=== PATIENT | female | born 1940 | race African-American/Black ===

== ENCOUNTER 2017-03-21 06:24 | Inpatient (IN) | payer BC, OTHER ==
[2017-02-22 14:28] VITALS: BMI 35.0
--- NOTE | 2017-02-22 15:02 | PAT Medication Instructions ---
Service Date Feb 22, 2017. Current Home Medication List Aspirin (Aspir-81), 81 MG PO QAM Chlorthalidone (Hygroton), 25 TAB PO QAM Cyanocobalamin (Vitamin B12), 1 TAB PO QAM Tyzhlsskayv-Cbbrkdtlbvp-Ftj C- (Glucosamine Chondroitin), 1 CAP PO QAM Naproxen (Aleve), 440 MG PO Q12 PRN for Pain Medication Instructions For Your Scheduled Surgery - Check with surgeon for instructions: Naproxen (Aleve), 440 MG PO Q12 PRN for Pain - Hold the following medications 2 weeks prior to surgery (03/07/17): Xlzofbfsfpe-Ngbctdwmuta-Rnf C- (Glucosamine Chondroitin), 1 CAP PO QAM - Hold the following medications the morning of surgery: Cyanocobalamin (Vitamin B12), 1 TAB PO QAM Chlorthalidone (Hygroton), 25 TAB PO QAM - Take the following medications the morning of surgery with a sip of water: Aspirin (Aspir-81), 81 MG PO QAM (okay to continue per surgeon) If you have any questions please call us at [phone] or [phone] or [phone]
--- NOTE | 2017-02-22 15:39 | DIAGNOSTIC IMAGING REPORT ---
CHEST PREADMISSION(PA/LAT) CLINICAL HISTORY: PAT preoperative evaluation COMPARISON STUDY: 10/29/2014 FINDINGS: The bones soft tissues and hemidiaphragms are normal. The cardiomediastinal silhouette is normal. The lungs are clear. The pulmonary vasculature is normal. IMPRESSION: Negative chest. Electronically signed by: Spencer Pierson M.D. 02/22/2017 3:38 PM Dictated Date/Time: 02/22/2017 3:37 PM
[2017-02-22 16:24] LABS: BASO % 0.5 %; BASO ABS # 0.03 K/uL (0-0.2); COMPLETE YES; EOS % 5.3 %; HEMATOCRIT 44.3 % (37-47); IG% 0.3 %; LYMPH % 47.5 %; LYMPH ABS # 2.76 K/uL (1.2-3.4); MEAN CELL VOLUME 87.2 fL (80-100); MEAN CORPUSCULAR HEMOGLOBIN 28.9 pg (25-34); MEAN CORPUSCULAR HGB CONC 33.2 g/dl (32-36); MONO % 6.7 %; NEUT % 39.7 %; PLATELET COUNT 237 K/uL (130-400); RED BLOOD COUNT 5.08 M/uL (4.2-5.4); WHITE BLOOD COUNT 5.81 K/uL (4.8-10.8)
[2017-02-22 16:28] LABS: URINE APPEARANCE CLEAR (CLEAR); URINE BILIRUBIN NEG (NEG); URINE COLOR YELLOW; URINE EPITHELIAL CELL AUTO 20-30 /lpf (0-5); URINE NITRITE NEG (NEG); URINE SPECIFIC GRAVITY 1.026 (1.000-1.030); UROBILINOGEN NEG (NEG)
[2017-02-22 16:31] LABS: MANUAL MICROSCOPIC REQUIRED? NO; REVIEW REQ? NO
[2017-02-22 16:35] LABS: PROTHROMBIN TIME (PATIENT) 10.4 SECONDS (9.0-12.0)
[2017-02-22 16:39] LABS: BUN/CREATININE RATIO 20.3 (10-20); CALCIUM 9.3 mg/dl (8.5-10.1); POTASSIUM 3.8 mmol/L (3.5-5.1)
--- NOTE | 2017-03-07 18:06 | HISTORY & PHYSICAL EXAMINATION ---
DATE OF ADMISSION: 03/21/2017 CHIEF COMPLAINT: Right knee degenerative joint disease. HISTORY OF PRESENT ILLNESS: This 76-year-old -Citizen Of [place] female presents to the office with complaints longstanding history of right knee pain. The pain has been present for several years. It has become worse with time. It is worse with weightbearing and is affecting her ADLs. She notes crepitus with motion. Pain is primarily medial. No catching or locking. No buckling. No numbness or tingling. X-rays have been obtained. She has tried activity modification as well as oral anti-inflammatories and assistive devices without lasting relief. She elects to proceed with right total knee arthroplasty on 03/21/2017 in hopes of alleviating her pain. PAST MEDICAL HISTORY: Significant for history of diverticulitis, hypertension, osteoarthritis, chronic low back pain, obesity, sleep apnea, use of a CPAP, and reflux. PREVIOUS SURGERIES: Total hip replacement on 05/23/2016, colonoscopy x2, laparoscopy in 2014, and sigmoidectomy, unknown date. FAMILY HISTORY: Significant for Alzheimer's disease, breast cancer, colon cancer, and kidney disease. ALLERGIES: NKDA. CURRENT MEDICATIONS: Aspirin 81 mg daily, chlorthalidone 25 mg p.o. daily, Glucosamine chondroitin daily, Protonix 20 mg p.o. daily, and Naprosyn 500 mg p.o. b.i.d. REVIEW OF SYSTEMS: Significant for above stated conditions, otherwise unremarkable. PHYSICAL EXAMINATION: GENERAL: Well-developed and well-nourished elderly -Citizen Of [place] female in no acute distress. Sitting in a chair. Alert and oriented. SKIN: Warm and dry with good turgor. No rashes or lesions. No ecchymosis or erythema. HEENT: Normocephalic and atraumatic. EYES: PERRLA, EOMI. Nares patent bilaterally without turbinate enlargement. Oropharynx without erythema or exudate. No lesions noted. Uvula midline. Oral mucosa moist. Good dentition. HEART: RRR. Soft systolic ejection murmur is noted, 2/6. No gallops or rubs. LUNGS: Clear to auscultation bilaterally. No crackles, rhonchi or wheezing. Good air movement. ABDOMEN: Obese. Bowel sounds present x4. Soft and nontender. No organomegaly. No masses. MUSCULOSKELETAL: Right knee evaluation reveals no significant intraarticular effusion. She has focal discomfort with palpation over the medial joint line. No lateral joint line discomfort today. Stable collateral ligaments. Nearly full terminal extension. Lacks just a few degrees. Flexion to greater than 100 degrees. Strength is 5/5 with fairly good quad tone. No defect in the patellar tendon or quadriceps tendon. Ambulatory with a slightly antalgic gait. There is crepitus associated with motion of the knee. Varus alignment. NEUROLOGIC: Gross sensation is intact across the right leg by soft touch. Peripheral pulses are 2+. DATA: Radiographic imaging previously obtained shows bilateral varus alignment. Tricompartmental osteophytes along with joint space narrowing are present. Subchondral sclerosis is also evident. IMPRESSION: Right knee end-stage degenerative joint disease. PLAN: Informed written consent will be obtained on the day of surgery to proceed with right total knee arthroplasty. I did review the operative procedure, postoperative recovery, and physical therapy requirements. She has already obtained her lab work, EKG, and chest x-ray. She will obtain clearance from her PCP, Dr. Burden and laboratory manager, Dr. Tesfaye. She already has a walker. She would do 2 weeks of home health and then outpatient PT.
[2017-03-21] VITALS (9 sets, daily range): BP systolic 115–160; BP diastolic 67–90; PULSE 56–73; TEMP 36.3–36.7; O2SAT 90–100; Ht 165.1 cm; Wt 97.0 kg
[~2017-03-21] VITALS: Ht 165.1 cm; Wt 97.0 kg
[~2017-03-21 06:24] MED LIST: ASPI-232 PO; CEFAZOLIN 2000 MG/60 ML D5W 60 ML IV SCH; CYAN100020 PO; GLUC1CAP35 PO; HYG/25 PO; LACTATED RINGER'S 1000ML 1,000 ML IV SCH; LACTATED RINGER'S 1000ML IV SCH; NAPR1TAB9 PO; ROPIVACAINE 5MG/ML 30 ML 150 MG, BUPIVACAINE/EPINEPHR 0.5% MPF 30 ML, KETOROLAC TROMETH... INFIL SCH; TRANEXAMIC ACID INJ 1,000 MG in SODIUM CHLORIDE 0.9% 100ML 100 ML IV SCH
--- NOTE | 2017-03-21 06:26 | History & Physical Bridge Note ---
H&P Re-Evaluation Bridge Note: I have examined the patient, reviewed the History & Physical and in the interval since the performance of the History & Physical I have noted the following changes of clinical significance: consent obtained risk list reviewed. No changes noted
[2017-03-21] MEDS ORDERED: BUPIVACAINE 0.25% 30 ML VIAL ONE (06:30)
[2017-03-21] MEDS ORDERED: BUPIVACAINE 0.5 % 5 MG/1 ML PF 10ML VIAL ONE (06:30)
[2017-03-21] MEDS ORDERED: LIDOCAINE HCL 2% 2 ML VIAL (20MG/ML) ONE (07:34)
[2017-03-21] MEDS ORDERED: MIDAZOLAM HCL 1 MG/ML 2ML VIAL ONE ×2 (07:34)
[2017-03-21] MEDS ORDERED: PROPOFOL IV EMULSION 10 MG/ML 20 ML VIAL IV ONE (07:34)
[2017-03-21] MEDS ORDERED: ORTHO JOINT ANESTHETIC ONE (08:46)
[2017-03-21] MEDS ORDERED: POVIDONE-IODINE OP SOLN 30 ML BTL ONE (08:46)
[2017-03-21] MEDS ORDERED: FENTANYL CITRATE INJ 50 MCG/1 ML 2 ML VIAL ONE (09:18)
[2017-03-21] MEDS ORDERED: ROCURONIUM BROMIDE 10 MG/ML 5 ML VIAL ONE (09:38)
[2017-03-21] MEDS ORDERED: EpHEDrine SULFATE 50MG/5ML SYR ONE (09:38)
[2017-03-21] MEDS ORDERED: HYDROmorphone INJ 2 MG/ML SYR/VIAL ONE (09:40)
[2017-03-21] MEDS ORDERED: SODIUM CHLORIDE 0.9% INJ 10 ML VIAL ONE (09:45)
[2017-03-21] MEDS ORDERED: GLYCOPYRROLATE INJ 0.2 MG/ML VIAL ONE (09:46)
[2017-03-21] MEDS ORDERED: DEXAMETHASONE SOD INJ 4 MG/ML VIAL ONE (09:46)
[2017-03-21] MEDS ORDERED: NEOSTIGMINE METHYLSULFATE 5 MG/5 ML SYR ONE (09:46)
[2017-03-21] MEDS ORDERED: ONDANSETRON INJ 2 MG/ML 2 ML VIAL ONE (09:46)
[2017-03-21] MEDS ORDERED: KETOROLAC TROMETHAMINE 30 MG/ML VIAL ONE (10:30)
--- NOTE | 2017-03-21 10:36 | [facility] Post Operative Brief Note ---
Immediate Operative Summary Operative Date Mar 21, 2017. Pre-Operative Diagnosis Right Knee End-Stage Degenerative Joint Disease Post-Operative Diagnosis Right Knee End-Stage Degenerative Joint Disease Procedure(s) Performed Right Total Knee Arthroplasty Surgeon Dr. Hayes Wool Brusher Surgeon(s) DIONNE Partida Estimated Blood Loss 50 ml Findings severe deformity/djd Fluids (cc crystalloids) 1200cc Specimens A. Right Knee Bone and Tissue Drains none Anesthesia GET/block Complication(s) None Disposition Recovery Room / PACU
--- NOTE | 2017-03-21 10:52 | OPERATIVE REPORT ---
DATE OF OPERATION: 03/21/2017 PREOPERATIVE DIAGNOSIS: Severe osteoarthritis, right knee with marked varus flexion deformity. POSTOPERATIVE DIAGNOSIS: Same. OPERATION PERFORMED: Cemented right total knee replacement. SURGEON: Dr. Hayes. ASSOCIATE CURATOR: Danish Angeles PA-C. No resident or fellow available. SUMMARY OF IMPLANTS: Size 3 posterior cruciate substituting femur, size 4 rotating tibial keel baseplate, oval domed 3 pegged patella size 41, size 3 insert to match the femur, posterior cruciate stabilized 15 mm thick. Two bags of Palacos G cement. ESTIMATED BLOOD LOSS: 50 mL. CRYSTALLOID: 1200 mL. PERIOPERATIVE SITUATION: Medically cleared female with intractable bilateral knee pain, right worse than left. X-rays reveal end-stage disease with marked varus deformity, flexion deformity, severe tricompartmental osteophytes and joint space narrowing. OPERATION AND FINDINGS: OPERATION: The patient appropriately identified, site verified, consent verified, 2 grams of Ancef confirmed as being given, 1 gram of TXA confirmed as being given. The right lower extremity was prepped and draped in usual routine fashion. Tourniquet was inflated to 300 mmHg after exsanguination of limb with a rubber Esmarch bandage. Anterior exposure was utilized. Parapatellar arthrotomy performed. Synovectomy completed. Exuberant osteophytes resected. Distal femur then resected 14 mm. Proximal tibia resected 4 mm. The extension gap was excellent. Femur was sized between a 4 and a 3, was measured 4 cut 3. There was no notching. The flexion gap was excellent. The box cut then made and the size 3 trial fit well. The tibia was then broached and reamed to a size 4 and a size 3 spacer with a 15 mm fit best. It gave the best stability in extension and full flexion. The patella was then sized to 41. It was resected leaving 16 mm and the seating hole was made and the trial fit well and tracked well. All trial implants were then removed. The Orthomix was injected about the knee. The wound was irrigated with Betadine Pulsavac and then the permanents cemented into position. After 12 minutes, the tourniquet deflated. After 14 minutes the knee flexed. Minor cement removal occurred. The wound was irrigated one final time with Betadine and Pulsavac. The permanent liner seated. The knee reduced and closed with #1 Ethibond, #1 Vicryl, 2-0 Vicryl and stainless steel clips. Appropriate dressing applied and the patient transferred to recovery room in satisfactory condition having tolerated the procedure well. DVT prophylaxis with Coumadin. I attest to the content of the Intraoperative Record and any orders documented therein. Any exception s are noted below.
[2017-03-21] MEDS ORDERED: ALUMINUM/MAGNESIUM/SIMETH (MAALOX MAX) 30 ML UDC PO PRN (11:00)
[2017-03-21] MEDS ORDERED: BISACODYL 10 MG SUPP PR PRN (11:00)
[2017-03-21] MEDS ORDERED: MoRPHine SULFATE 2 MG/ML CARP IV PRN (11:00)
[2017-03-21] MEDS ORDERED: ACETAMINOPHEN IV 100 ML IV PRN (11:00)
[2017-03-21] MEDS ORDERED: ONDANSETRON INJ 2 MG/ML 2 ML VIAL IV PRN (11:00)
[2017-03-21] MEDS ORDERED: DiphenhydrAMINE HCL 50 MG/ML VIAL IV PRN (11:00)
[2017-03-21] MEDS ORDERED: MAGNESIUM HYDROXIDE SUSP 30 ML UDC PO PRN (11:00)
[2017-03-21] MEDS ORDERED: METOCLOPRAMIDE HCL INJ 5 MG/ML 2 ML VIAL IV PRN (11:00)
--- NOTE | 2017-03-21 11:13 | DIAGNOSTIC IMAGING REPORT ---
RIGHT KNEE 1 OR 2 VIEWS ROUTINE CLINICAL HISTORY: AP/LATERAL IN PACU RIGHT KNEE Right joint replacement COMPARISON: None. DISCUSSION: Anatomic alignment status post total right knee replacement. Good contact between prosthetic and underlying bone. Soft tissue postoperative changes are present. Expected soft tissue postoperative change IMPRESSION: Anatomic alignment status post total right knee replacement. The above report was generated using voice recognition software. It may contain grammatical, syntax or spelling errors. Electronically signed by: Spencer Pierson M.D. 03/21/2017 11:12 AM Dictated Date/Time: 03/21/2017 11:11 AM
--- NOTE | 2017-03-21 11:18 | Anesthesiology Progress Note ---
Anesthesia Post Op Note Date & Time Mar 21, 2017 at 11:17 Vital Signs Pain Intensity: 0 Vital Signs Past 12 Hours Date Time Temp Pulse Resp B/P (MAP) Pulse Ox O2 Delivery O2 Flow Rate FiO2 03/21/17 11:05 66 18 148/75 94 Nasal Cannula 3 03/21/17 10:55 71 16 141/72 97 Oxymask 10 03/21/17 10:46 36.4 82 16 139/73 98 Oxymask 10 03/21/17 07:06 36.7 56 20 142/71 96 Room Air Notes Mental Status: alert / awake / arousable, participated in evaluation Pt Amnestic to Procedure: Yes Nausea / Vomiting: adequately controlled Pain: adequately controlled Airway Patency, RR, SpO2: stable & adequate BP & HR: stable & adequate Hydration State: stable & adequate Anesthetic Complications: no major complications apparent
[2017-03-21] MEDS ORDERED: ATROPINE SULFATE 0.1 MG/ML 5ML SYR IV PRN (11:30)
[2017-03-21] MEDS ORDERED: EpHEDrine SULFATE INJ 50 MG/ML AMP IV PRN (11:30)
[2017-03-21] MEDS ORDERED: MoRPHine SULFATE 4 MG/ML 1 ML CARP\\VIAL IV PRN (12:30)
[2017-03-21] MEDS ORDERED: D5W AND 1/2NSS + 20MEQ KCL 1,000 ML IV SCH (12:30)
[2017-03-21] MEDS ORDERED: KETOROLAC TROMETHAMINE 15 MG/ML VIAL IV. SCH ×2 (12:45→16:00)
[2017-03-21] MEDS: FERROUS GLUCONATE 324 MG TAB PO SCH ×2 (13:10→17:48)
[2017-03-21] MEDS ORDERED: PNEUMOCOCCAL ADMINISTRATION CHARGE ONE (13:15)
[2017-03-21] MEDS ORDERED: PNEUMOCOCCAL POLYSACCHARIDES 25 MCG/0.5 ML VIAL/SYR IM. ONE (13:15)
--- NOTE | 2017-03-21 13:23 | [facility] Operative Report ---
Operative Report Operative Date Mar 21, 2017. Pre-Operative Diagnosis Right Knee End-Stage Degenerative Joint Disease Post-Operative Diagnosis Right Knee End-Stage Degenerative Joint Disease Procedure(s) Performed Right Total Knee Arthroplasty Surgeon Dr. Hayes Steam Locomotive Firer/Fireman Surgeon(s) DIONNE Partida Estimated Blood Loss 50 ml Findings Right knee DJD Fluids 1200cc Specimens A. Right Knee Bone and Tissue Drains none Anesthesia GET/block Complication(s) None Disposition Recovery Room / PACU Indications This 76-year-old -Citizen Of [place] female presented the office complaints of intractable right knee pain. She had tried conservative care measures including activity modification, physical therapy, oral anti-inflammatories, and injection therapy without lasting relief. She elected to proceed with knee replacement in hopes of alleviating her pain. Preoperative imaging was obtained. Description of Procedure She was administered a regional block. Patient was taken to the operating room where she was given general anesthesia. She was prepped and draped in usual sterile fashion. Please see Dr. Hayes's operative report for specifics of the procedure. I was present for the entire case from initial patient positioning through final wound closure. Assistance was provided in tissue traction, hemostasis, trial implant placement, final implant placement, and final wound closure. Patient was taken to the recovery room in satisfactory condition. I attest to the content of the Intraoperative Record and any orders documented therein. Any exceptions are noted below.
[2017-03-21] MEDS ORDERED: NURSING VERBAL MED ORDER ONE (13:30)
--- NOTE | 2017-03-21 13:40 | Progress Note ---
Progress Note Date of Service Mar 21, 2017. Progress Note Progress note postop check. At this point in time she is doing well denies chest pain shortness breath fever chills nausea vomiting or headache. Physical sleepy. Vital signs are stable she's afebrile. Neurovascular check from sciatic nerve is good cast nontender. Postop x-rays look excellent. Assessment: Doing well continue care pathway, mobilize.
[2017-03-21] MEDS: CHLORTHALIDONE 25 MG TAB PO SCH (13:47)
[2017-03-21] MEDS ORDERED: OXYC-57 PO (15:29)
[2017-03-21] MEDS ORDERED: WARF2TAB PO (15:29)
[2017-03-21] MEDS ORDERED: WARFARIN SOD 5 MG TAB PO SCH (16:00)
[2017-03-21] MEDS ORDERED: TRANEXAMIC ACID INJ 1,000 MG in SODIUM CHLORIDE 0.9% 100ML 100 ML IV SCH (16:00)
[2017-03-21] MEDS: KETOROLAC TROMETHAMINE 15 MG/ML VIAL IV. SCH ×2 (16:34→22:04)
[2017-03-21] MEDS: CEFAZOLIN IV 2,000 MG in DEXTROSE 5% 50ML 50 ML IV SCH (17:49)
[2017-03-21] MEDS: ACETAMINOPHEN 325 MG TAB PO PRN (20:58)
[2017-03-21] MEDS: DOCUSATE SODIUM 100 MG CAP PO SCH (20:58)
[2017-03-22] MEDS: CEFAZOLIN IV 2,000 MG in DEXTROSE 5% 50ML 50 ML IV SCH (02:11)
[2017-03-22 03:17] VITALS: BP 138/79; PULSE 56; TEMP 36.5; O2SAT 96
[2017-03-22] MEDS: KETOROLAC TROMETHAMINE 15 MG/ML VIAL IV. SCH ×2 (03:19→11:02)
[2017-03-22 05:43] LABS: HEMATOCRIT 36.8 % (37-47); MEAN CELL VOLUME 86.4 fL (80-100); MEAN CORPUSCULAR HEMOGLOBIN 28.2 pg (25-34); MEAN CORPUSCULAR HGB CONC 32.6 g/dl (32-36); MEAN PLATELET VOLUME 11.1 fL (7.4-10.4); PLATELET COUNT 203 K/uL (130-400); RED BLOOD COUNT 4.26 M/uL (4.2-5.4); WHITE BLOOD COUNT 12.48 K/uL (4.8-10.8)
[2017-03-22 05:51] LABS: PROTHROMBIN TIME (PATIENT) 10.4 SECONDS (9.0-12.0)
[2017-03-22 06:17] LABS: CALCIUM 9.1 mg/dl (8.5-10.1); CREATININE 1.3 mg/dl (0.60-1.20)
--- NOTE | 2017-03-22 07:27 | PROGRESS NOTE ---
DATE: 03/22/2017 Postop day #1. At this point the patient is doing well, has no major issues. She is sleeping comfortably with her CPAP machine on. She denies any nausea, vomiting, chest pain, shortness of breath, fever or chills. Vital signs are stable. She is afebrile. Wound dressing clean, dry and intact. Neurovascular check, femoral sciatic nerve normal. Calf is nontender. Abdomen soft, nontender. Laboratory work reveals hematocrit is stable in the 36 range. INR is 1.0. Chemistry is good. Creatinine slightly elevated. ASSESSMENT: Doing well. Plan is for PT, OT today. Social service assessment. If she does well with PT, OT, discharge today. Coumadin per nomogram today. Will discharge on 4 mg daily after that. Check INR on Sunday.
[2017-03-22] MEDS ORDERED: DEXAMETHASONE INJ 10 MG in SYRINGE 0 ML IV ONE (07:30)
--- NOTE | 2017-03-22 07:37 | DISCHARGE SUMMARY ---
DATE OF POTENTIAL DISCHARGE: 03/22/2017 versus 03/23/2017. CHIEF COMPLAINT: Right knee pain. HISTORY OF PRESENT ILLNESS: A 76-year-old female with multiple joint arthropathies, who had a right hip replacement done earlier in the year, now having a right knee replacement. She also has significant left knee arthritis. She underwent elective right total knee replacement yesterday and has done well. She is eating, ambulating and voiding with no difficulty. PAST MEDICAL HISTORY: Remarkable for diverticulitis, hypertension, osteoarthritis, back pain, obesity, sleep apnea, CPAP use, and reflux. PAST SURGICAL HISTORY: Include total hip replacement in May 2016, colonoscopies, laparoscopy, sigmoidectomy unknown date. FAMILY HISTORY: Remarkable for Alzheimer's disease, breast cancer, colon cancer, and kidney disease. ALLERGIES: None. PREADMISSION MEDICATIONS: Include 81 mg aspirin daily, chlorthalidone 25 mg daily, Protonix 20 mg daily, p.r.n. Naprosyn and glucosamine. REVIEW OF SYSTEMS: Reveals no chest pain, shortness of breath, fevers, chills, nausea, vomiting or headache. Hospital course has been uneventful. At this point in time laboratory work is stable. Slight elevation of her creatinine, will need to encourage p.o. and fluid intake, avoid nonsteroidals. Wound dressing clean, dry and intact. Neurovascular check is normal. Hematocrit stable. INR subtherapeutic. ASSESSMENT: Doing well. Discharge after successful PT, OT sessions either later today or tomorrow. Will conditionally prepare for today. Will follow up in the office in 2 weeks.
[2017-03-22 08:05] VITALS: BP 124/70; PULSE 66; TEMP 37; O2SAT 94
[2017-03-22 08:22] VITALS: O2SAT 94
--- NOTE | 2017-03-22 08:27 | Discharge Instructions ---
Discharge Instructions Date of Service Mar 21, 2017. Admission Reason for Admission: Right Knee Degenerative Joint Disease Discharge Discharge Diagnosis / Problem: Right knee s/p total knee replacement Discharge Goals Goal(s): Decrease discomfort, Improve function, Increase independence Activity Recommendations Activity Limitations: as noted below Lifting Limitations: gradually increase as tolerated Exercise/Sports Limitations: until after follow-up appointment Shower/Bathe: keep incision dry Driving or Machine Use: No driving until cleared by Dr. Hayes Weightbearing Status: Right weightbearing (as tolerated) . Instructions / Follow-Up Instructions / Follow-Up New Medicine: * You will likely be taking one or more of these medications: 1. Percocet - Take, as directed, when you need it, every four to six hours to control your pain. 2. Coumadin - Thins your blood to lessen the chance of forming a blood clot. The dose of this is different for each person and is based on your blood tests that are done twice a week. * The most common side effects of pain medicine and iron are nausea and constipation. If nausea or constipation is too much of a problem or if you have any questions about your new medicines or doses, call [facility] at . We will try to help you manage these issues. VERY IMPORTANT TO READ AND REVIEW" Blood Clots and Blood Thinning Medicine: * You are given Coumadin during the immediate post-operative period to lessen the risk of blood clots forming in your legs and/or lungs. Coumadin is usually given for six weeks after surgery. * The prescription is for 2 mg tablets. At discharge, you should understand your dose and take it all at the same time every day, preferably after dinner. * You need to get your blood checked 1 - 2 times per week for six weeks or as directed. * If your dose needs to change, we will call you. Do not take your medication on the day of the blood test until we call you. Pain: * The immediate post-operative period after knee replacement surgery is often quite painful. * You are given a prescription for pain medicine. You should take it, as directed, when you need it, especially before physical therapy and before going to bed. Pain that interferes with sleep is very common and can last several months. * You will likely need pain medicine for the first four to six weeks. It will not stop all of the pain. The pain will lessen and as you feel better, you may change to milder pain medicine such as Tylenol. * The most common side effects of pain medicine are nausea and constipation, so don't take more than you need. Physical Therapy: * You will have physical therapy two or three times each week for four to six weeks after your surgery in order to regain your knee range of motion and to retrain your knee to work properly. * It is just as important to make sure you are getting your knee perfectly straight as it is to regain your knee bend. * Taking a pain pill an hour before therapy can help you have a more productive and comfortable therapy session if needed. Home Exercise: * You were shown a series of exercises (heel props, heel slides, etc.) in the hospital. Do these exercises three to four times each day including the exercises you were shown in physical therapy. Walking: * Get up and walk several times each day. For the first four weeks, try not to stand or walk for more than one hour at a time. If you do stand or walk for more than one hour, you will not hurt anything, but your knee and leg will likely swell. * As you feel comfortable, you may change from the walker or crutches to a cane and then to independent walking. SELF CARE INSTRUCTIONS AFTER TOTAL KNEE REPLACEMENT A. You may need to continue a physical therapy program after discharge from the hospital. There are several options available to you. Your doctor will assist you in selecting the best one for you. 1. An out-patient facility 2 to 3 times a week for therapy or home therapy. 2. Continue working on all exercises taught to you in the hospital. Your goals should be to increase bending of your knee to 90 degrees and beyond and to fully straighten your knee. B. You may progress at your own pace from walking with a walker or crutches to a cane; then to no assistive devices. C. Make walking a part of your daily routine. Be up as much as comfortable with rest periods throughout the day. Rest with leg elevation is very important. Use the ice wrap frequently for the first 3-4 weeks. D. There are no restrictions on activities. You may ride in a car, shop, participate in meter changes records clerk and all social activities. E. Wear the long elastic stockings (JEN hose) 20 hours a day for six weeks after surgery. They can be removed several times a day for laundering and for a shower. F. Do not place a pillow behind your knee when resting. A pillow at your ankle is okay. VERY IMPORTANT TO READ AND REVIEW A. Take Coumadin, Aspirin or Lovenox (blood thinning medications) as directed by your doctor. If on Coumadin, have a pro-time (blood test) drawn according to your doctor's instructions. This will tell the doctor how well the Coumadin is thinning your blood. 1. YOU WILL BE GIVEN AN ORDER AT DISCHARGE FOR PT/INR (BLOOD WORK). PLEASE HAVE THIS DONE INSTRUCTED. PLEASE CALL OUR OFFICE AFTER YOUR BLOODWORK IS COMPLETE SO WE CAN TRACK YOUR RESULTS. IF YOU ARE GOING TO OUTPATIENT PHYSICAL THERAPY, YOU WILL NEED TO GO TO OUTPATIENT TESTING TO HAVE IT DRAWN. B. There are a few signs you need to watch for after you are home. Call [facility] if you notice any of the followin. Increased severe knee pain. Some pain is expected especially when you exercise. 2. Increased swelling in your leg or knee; pain or swelling of the calf muscle in either lower leg. 3. Any fluid drainage from the incision. 4. Shortness of breath or chest pain. C. Please call [facility] at if you have any concerns or questions about your operation or recovery. The doctor or his nurse will return your call promptly. D. You must take antibiotics before dental work, bladder, bowel or other surgery. Call the office to obtain a prescription at least 2 days prior to your appointment. * CALL IF INCREASED PAIN, REDNESS, DRAINAGE OR FEVER GREATER THAT 101. * Sutures should be removed 12-14 days after surgery unless you are on chronic steriods, then it will be 14-18 days after surgery. Call your doctor if: * Temperature above 101 degrees F. * Pain not relieved by pain medicine ordered. * Increased drainage or redness from incision. * Notify your doctor with any questions or concerns. Current Hospital Diet Patient's current hospital diet: Regular Diet Discharge Diet Recommended Diet: Regular Diet Procedures Procedures Performed: Right Total Knee Arthroplasty Pending Studies Studies pending at discharge: no Medical Emergencies . Who to Call and When: Medical Emergencies: If at any time you feel your situation is an emergency, please call 911 immediately. . Non-Emergent Contact Non-Emergency issues call your: Primary Care Provider, Surgeon Call Non-Emergent contact if: temperature is above 101, wound has increased drainage, wound has increased redness, wound has increased pain, you have any medication questions . "Provider Documentation" section prepared by Danish Angeles PA-C. . VTE Core Measure Inpt VTE Proph given/why not?: Warfarin (Coumadin), T.E.D. Stockings, SCD's [place] Drug Monitoring Program Search Results: no issues identified
--- NOTE | 2017-03-22 08:31 | Orthopedic Progress Note ---
Orthopedic Progress Note Date of Service Mar 22, 2017. Subjective Post OP Day: 1 Reports: feeling well, Denies: complaints, chest pain, SOB, nausea / vomiting, light headedness, calf pain Additional Notes: states she did not sleep much due to interruptions. Really doesn't have much pain. Objective calves soft nontender, N/V intact, capillary refill less than 2 sec., dressing C /D/I, incision C/D/I, A&O x3, toes mobile, CMS intact dried drainage on dressings. No active bleeding. Able to do a straight leg raise. Date Time Temp Pulse Resp B/P (MAP) Pulse Ox O2 Delivery O2 Flow Rate FiO2 03/22/17 08:22 94 Room Air 03/22/17 08:13 Room Air 03/22/17 08:05 37.0 66 15 124/70 (88) 94 Room Air 03/22/17 03:17 36.5 56 16 138/79 (98) 96 CPAP 03/21/17 23:26 Room Air 03/21/17 23:00 36.4 59 16 143/73 (96) 100 Room Air 03/21/17 21:30 36.4 70 16 136/76 (96) 95 Room Air 03/21/17 16:30 Nasal Cannula 03/21/17 15:01 36.3 59 18 124/75 (91) 94 Room Air 03/21/17 14:30 73 16 115/70 (85) 97 03/21/17 13:45 56 16 123/67 (85) 92 03/21/17 12:45 69 16 160/90 (113) 93 03/21/17 12:00 60 16 153/81 (105) 93 03/21/17 11:59 90 Nasal Cannula 3.0 03/21/17 11:30 90 Nasal Cannula 3.0 03/21/17 11:30 36.4 60 16 153/76 (101) 90 Nasal Cannula 3.0 03/21/17 11:15 36.4 63 16 153/74 93 Nasal Cannula 3 03/21/17 11:05 66 18 148/75 94 Nasal Cannula 3 03/21/17 10:55 71 16 141/72 97 Oxymask 10 03/21/17 10:46 36.4 82 16 139/73 98 Oxymask 10 Laboratory Results 24 Hours: Test 03/22/17 05:21 Hematocrit 36.8 % Hemoglobin 12.0 g/dL Prothromb Time International Ratio 1.0 Prothrombin Time 10.4 SECONDS Assessment & Plan Assessment: Right knee post op day 1 total knee arthroplasty Plan: PT/OT today coumadin per nomogram dressing changed today by me-wound looks very good plan for D/C to home today with home health if she does well in PT/OT continue immobilizer for protection today and tomorrow when out of bed. follow up in the office in 2 weeks for staple removal. Discharge Planning Discharge Planning: home with home health Pain Management: Percocet DVT Prophylaxis: TEDs, SCDs, Coumadin Therapy: Physical Therapy
[2017-03-22] MEDS: DOCUSATE SODIUM 100 MG CAP PO SCH (08:54)
[2017-03-22] MEDS: FERROUS GLUCONATE 324 MG TAB PO SCH ×2 (08:54→12:30)
[2017-03-22] MEDS: CHLORTHALIDONE 25 MG TAB PO SCH (08:55)
[2017-03-22] MEDS: ACETAMINOPHEN 325 MG TAB PO PRN (08:58)
[2017-03-22] MEDS ORDERED: ASPIRIN 81 MG ECTAB PO SCH (09:00)
[2017-03-22] MEDS ORDERED: MULTIVITAMIN TAB PO SCH (09:00)
[2017-03-22] MEDS ORDERED: PANTOprazole SOD 40 MG TAB PO SCH (09:00)
[2017-03-22] MEDS: OXYCODONE HCL IR 5 MG TAB (IMMEDIATE RELEASE) PO PRN ×2 (09:54→13:46)
[2017-03-22 12:05] VITALS: BP_SYST 146; BP_SYST 147; BP_DIAS 72; BP_DIAS 73; PULSE 61; TEMP 36.9; O2SAT 97
[2017-03-22 12:21] VITALS: BP 124/70; PULSE 66; TEMP 37; O2SAT 94
[2017-03-22] MEDS ORDERED: WARFARIN SOD 5 MG TAB PO ONE (16:00)
== END 2017-03-22 14:15 | disposition home health service (06) | DRG 470 ==
LOC: C.ACU 06:24 → C.3E 06:25 → ENRESERV 11:02
PROVIDERS: ADMIT Physical Medicine & Rehabilitation Sports Medicine; ATTEND Physical Medicine & Rehabilitation Sports Medicine
PROC: 0SRC0J9 Replacement of Right Knee Joint with Synthetic Substitute, Cemented, Open Approach (ICD-10-PCS; principal; 2017-03-21 09:00)
DX: M17.11 Unilateral primary osteoarthritis, right knee (principal); I10 Essential (primary) hypertension; E66.9 Obesity, unspecified; Z68.35 Body mass index [BMI] 35.0-35.9, adult; G89.29 Other chronic pain; M54.5 Low back pain; G47.30 Sleep apnea, unspecified; K21.9 Gastro-esophageal reflux disease without esophagitis; Z96.641 Presence of right artificial hip joint; Z90.49 Acquired absence of other specified parts of digestive tract; Z87.19 Personal history of other diseases of the digestive system; Z79.1 Long term (current) use of non-steroidal anti-inflammatories (NSAID); Z79.82 Long term (current) use of aspirin; Z79.899 Other long term (current) drug therapy; Z80.0 Family history of malignant neoplasm of digestive organs; Z80.3 Family history of malignant neoplasm of breast; Z82.0 Family history of epilepsy and other diseases of the nervous system; Z84.1 Family history of disorders of kidney and ureter

== ENCOUNTER → 2017-03-26 | Outpatient (CLI) | payer BC ==
[~2017-03-26] MED LIST changes: -CEFAZOLIN 2000 MG/60 ML D5W 60 ML IV SCH; -GLUC1CAP35 PO; -LACTATED RINGER'S 1000ML 1,000 ML IV SCH; -LACTATED RINGER'S 1000ML IV SCH; -NAPR1TAB9 PO; +OXYC-57 PO; -ROPIVACAINE 5MG/ML 30 ML 150 MG, BUPIVACAINE/EPINEPHR 0.5% MPF 30 ML, KETOROLAC TROMETH... INFIL SCH; -TRANEXAMIC ACID INJ 1,000 MG in SODIUM CHLORIDE 0.9% 100ML 100 ML IV SCH; +WARF2TAB PO
[2017-03-26 13:10] LABS: INR 1.1 (0.9-1.1); PROTHROMBIN TIME (PATIENT) 11.9 SECONDS (9.0-12.0)
--- NOTE | 2017-04-20 10:46 | CODING QUERY NO DIAGNOSIS ---
Valid Physician Order Needed A valid physician order must be submitted in order to properly bill for the service(s) provided, including date of service(s), valid diagnosis, and physician signature. If these tests are done on a recurring basis the original physican order must be submitted in order to code and bill for the service(s) provided. Please fax us the original, signed physician order so that we may expedite billing to [phone] DOS 03/26/2017 * PT/INR Thank you [facility] Management Thank you [employer] [facility] Once completed, please kindly fax back to [phone] For questions please call [phone]
== END | disposition home or self-care (01) ==
LOC: C.LABSPEC 12:44
PROVIDERS: ATTEND Physical Medicine & Rehabilitation Sports Medicine
DX: M21.162 Varus deformity, not elsewhere classified, left knee (principal); M54.5 Low back pain; Z47.1 Aftercare following joint replacement surgery

== ENCOUNTER → 2017-03-30 | Outpatient (CLI) | payer BC ==
[2017-03-30 10:32] LABS: INR 1.1 (0.9-1.1); PROTHROMBIN TIME (PATIENT) 12.2 SECONDS (9.0-12.0)
--- NOTE | 2017-04-10 08:24 | CODING QUERY NO DIAGNOSIS ---
Valid Physician Order Needed A valid physician order must be submitted in order to properly bill for the service(s) provided, including date of service(s), valid diagnosis, and physician signature. If these tests are done on a recurring basis the original physican order must be submitted in order to code and bill for the service(s) provided. Please fax us the original, signed physician order so that we may expedite billing to [phone] DOS 03/30/17 * PT/INR ORDERED BY DR. CLANCY Thank you [facility] Information Management
== END | disposition home or self-care (01) ==
LOC: C.LABSPEC 09:48
PROVIDERS: ATTEND Physical Medicine & Rehabilitation Sports Medicine
DX: Z47.1 Aftercare following joint replacement surgery (principal); Z51.81 Encounter for therapeutic drug level monitoring; Z79.01 Long term (current) use of anticoagulants

== ENCOUNTER → 2017-04-02 | Outpatient (CLI) | payer BC ==
[2017-04-02 14:43] LABS: INR 1.6 (0.9-1.1)
--- NOTE | 2017-04-10 08:26 | CODING QUERY NO DIAGNOSIS ---
Valid Physician Order Needed A valid physician order must be submitted in order to properly bill for the service(s) provided, including date of service(s), valid diagnosis, and physician signature. If these tests are done on a recurring basis the original physican order must be submitted in order to code and bill for the service(s) provided. Please fax us the original, signed physician order so that we may expedite billing to [phone] DOS 04/02/17 * PT/INR ORDERED BY DR. CLANCY Thank you [facility] Information Management
== END | disposition home or self-care (01) ==
LOC: C.LABSPEC 14:19
PROVIDERS: ATTEND Physical Medicine & Rehabilitation Sports Medicine
DX: Z47.1 Aftercare following joint replacement surgery (principal); Z51.81 Encounter for therapeutic drug level monitoring; Z79.01 Long term (current) use of anticoagulants

== ENCOUNTER → 2017-04-09 | Outpatient (CLI) | payer BC ==
[2017-04-09 16:06] LABS: INR 3.2 (0.9-1.1); PROTHROMBIN TIME (PATIENT) 36.4 SECONDS (9.0-12.0)
== END | disposition home or self-care (01) ==
LOC: C.LAB1850 14:03
PROVIDERS: ATTEND Physician Assistant
DX: Z51.81 Encounter for therapeutic drug level monitoring (principal); Z79.01 Long term (current) use of anticoagulants

== ENCOUNTER → 2017-04-19 | Outpatient (CLI) | payer BC ==
--- NOTE | 2017-04-19 15:39 | MAMMOGRAPHY REPORT ---
BILATERAL DIGITAL SCREENING MAMMOGRAM WITH CAD: 04/19/2017 CLINICAL HISTORY: Routine screening. Patient has no complaints. TECHNIQUE: Bilateral CC and MLO views were obtained. Current study was also evaluated with a Compute r Aided Detection (CAD) system. COMPARISON: Comparison is made to exams dated: 10/01/2015 mammogram, 07/31/2012 mammogram, 07/14/2009 mammogram - [facility], 12/06/2006, and 01/25/2005 mammogram - [facility]. BREAST COMPOSITION: There are scattered areas of fibroglandular density in both breasts. FINDINGS: There is stable asymmetry in the lateral left breast, and stable benign-appearing masses ve rsus benign duct ectasia in the subareolar right breast. No new suspicious mass, architectural disto rtion or cluster of microcalcifications is seen. IMPRESSION: ACR BI-RADS CATEGORY 1: NEGATIVE There is no mammographic evidence of malignancy. A 1 year screening mammogram is recommended. The pa tient will receive written notification of the results. Approximately 10% of breast cancers are not detected with mammography. A negative mammographic report should not delay biopsy if a clinically suggestive mass is present. Anjelica Amador M.D. ay/:04/19/2017 15:21:30 Grease Cup Filler: Alondra Malloy RT(R)(Jordana)(DYASI), [facility] letter sent: Normal 1/2 BI-RADS Code: ACR BI-RADS Category 1: Negative
== END | disposition home or self-care (01) ==
LOC: C.MAMM 13:20
PROVIDERS: ATTEND Nurse Practitioner Family
DX: Z12.31 Encounter for screening mammogram for malignant neoplasm of breast (principal); Z13.820 Encounter for screening for osteoporosis; M85.852 Other specified disorders of bone density and structure, left thigh

== ENCOUNTER → 2017-05-21 | Outpatient (CLI) | payer BC | END | disposition home or self-care (01) | LOC: C.RDSM 13:51 | PROVIDERS: ATTEND Physical Medicine & Rehabilitation Sports Medicine | DX: Z47.1 Aftercare following joint replacement surgery (principal); Z96.659 Presence of unspecified artificial knee joint ==

== ENCOUNTER 2017-08-29 06:21 | Inpatient (IN) | payer BC, OTHER ==
[2017-08-10 12:13] LABS: BASO % 0.7 %; BASO ABS # 0.03 K/uL (0-0.2); EOS % 7.5 %; HEMATOCRIT 42.8 % (37-47); HEMOGLOBIN 14.1 g/dL (12.0-16.0); LYMPH % 48.3 %; LYMPH ABS # 1.94 K/uL (1.2-3.4); MEAN CELL VOLUME 85.8 fL (80-100); MEAN CORPUSCULAR HEMOGLOBIN 28.3 pg (25-34); MEAN CORPUSCULAR HGB CONC 32.9 g/dl (32-36); MEAN PLATELET VOLUME 11.7 fL (7.4-10.4); MONO % 8.5 %; MONO ABS # 0.34 K/uL (0.11-0.59); NEUT ABS # 1.41 K/uL (1.4-6.5); PLATELET COUNT 239 K/uL (130-400); RED CELL DISTRIBUTION WIDTH CV 14.9 % (11.5-14.5); WHITE BLOOD COUNT 4.02 K/uL (4.8-10.8)
[2017-08-10 12:42] LABS: BLOOD UREA NITROGEN 18 mg/dl (7-18); CALCIUM 9.3 mg/dl (8.5-10.1); CARBON DIOXIDE 29 mmol/L (21-32); CREATININE 0.93 mg/dl (0.60-1.20); GLUCOSE 114 mg/dl (70-99); POTASSIUM 3.5 mmol/L (3.5-5.1); SODIUM 138 mmol/L (136-145)
[2017-08-20 13:11] VITALS: BMI 35.0
--- NOTE | 2017-08-22 15:32 | HISTORY & PHYSICAL EXAMINATION ---
DATE OF ADMISSION: 08/29/2017 CHIEF COMPLAINT: Left knee pain. HISTORY OF PRESENT ILLNESS: This 77-year-old -[place] female presented to the office with complaints of left knee pain that has been ongoing for several years. It has become worse with time. It is worse with ambulation and is affecting her ADLs. She has tried activity modification as well as oral anti-inflammatories and physical therapy without improvement. X-rays have been obtained. She elects to proceed with left total knee arthroplasty in hopes of alleviating her discomfort. She has a history of previous right total knee arthroplasty and right total hip arthroplasty with improvement in pain at those sites. PAST MEDICAL HISTORY: Significant for a history of heart murmur, hypertension, sleep apnea, uses CPAP, osteoarthritis, chronic neck pain, chronic low back pain, GERD, hiatal hernia, varicose veins, diverticula of the colon, osteopenia, and obesity. PREVIOUS SURGERIES: Sigmoidectomy, laparoscopy, colonoscopies, right total hip in May 2016, right total knee in March 2017, and wrist surgery. FAMILY HISTORY: Significant for Alzheimer's disease, breast cancer, colon cancer, and kidney disease. Parents are . ALLERGIES: NKDA. CURRENT MEDICATIONS: Aspirin 81 mg daily, chlorthalidone 25 mg p.o. daily, glucosamine chondroitin daily, and amoxicillin prior to dental procedures. Recently on Zithromax. REVIEW OF SYSTEMS: Significant for above stated conditions, otherwise unremarkable. PHYSICAL EXAMINATION: GENERAL: Well-developed and well-nourished elderly white female in no acute distress. Sitting on a bed. Alert and oriented. SKIN: Warm and dry with good turgor. No rashes or lesions. No ecchymosis or erythema. HEENT: Normocephalic and atraumatic. Eyes: PERRLA, EOMI. Nares patent bilaterally without turbinate enlargement. Oropharynx is without erythema or exudate. No lesions noted. Uvula midline. Oral mucosa moist. Good dentition. HEART: RRR. Soft systolic ejection murmur is noted, 2/6. No gallops or rubs. LUNGS: Clear to auscultation bilaterally. No crackles, rhonchi or wheezing. Good air movement. ABDOMEN: Obese. Bowel sounds present x4. Soft and nontender. No organomegaly. No masses. MUSCULOSKELETAL: Left knee evaluation reveals no significant intraarticular effusion. She has focal discomfort with palpation over the medial joint line. There is also lateral joint line discomfort today. Stable collateral ligaments. Near full terminal extension. She lacks just a few degrees. Flexion to greater than 100 degrees. Strength is 5/5 with fair quad tone. No defect in the patellar tendon or quadriceps tendon. Ambulatory with a slightly antalgic gait. There is a patellofemoral crepitus with motion. Varus alignment. NEUROLOGIC: Gross sensation is intact across the left leg by soft touch. Cranial nerves II-XII are intact. DATA: Radiographic imaging previously obtained shows varus alignment with tricompartmental osteophytes and joint space narrowing. She also has subchondral sclerosis. IMPRESSION: Left knee end-stage degenerative joint disease. PLAN: Postoperative prescriptions for Percocet and Coumadin will be provided at discharge from the hospital. Anticipate discharge to home with home health for 2 weeks and then outpatient PT. She already has a walker. Informed written consent has been obtained. Preoperative lab work, EKG, and chest x-ray have been ordered. She will make an appointment for medical clearance with her PCP.
[~2017-08-29] VITALS: Ht 165.1 cm; Wt 98.0 kg
[2017-08-29] VITALS (8 sets, daily range): BP systolic 116–139; BP diastolic 66–77; PULSE 57–71; TEMP 36.3–36.6; O2SAT 91–97; Ht 165.1 cm; Wt 98.0 kg
[~2017-08-29 06:21] MED LIST changes: +CEFAZOLIN 2000MG IV PUSH 10 ML IV SCH; +GLUCTAB7 PO; +LACTATED RINGER'S 1000ML 1,000 ML IV SCH; +LACTATED RINGER'S 1000ML 500 ML IV SCH; +LACTATED RINGER'S 1000ML IV SCH; +NAPR1TAB9 PO; -OXYC-57 PO; +ROPIVACAINE 5MG/ML 30 ML 150 MG, BUPIVACAINE/EPINEPHR 0.5% MPF 30 ML, KETOROLAC TROMETH... INFIL SCH; +TRANEXAMIC ACID INJ 1,000 MG in SYRINGE 0 ML IV SCH; -WARF2TAB PO
[2017-08-29] MEDS ORDERED: BUPIVACAINE 0.5 % 5 MG/1 ML PF 10ML VIAL ONE (06:27)
--- NOTE | 2017-08-29 06:27 | History & Physical Bridge Note ---
H&P Re-Evaluation Bridge Note: I have examined the patient, reviewed the History & Physical and in the interval since the performance of the History & Physical I have noted the following changes of clinical significance: consent reviewed.No changes noted
[2017-08-29] MEDS ORDERED: BUPIVACAINE 0.25% 30 ML VIAL ONE (06:28)
[2017-08-29] MEDS ORDERED: FENTANYL CITRATE INJ 50 MCG/1 ML 2 ML VIAL ONE ×2 (07:24→09:11)
[2017-08-29] MEDS ORDERED: PROPOFOL IV EMULSION 10 MG/ML 20 ML VIAL IV ONE (07:24)
[2017-08-29] MEDS ORDERED: MIDAZOLAM HCL 1 MG/ML 2ML VIAL ONE (07:24)
[2017-08-29] MEDS ORDERED: LIDOCAINE HCL 2% 2 ML VIAL (20MG/ML) ONE (07:24)
[2017-08-29] MEDS ORDERED: POVIDONE-IODINE OP SOLN 30 ML BTL ONE (08:30)
[2017-08-29] MEDS ORDERED: ORTHO JOINT ANESTHETIC ONE (08:30)
[2017-08-29] MEDS ORDERED: HYDROmorphone INJ 1 MG/ML SYR IV PRN (09:15)
[2017-08-29] MEDS ORDERED: ONDANSETRON INJ 2 MG/ML 2 ML VIAL IV PRN ×2 (09:15→10:45)
[2017-08-29] MEDS ORDERED: EpHEDrine SULFATE INJ 50 MG/ML AMP IV PRN (09:15)
[2017-08-29] MEDS ORDERED: ATROPINE SULFATE 0.1 MG/ML 5ML SYR IV PRN (09:15)
[2017-08-29] MEDS ORDERED: FENTANYL CITRATE INJ 50 MCG/1 ML 2 ML VIAL IV PRN (09:15)
[2017-08-29] MEDS ORDERED: DEXAMETHASONE SOD INJ 4 MG/ML VIAL ONE (09:16)
[2017-08-29] MEDS ORDERED: ROCURONIUM BROMIDE 10 MG/ML 5 ML VIAL IV ONE (09:16)
[2017-08-29] MEDS ORDERED: HYDROmorphone INJ 2 MG/ML SYR/VIAL ONE (09:21)
[2017-08-29] MEDS ORDERED: ONDANSETRON INJ 2 MG/ML 2 ML VIAL ONE (09:35)
[2017-08-29] MEDS ORDERED: CEFAZOLIN SOD 1 GM VIAL ONE (09:39)
[2017-08-29] MEDS ORDERED: GLYCOPYRROLATE INJ 0.2 MG/ML VIAL ONE (10:12)
[2017-08-29] MEDS ORDERED: NEOSTIGMINE METHYLSULFATE 5 MG/5 ML SYR ONE (10:12)
--- NOTE | 2017-08-29 10:24 | [facility] Post Operative Brief Note ---
Immediate Operative Summary Operative Date Aug 29, 2017. Pre-Operative Diagnosis Left Knee End-Stage Degenerative Joint Disease Post-Operative Diagnosis Left Knee End-Stage Degenerative Joint Disease Procedure(s) Performed Left Total Knee Arthroplasty Surgeon Dr. Hayes Crew Trainer Surgeon(s) DIONNE Partida Estimated Blood Loss 75 ml Findings severe djd/contracture Fluids (cc crystalloids) 1200cc Specimens A. Left Knee Bone and Tissue Drains none Anesthesia GET/block Complication(s) None Disposition Recovery Room / PACU
[2017-08-29] MEDS ORDERED: ACETAMINOPHEN IV 100 ML IV PRN (10:45)
[2017-08-29] MEDS ORDERED: DiphenhydrAMINE HCL 50 MG/ML VIAL IV PRN (10:45)
[2017-08-29] MEDS ORDERED: MAGNESIUM HYDROXIDE SUSP 30 ML UDC PO PRN (10:45)
[2017-08-29] MEDS ORDERED: METOCLOPRAMIDE HCL INJ 5 MG/ML 2 ML VIAL IV PRN (10:45)
[2017-08-29] MEDS ORDERED: MoRPHine SULFATE 2 MG/ML CARP IV PRN ×2 (10:45→13:00)
[2017-08-29] MEDS ORDERED: ALUMINUM/MAGNESIUM/SIMETH (MAALOX MAX) 30 ML UDC PO PRN (10:45)
[2017-08-29] MEDS ORDERED: BISACODYL 10 MG SUPP PR PRN (10:45)
[2017-08-29] MEDS ORDERED: ACETAMINOPHEN 325 MG TAB PO PRN (10:45)
--- NOTE | 2017-08-29 11:02 | OPERATIVE REPORT ---
DATE OF OPERATION: 08/29/2017 PREOPERATIVE DIAGNOSIS: Osteoarthritis left knee with varus flexion deformity. POSTOPERATIVE DIAGNOSIS: Same. OPERATION PERFORMED: Cemented left total knee replacement. SURGEON: Dr. Hayes. CUSTODIAN SUPERVISOR: Danish [place] PA-C. No resident or fellow available. SUMMARY OF IMPLANTS: Size 3 posterior cruciate substituting femur, size 3 rotating tibial platform tray, oval domed 3 pegged patella size 41, tibial insert size 3, posterior cruciate substituting 10 mm thick. Two bags of Palacos G cement. ESTIMATED BLOOD LOSS: 75 mL. CRYSTALLOID: 1200 mL. DVT prophylaxis per protocol. OPERATION: The patient appropriately identified, site verified, consent verified, 2 grams of Ancef confirmed as being given. The left lower extremity was prepped and draped in usual routine fashion. She had varus alignment and flexion contracture about 12 degrees. The knee was prepped and draped in usual routine fashion. Tourniquet inflated to 300 mmHg after exsanguination of limb with a rubber Esmarch bandage for a total of approximately 49 minutes. Midline exposure utilized. Parapatellar arthrotomy performed. Synovectomy completed. Appropriate soft tissue releases performed. Distal femur resected 14 mm. Proximal tibia resected 4 mm. The extension gap was excellent. Femur sized between a 4 and 3, was measured 4 cut 3. No notching. The flexion gap was excellent. The Orthomix was injected in the posterior capsule. The flexion gap was excellent. The box cut was then made and the size 3 trial fit well. The tibia was then broached and reamed to a size 3, 10 mm spacer placed and it was stable in all planes including mid range flexion. The patella tracked well. The patella was then resected by putting in a 41 trial with excellent positioning and tracking. All trial elements were then removed. The Orthomix was then injected. The wound was then irrigated with Betadine and Pulsavac and then the permanent cemented into position. After 12 minutes, the tourniquet inflated. After additional 2 minutes, the knee flexed and the trial implant removed. The wound irrigated with Betadine and Pulsavac. No cement removal required. The knee was then reduced with the permanent spacer knee and again everything tracked well. The knee was stable. The wound was then closed with #1 Ethibond, #1 Vicryl, 2-0 Vicryl and stainless steel clips. Appropriate dressing applied. The patient transferred to recovery room in satisfactory condition having tolerated the procedure well. It should be stated that after 12 minutes of curing the cement, the tourniquet was deflated. No major bleeding encountered. Permanent pathology pending on the specimen. DVT prophylaxis per protocol. I attest to the content of the Intraoperative Record and any orders documented therein. Any exception s are noted below.
--- NOTE | 2017-08-29 11:14 | DIAGNOSTIC IMAGING REPORT ---
L KNEE 1 OR 2 VIEWS ROUTINE CLINICAL HISTORY: Left knee degenerative joint disease status post arthroplasty. COMPARISON: Knee radiographs May 21, 2017. FINDINGS: Alignment of the total left knee arthroplasty is anatomic. There is no periprosthetic fracture or unexpected radiopaque foreign body. Skin rosi are present. IMPRESSION: Expected findings following total left knee arthroplasty. Electronically signed by: Cruz Haider M.D. 08/29/2017 11:13 AM Dictated Date/Time: 08/29/2017 11:12 AM
--- NOTE | 2017-08-29 11:16 | Anesthesiology Progress Note ---
Anesthesia Post Op Note Date & Time Aug 29, 2017 at 11:16 Vital Signs Pain Intensity: 0 Vital Signs Past 12 Hours Date Time Temp Pulse Resp B/P (MAP) Pulse Ox O2 Delivery O2 Flow Rate FiO2 08/29/17 11:10 54 13 147/74 93 Nasal Cannula 2 08/29/17 11:00 36.5 67 15 141/69 98 Nasal Cannula 2 08/29/17 10:50 76 14 129/99 99 Oxymask 10 08/29/17 10:40 68 18 143/72 100 Oxymask 10 08/29/17 10:34 36.4 86 18 148/75 98 Oxymask 10 08/29/17 06:58 36.6 62 18 136/73 96 Room Air Notes Mental Status: alert / awake / arousable, participated in evaluation Pt Amnestic to Procedure: Yes Nausea / Vomiting: adequately controlled Pain: adequately controlled Airway Patency, RR, SpO2: stable & adequate BP & HR: stable & adequate Hydration State: stable & adequate Anesthetic Complications: no major complications apparent
[2017-08-29] MEDS ORDERED: MoRPHine SULFATE 4 MG/ML 1 ML CARP\\VIAL IV PRN (13:00)
[2017-08-29] MEDS ORDERED: D5W AND 1/2NSS + 20MEQ KCL 1,000 ML IV SCH (13:00)
--- NOTE | 2017-08-29 13:00 | [facility] Operative Report ---
Operative Report Operative Date Aug 29, 2017. Pre-Operative Diagnosis Left Knee End-Stage Degenerative Joint Disease Post-Operative Diagnosis Left Knee End-Stage Degenerative Joint Disease Procedure(s) Performed Left Total Knee Arthroplasty Surgeon Dr. Hayes Supervisor Doping Surgeon(s) DIONNE Whitley Estimated Blood Loss 75 ml Findings Left knee DJD Fluids 1200cc Specimens A. Left Knee Bone and Tissue Drains none Anesthesia GET/block Complication(s) None Disposition Recovery Room / PACU Indications This 77-year-old -[place] female presented the office with complaints of persisting left knee pain. She had tried conservative care measures including activity modification, oral anti-inflammatories, and use of a walker. These were unsuccessful. She elected to proceed with surgical intervention in hopes of alleviating her pain. She previously had a right total knee arthroplasty and did well with that. Preoperative imaging was obtained. Description of Procedure Patient was taken to the operating room and was administered a general anesthetic.. She was prepped and draped in usual sterile fashion. Please see Dr. Hayes's operative report for specifics of the procedure. I was present for the entire case from initial patient positioning through final wound closure. Assistance was provided in tissue traction, hemostasis, trial implant placement, final implant placement, and final wound closure. Patient was taken to the recovery room in satisfactory condition. I attest to the content of the Intraoperative Record and any orders documented therein. Any exceptions are noted below.
--- NOTE | 2017-08-29 13:19 | Progress Note ---
Progress Note Date of Service Aug 29, 2017. Progress Note Postop check: She is doing well denies nausea vomiting chest pain shortness breath fever chills. She is eating her lunch. She has no pain. Vital signs are stable she's afebrile. Neurovascular check is normal both lower extremities. Postop x-rays of the left knee reveal excellent implant positioning. Assessment: Doing well postop left total knee replacement. Coumadin this evening per nomogram ;Hep-Lock IV. Dictated not read.
[2017-08-29] MEDS ORDERED: OXYC-57 PO ×2 (13:34)
[2017-08-29] MEDS ORDERED: WARF2TAB PO ×2 (13:34)
[2017-08-29] MEDS ORDERED: INFLUENZA ADMINISTRATION CHARGE ONE (13:45)
[2017-08-29] MEDS ORDERED: INFLUENZA VACCINE HIGH DOSE 65+ 0.5 ML SYR IM. ONE (13:45)
[2017-08-29] MEDS: KETOROLAC TROMETHAMINE 15 MG/ML VIAL IV. SCH ×2 (14:16→19:40)
[2017-08-29] MEDS ORDERED: WARFARIN SOD 5 MG TAB PO SCH (16:00)
[2017-08-29] MEDS ORDERED: TRANEXAMIC ACID INJ 1,000 MG in SODIUM CHLORIDE 0.9% 100ML 100 ML IV SCH (16:30)
[2017-08-29] MEDS: FERROUS GLUCONATE 324 MG TAB PO SCH (18:28)
[2017-08-29] MEDS: DOCUSATE SODIUM 100 MG CAP PO SCH (21:15)
[2017-08-30] MEDS: KETOROLAC TROMETHAMINE 15 MG/ML VIAL IV. SCH ×2 (01:27→08:48)
[2017-08-30 03:24] VITALS: BP 125/73; PULSE 56; TEMP 36.8; O2SAT 94
[2017-08-30 06:47] LABS: HEMATOCRIT 35.8 % (37-47); HEMOGLOBIN 11.7 g/dL (12.0-16.0); MEAN CELL VOLUME 85.6 fL (80-100); MEAN CORPUSCULAR HGB CONC 32.7 g/dl (32-36); MEAN PLATELET VOLUME 11.3 fL (7.4-10.4); PLATELET COUNT 218 K/uL (130-400); RED CELL DISTRIBUTION WIDTH CV 15.1 % (11.5-14.5); RED CELL DISTRIBUTION WIDTH SD 47.3 fL (36.4-46.3); WHITE BLOOD COUNT 12.14 K/uL (4.8-10.8)
--- NOTE | 2017-08-30 07:06 | PROGRESS NOTE ---
DATE: 08/30/2017 SUBJECTIVE: Postop day #1 status post left total knee replacement. The patient was up ambulating already in the bathroom. She is moving well. She is lifting her leg nicely. She denies chest pain, shortness of breath, fever, chills, nausea, vomiting or headache. OBJECTIVE: VITAL SIGNS: Stable. She is afebrile. LABORATORY DATA: Hematocrit is stable in the mid 30s. INR is pending. Calves nontender. ASSESSMENT: Doing well status post left total knee replacement. Discharge later today. INR if it is 1.5 or less, discharge on 4 mg a day. If it is greater than 1.5, discharge on 2 mg. Check on Sunday. Follow up in 2 weeks for staple removal.
--- NOTE | 2017-08-30 07:11 | DISCHARGE SUMMARY ---
CHIEF COMPLAINT: Left knee pain. HISTORY OF PRESENT ILLNESS: Underwent elective left total knee replacement. Hospital course has been uneventful. PAST MEDICAL HISTORY: Remarkable for heart murmur, hypertension, sleep apnea, CPAP, osteoarthritis, chronic back pain, GERD, hiatal hernia, varicose veins, diverticulitis, osteopenia and obesity. PAST SURGICAL HISTORY: Include sigmoidectomy, laparoscopy, colonoscopies, total hip replacement in 2016, total knee replacement in 2017, wrist surgery. FAMILY HISTORY: Remarkable for Alzheimer's disease, breast cancer, colon cancer, kidney disease. ALLERGIES: None. PREADMISSION MEDICATIONS: Include baby aspirin, chlorthalidone, glucosamine, amoxicillin prior to dental procedures. Will discharge on Coumadin. Keep INR 1.8-2.2. If INR is 1.5 or less, discharge on 4 mg. If it is greater than 1.5, discharge on 2 mg. Check INR on Sunday. P.r.n. Percocet or Vicodin per PA. REVIEW OF SYSTEMS: Noncontributory. ASSESSMENT AND PLAN: Doing well status post left total knee replacement. We will discharge after PT, OT and social service assessment today. Coumadin orders as noted.
[2017-08-30 07:18] VITALS: BP 126/74; PULSE 70; TEMP 36.3; O2SAT 96
[2017-08-30 07:19] LABS: CALCIUM 8.7 mg/dl (8.5-10.1); CREATININE 1.08 mg/dl (0.60-1.20); POTASSIUM 3.9 mmol/L (3.5-5.1)
[2017-08-30] MEDS ORDERED: DEXAMETHASONE INJ 10 MG in SYRINGE 0 ML IV ONE (07:30)
[2017-08-30] MEDS: DOCUSATE SODIUM 100 MG CAP PO SCH (08:46)
[2017-08-30] MEDS: FERROUS GLUCONATE 324 MG TAB PO SCH ×2 (08:46→12:30)
[2017-08-30] MEDS: OXYCODONE HCL IR 5 MG TAB (IMMEDIATE RELEASE) PO PRN ×2 (08:49→13:44)
[2017-08-30] MEDS ORDERED: CHLORTHALIDONE 25 MG TAB PO SCH (09:00)
[2017-08-30] MEDS ORDERED: MULTIVITAMIN TAB PO SCH (09:00)
[2017-08-30] MEDS ORDERED: PANTOprazole SOD 40 MG TAB PO SCH (09:00)
[2017-08-30] MEDS ORDERED: ASPIRIN 81 MG ECTAB PO SCH (09:00)
[2017-08-30] MEDS ORDERED: NURSING VERBAL MED ORDER ONE (10:00)
[2017-08-30 10:31] VITALS: BP 126/74
--- NOTE | 2017-08-30 11:08 | Orthopedic Progress Note ---
Orthopedic Progress Note Date of Service Aug 30, 2017. Subjective Post OP Day: 1 Reports: feeling well, pain controlled w PO medications, Denies: complaints, chest pain, SOB, nausea / vomiting, light headedness, calf pain Additional Notes: states she was out of bed last night, feels ready to go home. Objective calves soft nontender, N/V intact, capillary refill less than 2 sec., dressing C /D/I, incision C/D/I, A&O x3, toes mobile, CMS intact scant drainage on dressings, no active drainage. Able to do a SLR. Date Time Temp Pulse Resp B/P (MAP) Pulse Ox O2 Delivery O2 Flow Rate FiO2 08/30/17 10:11 36.3 70 18 96 Room Air 08/30/17 07:20 Room Air 08/30/17 07:18 36.3 70 18 126/74 (91) 96 Room Air 08/30/17 03:24 36.8 56 15 125/73 (90) 94 Room Air 08/29/17 23:20 36.5 61 16 127/76 (93) 91 Room Air 08/29/17 19:30 36.3 59 18 139/77 (97) 93 Room Air 08/29/17 19:20 Room Air 08/29/17 15:15 36.3 69 18 126/73 (90) 97 Nasal Cannula 2.0 08/29/17 14:00 36.4 71 16 123/66 (85) 95 Nasal Cannula 2.0 08/29/17 13:00 36.4 57 16 136/75 (95) 91 Room Air 08/29/17 12:30 36.4 60 14 116/70 (85) 95 Nasal Cannula 2.0 08/29/17 12:00 93 Nasal Cannula 2.0 08/29/17 12:00 93 Nasal Cannula 2.0 08/29/17 12:00 36.5 58 16 138/69 (92) 93 Nasal Cannula 2.0 08/29/17 11:45 59 20 141/70 96 Nasal Cannula 2 08/29/17 11:30 51 12 134/71 94 Nasal Cannula 2 08/29/17 11:15 58 12 140/72 97 Nasal Cannula 2 08/29/17 11:10 54 13 147/74 93 Nasal Cannula 2 Laboratory Results 24 Hours: Test 08/30/17 06:22 Hematocrit 35.8 % Hemoglobin 11.7 g/dL Prothromb Time International Ratio 1.0 Prothrombin Time 10.3 SECONDS Assessment & Plan Assessment: Left knee post op day 1 total knee arthroplasty Plan: PT/OT today coumadin per nomogram follow up in the office in 2 weeks for staple removal dressing changed this morning, wound looks very good D/C to home today with home health Discharge Planning Discharge Planning: home with home health Pain Management: Percocet DVT Prophylaxis: TEDs, SCDs, Coumadin Therapy: Physical Therapy
--- NOTE | 2017-08-30 11:10 | Discharge Instructions ---
Discharge Instructions Date of Service Aug 29, 2017. Admission Reason for Admission: Left Knee Degerative Joint Disease Discharge Discharge Diagnosis / Problem: left knee s/p total knee replacement Discharge Goals Goal(s): Decrease discomfort, Improve function, Increase independence Activity Recommendations Activity Limitations: as noted below Lifting Limitations: gradually increase as tolerated Exercise/Sports Limitations: until after follow-up appointment Shower/Bathe: keep incision dry Driving or Machine Use: No driving until cleared by Dr. Hayes Weightbearing Status: Left weightbearing (as tolerated) . Instructions / Follow-Up Instructions / Follow-Up New Medicine: * You will likely be taking one or more of these medications: 1. Percocet - Take, as directed, when you need it, every four to six hours to control your pain. 2. Coumadin - Thins your blood to lessen the chance of forming a blood clot. The dose of this is different for each person and is based on your blood tests that are done twice a week. * The most common side effects of pain medicine and iron are nausea and constipation. If nausea or constipation is too much of a problem or if you have any questions about your new medicines or doses, call [facility] at . We will try to help you manage these issues. VERY IMPORTANT TO READ AND REVIEW" Blood Clots and Blood Thinning Medicine: * You are given Coumadin during the immediate post-operative period to lessen the risk of blood clots forming in your legs and/or lungs. Coumadin is usually given for six weeks after surgery. * The prescription is for 2 mg tablets. At discharge, you should understand your dose and take it all at the same time every day, preferably after dinner. * You need to get your blood checked 1 - 2 times per week for six weeks or as directed. * If your dose needs to change, we will call you. Do not take your medication on the day of the blood test until we call you. Pain: * The immediate post-operative period after knee replacement surgery is often quite painful. * You are given a prescription for pain medicine. You should take it, as directed, when you need it, especially before physical therapy and before going to bed. Pain that interferes with sleep is very common and can last several months. * You will likely need pain medicine for the first four to six weeks. It will not stop all of the pain. The pain will lessen and as you feel better, you may change to milder pain medicine such as Tylenol. * The most common side effects of pain medicine are nausea and constipation, so don't take more than you need. Physical Therapy: * You will have physical therapy two or three times each week for four to six weeks after your surgery in order to regain your knee range of motion and to retrain your knee to work properly. * It is just as important to make sure you are getting your knee perfectly straight as it is to regain your knee bend. * Taking a pain pill an hour before therapy can help you have a more productive and comfortable therapy session if needed. Home Exercise: * You were shown a series of exercises (heel props, heel slides, etc.) in the hospital. Do these exercises three to four times each day including the exercises you were shown in physical therapy. Walking: * Get up and walk several times each day. For the first four weeks, try not to stand or walk for more than one hour at a time. If you do stand or walk for more than one hour, you will not hurt anything, but your knee and leg will likely swell. * As you feel comfortable, you may change from the walker or crutches to a cane and then to independent walking. SELF CARE INSTRUCTIONS AFTER TOTAL KNEE REPLACEMENT A. You may need to continue a physical therapy program after discharge from the hospital. There are several options available to you. Your doctor will assist you in selecting the best one for you. 1. An out-patient facility 2 to 3 times a week for therapy or home therapy. 2. Continue working on all exercises taught to you in the hospital. Your goals should be to increase bending of your knee to 90 degrees and beyond and to fully straighten your knee. B. You may progress at your own pace from walking with a walker or crutches to a cane; then to no assistive devices. C. Make walking a part of your daily routine. Be up as much as comfortable with rest periods throughout the day. Rest with leg elevation is very important. Use the ice wrap frequently for the first 3-4 weeks. D. There are no restrictions on activities. You may ride in a car, shop, participate in director of math and all social activities. E. Wear the long elastic stockings (JEN hose) 20 hours a day for six weeks after surgery. They can be removed several times a day for laundering and for a shower. F. Do not place a pillow behind your knee when resting. A pillow at your ankle is okay. VERY IMPORTANT TO READ AND REVIEW A. Take Coumadin, Aspirin or Lovenox (blood thinning medications) as directed by your doctor. If on Coumadin, have a pro-time (blood test) drawn according to your doctor's instructions. This will tell the doctor how well the Coumadin is thinning your blood. 1. YOU WILL BE GIVEN AN ORDER AT DISCHARGE FOR PT/INR (BLOOD WORK). PLEASE HAVE THIS DONE INSTRUCTED. PLEASE CALL OUR OFFICE AFTER YOUR BLOODWORK IS COMPLETE SO WE CAN TRACK YOUR RESULTS. IF YOU ARE GOING TO OUTPATIENT PHYSICAL THERAPY, YOU WILL NEED TO GO TO OUTPATIENT TESTING TO HAVE IT DRAWN. B. There are a few signs you need to watch for after you are home. Call [facility] if you notice any of the followin. Increased severe knee pain. Some pain is expected especially when you exercise. 2. Increased swelling in your leg or knee; pain or swelling of the calf muscle in either lower leg. 3. Any fluid drainage from the incision. 4. Shortness of breath or chest pain. C. Please call [facility] at if you have any concerns or questions about your operation or recovery. The doctor or his nurse will return your call promptly. D. You must take antibiotics before dental work, bladder, bowel or other surgery. Call the office to obtain a prescription at least 2 days prior to your appointment. * CALL IF INCREASED PAIN, REDNESS, DRAINAGE OR FEVER GREATER THAT 101. * Sutures should be removed 12-14 days after surgery unless you are on chronic steriods, then it will be 14-18 days after surgery. Call your doctor if: * Temperature above 101 degrees F. * Pain not relieved by pain medicine ordered. * Increased drainage or redness from incision. * Notify your doctor with any questions or concerns. Current Hospital Diet Patient's current hospital diet: Regular Diet Discharge Diet Recommended Diet: Regular Diet Procedures Procedures Performed: Left Total Knee Arthroplasty Pending Studies Studies pending at discharge: no Medical Emergencies . Who to Call and When: Medical Emergencies: If at any time you feel your situation is an emergency, please call 911 immediately. . Non-Emergent Contact Non-Emergency issues call your: Primary Care Provider, Surgeon Call Non-Emergent contact if: temperature is above 101, wound has increased drainage, wound has increased redness, wound has increased pain, you have any medication questions . "Provider Documentation" section prepared by Danish Angeles PA-C. . VTE Core Measure Inpt VTE Proph given/why not?: Warfarin (Coumadin), T.E.DMarija Stockings, SCD's [place] Drug Monitoring Program Search Results: no issues identified
[2017-08-30 12:16] VITALS: BP 126/76; PULSE 57; TEMP 37; O2SAT 95
[2017-08-30] MEDS ORDERED: WARFARIN SOD 5 MG TAB PO SCH (16:00)
== END 2017-08-30 14:36 | disposition home health service (06) | DRG 470 ==
LOC: C.ACU 06:21 → C.MSN 06:30 → ENRESERV 11:26
PROVIDERS: ADMIT Physical Medicine & Rehabilitation Sports Medicine; ATTEND Physical Medicine & Rehabilitation Sports Medicine
PROC: 0SRD0J9 Replacement of Left Knee Joint with Synthetic Substitute, Cemented, Open Approach (ICD-10-PCS; principal; 2017-08-29 09:00)
DX: M17.12 Unilateral primary osteoarthritis, left knee (principal); M21.162 Varus deformity, not elsewhere classified, left knee; M21.262 Flexion deformity, left knee; I10 Essential (primary) hypertension; M85.80 Other specified disorders of bone density and structure, unspecified site; G47.33 Obstructive sleep apnea (adult) (pediatric); E66.9 Obesity, unspecified; Z68.35 Body mass index [BMI] 35.0-35.9, adult; Z23 Encounter for immunization; Z99.89 Dependence on other enabling machines and devices; Z96.651 Presence of right artificial knee joint; Z96.641 Presence of right artificial hip joint; Z79.1 Long term (current) use of non-steroidal anti-inflammatories (NSAID); Z79.82 Long term (current) use of aspirin; Z79.899 Other long term (current) drug therapy

== ENCOUNTER → 2017-08-31 | Outpatient (CLI) | payer BC, OTHER ==
[~2017-08-31] MED LIST changes: -CEFAZOLIN 2000MG IV PUSH 10 ML IV SCH; -LACTATED RINGER'S 1000ML 1,000 ML IV SCH; -LACTATED RINGER'S 1000ML 500 ML IV SCH; -LACTATED RINGER'S 1000ML IV SCH; +OXYC-57 PO; -ROPIVACAINE 5MG/ML 30 ML 150 MG, BUPIVACAINE/EPINEPHR 0.5% MPF 30 ML, KETOROLAC TROMETH... INFIL SCH; -TRANEXAMIC ACID INJ 1,000 MG in SYRINGE 0 ML IV SCH; +WARF2TAB PO
== END | disposition home or self-care (01) ==
LOC: C.LABSPEC 15:11
PROVIDERS: ATTEND Physical Medicine & Rehabilitation Sports Medicine
DX: Z51.81 Encounter for therapeutic drug level monitoring (principal); Z79.01 Long term (current) use of anticoagulants

== ENCOUNTER → 2017-09-04 | Outpatient (CLI) | payer BC ==
[~2017-09-04] MED LIST changes: -GLUCTAB7 PO; -NAPR1TAB9 PO
== END | disposition home or self-care (01) ==
LOC: C.LABSPEC 12:53
PROVIDERS: ATTEND Physical Medicine & Rehabilitation Sports Medicine
DX: Z01.89 Encounter for other specified special examinations (principal)

== ENCOUNTER → 2017-09-07 | Outpatient (CLI) | payer BC ==
[2017-09-07 13:58] LABS: INR 1.7 (0.9-1.1)
--- NOTE | 2017-09-10 15:54 | CODING QUERY NO DIAGNOSIS ---
Valid Physician Order Needed 42 A valid physician order must be submitted in order to properly bill for the service(s) provided, including date of service(s), valid diagnosis, and physician signature. If these tests are done on a recurring basis the original physician order must be submitted in order to code and bill for the service(s) provided. Please fax us the original, signed physician order so that we may expedite billing to [phone] DOS 09/07/17 * PROTHROMBIN TIME Thank you [facility] Information Management
== END | disposition home or self-care (01) ==
LOC: C.LABSPEC 13:13
PROVIDERS: ATTEND Physical Medicine & Rehabilitation Sports Medicine
DX: Z01.89 Encounter for other specified special examinations (principal)

== ENCOUNTER → 2017-09-10 | Outpatient (CLI) | payer BC ==
[2017-09-10 14:08] LABS: INR 2.7 (0.9-1.1)
== END | disposition home or self-care (01) ==
LOC: C.LABSPEC 13:36
PROVIDERS: ATTEND Physical Medicine & Rehabilitation Sports Medicine
DX: Z01.89 Encounter for other specified special examinations (principal)

== ENCOUNTER → 2017-09-14 | Outpatient (CLI) | payer BC ==
[2017-09-14 13:58] LABS: INR 2.4 (0.9-1.1)
--- NOTE | 2017-09-19 11:47 | CODING QUERY MEDICAL NECESSITY ---
CQSUPPORTING DIAGNOSIS NEEDED A supporting diagnosis is required for the test/procedure performed on this patient in order for us to be reimbursed by the patient's insurance. Please provide a supporting diagnosis for the following test/procedure listed below next to the test name along with your signature. *If there is no additional diagnosis for this patient that would support the following test/procedure please document that below next to the test/procedure. Test(s)/Procedure(s) that require a supporting diagnosis: * (Stencil Machine Operator insert test name) DIAGNOSIS: DOS 09/14/17 PROTHROMBIN TIME/ INR TEST NO DIAGNOSIS WAS ON ORDER ATTENTION: ENOCH Provider Signature: Date: Thank you Britt M[facility] Information Management Once completed, please kindly fax back to [phone] For questions please call [phone]
== END | disposition home or self-care (01) ==
LOC: C.LABSPEC 13:07
PROVIDERS: ATTEND Physical Medicine & Rehabilitation Sports Medicine
DX: Z86.718 Personal history of other venous thrombosis and embolism (principal)

== ENCOUNTER → 2017-10-15 | Outpatient (CLI) | payer BC | END | disposition home or self-care (01) | LOC: C.RDSM 17:04 | PROVIDERS: ATTEND Physical Medicine & Rehabilitation Sports Medicine | DX: Z96.659 Presence of unspecified artificial knee joint (principal) ==

== ENCOUNTER 2019-02-23 21:09 | Observation (INO) ==
--- OUTSIDE RECORDS SUMMARY | 2019-02-23 21:12 | External Medical Summary | Continuity of Care Document ---
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 Refills: 0 Aleve 220 MG Oral Capsule; TAKE 2 CAPUSLES DAILY. Refills: 0 Vitamin B-12 1000 MCG Oral Tablet; TAKE 1 TABLET DAILY DI RECTED. Refills: 0 Chlorthalidone 25 MG Oral Tablet; TAKE 1 TABLET DAILY. Start: 02-Dec-2014 Refills: 0 Aspirin 81 MG TABS; TAKE 1 TABLET DAILY. Refills: 0 Procedures History of Tubal Ligation Status: Comple pattie History of Hysteroscopy With Resection For Intrauterine Poly p Status: Completed Removal History of Closure Of Enterovesical Fistula With Intestinal Status: Completed Resection Immunizations Immunizations not documented Family History Grandmother Family history of malignant neoplasm of breast (V16.3) (Z80. 3) Status: Active Unknown Family Member Family history of ovarian cancer (V16.41) Status: Active Comments: Family History (Z80.41) Mother Family history of colon cancer (V16.0) (Z80.0) Status: Activ e Social History - Smoking Status Never smoker Interventions Labs/Procedures/ImagingIn-House EKG (Epiphany) Total Component; Done: 28 Feb 2017Discussion/SummaryPatient is a 76-year-old female with a history of sinus bradycardia, hypertension, and LVH with diastolic dysfunction who presents to the clinic for a pre-operative cardiovascular examination prior to right total knee arthroplasty on 03/21/[address] Hayes. The patient is currently stable and asymptomatic from a cardiovascular standpoint. She denies anginal symptoms. She has no evidence of congestive heart failure, concerning arrhythmia, or significant valvular heart disease. She underwent a dobutamine stress echocardiogram in May 2016, which was negative for myocardial ischemia. Her resting LV systolic function was normal at that time. Her EKG tod ay is unremarkable with no significant changes compared to a prior EKG in October 2014.Given this information, the patient is at an acceptable risk to proceed with upcoming surgery without any additional cardiovascular testing or intervention. She may hold her Aspirin if necessary. Thank you for allowing us to see this patient in consultation. Patient to return as needed. Call with any problems, questions, or change in clinical status. Patient understood and agrees with the plan. Plan of Treatment Planned Observations Planned Goals not documented Results No Known Results Results not documented Encounters Appointment; Anjelica Cordero PA-C 28-Feb-2017 10:15 Encounter Diagnosis: Problem not documented
[2019-02-23] MEDS ORDERED: SODIUM CHLORIDE 0.9% 1000ML 1,000 ML IV SCH (22:00)
[2019-02-23 22:18] LABS: Basophils # (auto) 0.03 K/uL (0-0.2); Basophils % (auto) 0.5 %; Eosinophils % (auto) 6.4 %; Hematocrit (blood only) 43.3 % (37-47); Hemoglobin 14.3 g/dL (12.0-16.0); Immature Granulocytes # (auto) 0.01 K/uL (0.00-0.02); Immature Granulocytes % (auto) 0.2 %; Lymphocytes # (auto) 2.41 K/uL (1.2-3.4); Lymphocytes % (auto) 38.7 %; Mean Corpuscular Volume 89.5 fL (80-100); Mean Platelet Volume 11.5 fL (7.4-10.4); Monocytes # (auto) 0.35 K/uL (0.11-0.59); Monocytes % (auto) 5.6 %; Neutrophils # (auto) 3.03 K/uL (1.4-6.5); Neutrophils % (auto) 48.6 %; Platelet Count 225 K/uL (130-400); RDW Coefficient of Variation 14.2 % (11.5-14.5); RDW Standard Deviation 46.6 fL (36.4-46.3); Red Blood Count 4.84 M/uL (4.2-5.4); White Blood Count 6.23 K/uL (4.8-10.8)
[2019-02-23 22:29] LABS: Partial Thromboplastin Ratio 0.8; Partial Thromboplastin Time 22.9 Seconds (21.0-31.0); Prothrombin Time 9.8 Seconds (9.0-12.0)
[2019-02-23 22:38] LABS: Albumin Level 3.8 gm/dl (3.4-5.0); BUN Creatinine Ratio 18.9 (10-20); Blood Urea Nitrogen 23 mg/dl (7-18); Calcium 9.4 mg/dl (8.5-10.1); Carbon Dioxide 29 mmol/L (21-32); Chloride 105 mmol/L (98-107); Creatinine Clr Calc Pharmacy 46.4 ml/min; Est GFR (African American) 49.8; Glucose 121 mg/dl (70-99); Potassium 3.3 mmol/L (3.5-5.1); Sodium 141 mmol/L (136-145)
[2019-02-23 22:39] LABS: Alanine Aminotransferase 28 U/L (12-78); Alkaline Phosphatase 94 U/L (45-117); Aspartate Aminotransferase 19 U/L (15-37); Bilirubin,Total 0.3 mg/dl (0.2-1); Globulin 3.8 gm/dl (2.5-4.0); Total Protein 7.6 gm/dl (6.4-8.2); Troponin I < 0.015 ng/ml (0-0.045)
[2019-02-23] MEDS ORDERED: IOVERSOL 100ml IV PRN (23:16)
--- NOTE | 2019-02-24 01:10 | History & Physical Report ---
Date of Service February 24, 2019 Assessment & Plan (1) GI bleed: 78-year-old female here for bright red blood per rectum, painless, concerning for GI bleed upper versus lower, additional loss of approximately 1.5 cups of blood per rectum since arrival to the ED. Plan -Type and screen, hold 2 units. -Presents with normal hemoglobin of 14 -continue to monitor with serial H&H every 6 hours. -Monitor vitals -Fluids -PPI twice daily -Consult gastroenterology, consider upper and lower endoscopy given NSAID use and history of reflux inpatient versus outpatient follow-up. -Hold aspirin and NSAIDs. For pain Tylenol PRN although patient is not in any pain at this time. FEN/GI: Normal saline at 140, n.p.o. DVT ppx: Chemical prophylaxis contraindicated in setting of GI bleed CODE STATUS: Full as discussed with patient DISPO: Med telemetry Other ongoing medical problems: Hypertension: continue chlorthalidone. (2) Elevated BUN: History of Present Illness Chief Complaint: Bright red blood per rectum Primary Care Provider: Solis Burden DO This is a 78-year-old female who presents with bright red blood per rectum when she went to the bathroom earlier today. Patient states she has had several bouts of painless rectal bleeding, described as bright red blood with some clots earlier this evening prior to admission. States she had a normal bowel movement this morning that was nonbloody. And then later in the day began to experience increased flatulence. She states she has not had any abdominal pain associated with this or fevers, but does state that she has a history of reflux disease but no known ulcerative disease. She does take 1 Aleve per day. She also takes a baby aspirin for general prevention but has no cardiac history. Had a colonoscopy several years ago and told to return in 5 years. Has not had an upper endoscopy. Endorses some lightheadedness. Denies history of anemia. Denies syncope or falls or chest pain or difficulty breathing. Denies abdominal pain. Denies dysuria. Past medical history includes degenerative joint disease, diverticulosis, colovesicular fistula. Past surgical history includes joint replacements and colovesicular fistula repair about 4 years ago. ED course: Per report patient did lose another cup and a half of blood per rectum. IV fluids. Allergies Allergy/AdvReac Type Severity Reaction Status Date / Time No Known Allergies Allergy NONE Verified 02/23/19 21:55 Home Medications Home Medications Medication Instructions Recorded Confirmed Type aspirin [Aspir-81] 81 mg PO DAILY 02/23/19 02/23/19 History chlorthalidone 25 mg PO DAILY 02/23/19 02/23/19 History glucosamine bryant 2KCl-chondroit 2 tab PO DAILY 02/23/19 02/23/19 History [Glucosamine-Chondroitin 3X Str] naproxen sodium [Aleve] 220 mg PO DAILY 02/23/19 02/23/19 History turmeric 400 mg PO DAILY 02/23/19 02/23/19 History Past Med/Surg History Medical History DJD (degenerative joint disease) of hip Left knee DJD Right knee DJD Surgical History [place]-vesical fistula No pertinent past surgical history Family History Other Family history non-contributory Social History Preferred Language: Turkish Communication Ability: Effective Pest Controller Required: No Beliefs That Will Affect Care: None Current Living Situation: Spouse Other Information That Helps Us Care for You: No Feels Safe at Home: Yes Safety Concerns: Feels Safe At This Time Smoking Status: Never smoker Do You Dip or Chew Tobacco: No Second Hand Exposure: No Tobacco Cessation Education Requested by Patient: No Hx Alcohol Use: Yes Hx Substance Use: No Review of Systems Review of Systems: All systems reviewed & are unremarkable except as noted in HPI & below Physical Exam Physical Exam: Vitals noted and within normal limits with the exception of hypertension. GENERAL: Awake, alert to person, place, and time, nontoxic-appearing, in no di stress. HENT: Normocephalic, atraumatic. Mucus membranes appear moist. EYES: Normal conjunctiva. Sclera non-icteric. EOMI. NECK: Supple. Full range of motion. No JVD. RESPIRATORY: Clear to auscultation. Normal work of breathing. CARDIAC: Regular rate, normal rhythm. Extremities warm and well perfused, 2+ radial pulses bilaterally; 2+ posterior tibialis pulses bilateral. ABDOMEN: Soft, non-distended. No tenderness to palpation in all four quadrants. No rebound or guarding. No masses. Bowel sounds are normal. LOWER EXTREMITIES: Inspection of calves reveal equal size bilaterally. They are non-tender. No edema. No discoloration. NEURO: No gross focal motor deficits noted. Sensation in tact. CN II-XII grossly in tact. . SKIN: Rash not present. No jaundice noted. Significant lesions not present. PSYCH: Appropriate mood and affect. Cooperative. Exam as done by Marisela Ortiz MD, Repair Supervisor. Results & Data Vital Signs (Past 12 Hours) Vital Signs Temp Pulse Resp BP Pulse Ox 02/23/19 21:12 36.7 C 73 16 146/81 H 96 Laboratory Results 02/23/19 02/23/19 02/23/19 Range/Units 22:15 21:48 21:48 WBC (4.8-10.8) K/uL RBC (4.2-5.4) M/uL Hgb (12.0-16.0) g/dL Hct (37-47) % MCV (80-100) fL MCH (25-34) pg MCHC (32-36) g/dL RDW Std Deviation (36.4-46.3) fL RDW Coeff of Tata (11.5-14.5) % Plt Count (130-400) K/uL MPV (7.4-10.4) fL Immature Gran % (Auto) % Neut % (Auto) % Lymph % (Auto) % Antelope % (Auto) % Eos % (Auto) % Baso % (Auto) % Immature Gran # (Auto) (0.00-0.02) K/uL Neut # (Auto) (1.4-6.5) K/uL Lymph # (Auto) (1.2-3.4) K/uL Antelope # (Auto) (0.11-0.59) K/uL Eos # (Auto) (0-0.5) K/uL Baso # (Auto) (0-0.2) K/uL PT 9.8 (9.0-12.0) Seconds INR 1.0 (0.9-1.1) APTT 22.9 (21.0-31.0) Seconds PTT Ratio 0.8 Sodium 141 (136-145) mmol/L Potassium 3.3 L (3.5-5.1) mmol/L Chloride 105 (98-107) mmol/L Carbon Dioxide 29 (21-32) mmol/L Anion Gap 6.0 (3-11) BUN 23 H (7-18) mg/dl Creatinine 1.22 H (0.6-1.2) mg/dl Est Cr Clr Drug Dosing 46.4 ml/min Est GFR ( Amer) 49.8 Est GFR (Non-Af Amer) 43.0 BUN/Creatinine Ratio 18.9 (10-20) Glucose 121 H (70-99) mg/dl Calcium 9.4 (8.5-10.1) mg/dl Total Bilirubin 0.3 (0.2-1) mg/dl AST 19 (15-37) U/L ALT 28 (12-78) U/L Alkaline Phosphatase 94 (45-117) U/L Troponin I < 0.015 (0-0.045) ng/ml Total Protein 7.6 (6.4-8.2) gm/dl Albumin 3.8 (3.4-5.0) gm/dl Globulin 3.8 (2.5-4.0) gm/dl Albumin/Globulin Ratio 1.0 (0.9-2) Specimen Hemolysis Blood Type B Positive Antibody Screen NEGATIVE 02/23/19 Range/Units 21:48 WBC 6.23 (4.8-10.8) K/uL RBC 4.84 (4.2-5.4) M/uL Hgb 14.3 (12.0-16.0) g/dL Hct 43.3 (37-47) % MCV 89.5 (80-100) fL MCH 29.5 (25-34) pg MCHC 33.0 (32-36) g/dL RDW Std Deviation 46.6 H (36.4-46.3) fL RDW Coeff of Tata 14.2 (11.5-14.5) % Plt Count 225 (130-400) K/uL MPV 11.5 H (7.4-10.4) fL Immature Gran % (Auto) 0.2 % Neut % (Auto) 48.6 % Lymph % (Auto) 38.7 % Antelope % (Auto) 5.6 % Eos % (Auto) 6.4 % Baso % (Auto) 0.5 % Immature Gran # (Auto) 0.01 (0.00-0.02) K/uL Neut # (Auto) 3.03 (1.4-6.5) K/uL Lymph # (Auto) 2.41 (1.2-3.4) K/uL Antelope # (Auto) 0.35 (0.11-0.59) K/uL Eos # (Auto) 0.40 (0-0.5) K/uL Baso # (Auto) 0.03 (0-0.2) K/uL PT (9.0-12.0) Seconds INR (0.9-1.1) APTT (21.0-31.0) Seconds PTT Ratio Sodium (136-145) mmol/L Potassium (3.5-5.1) mmol/L Chloride (98-107) mmol/L Carbon Dioxide (21-32) mmol/L Anion Gap (3-11) BUN (7-18) mg/dl Creatinine (0.6-1.2) mg/dl Est Cr Clr Drug Dosing ml/min Est GFR ( Amer) Est GFR (Non-Af Amer) BUN/Creatinine Ratio (10-20) Glucose (70-99) mg/dl Calcium (8.5-10.1) mg/dl Total Bilirubin (0.2-1) mg/dl AST (15-37) U/L ALT (12-78) U/L Alkaline Phosphatase (45-117) U/L Troponin I (0-0.045) ng/ml Total Protein (6.4-8.2) gm/dl Albumin (3.4-5.0) gm/dl Globulin (2.5-4.0) gm/dl Albumin/Globulin Ratio (0.9-2) Specimen Hemolysis Blood Type Antibody Screen Diagnostic Findings Abdomen pelvis CT shows stool in the colon, final read pending. Supervising Physician Co-Signing Physician Notes Attending addendum: I have physically seen this patient, have supervised the medical residents activities, and agree with the H&P unless as otherwise noted. Assessment and Plan: Rectal bleeding- Patient reports about 1 cup of blood on her second bowel movement of the day that occurred prior to arrival. Hemoglobin 14.3 upon admission. H&H every 6 hours. Admit to monitored bed for close blood pressure monitoring. Hold aspirin and Aleve which she has been taking daily. History of colovesical fistula repair and diverticulosis. Consult gastroenterology. Remainder of orders notations as noted. PG Care Time/CCT Total # of Minutes Spent Total Time Spent with Patient: Total time spent is greater than 50% in coordination of care (as documented) at patient's floor/unit and/or counseling patient: Resident Activity Tracking Resident Involvement: Resident Care Provided Care Provided: Adult Hospital Medicine
--- NOTE | 2019-02-24 01:57 | Emergency Department Note ---
Entered by Eliot Gaona acting as a scribe for Jamie Orellana DO History of Present Illness General Chief complaint: Rectal Bleed Stated complaint: RECTAL BLEEDING Source: patient Limitations: no limitations History of Present Illness Onset (ago): hour(s) (couple hours ) Location: buttocks Pain Consistency: + intermittent Maximum Pain Intensity: 0 Quality: + other (bright red blood) Associated symptoms: + denies other symptoms (black tarry stools, straining, dizziness, ); no nausea/vomiting The patient is a 78 -[place] female w/ PMHx DJD who presents to the ED w/ CC of intermittent rectal bleeding beginning a couple hours ago. The patient states she was cooking when she passed gas. She states she went to the bathroom and noticed blood on her underwear. The patient states she then went to produce a bowel movement and then she checked the toilet bowl and noticed it was full of blood. She denies having black tarry stools previously, straining, dizziness, nausea, vomiting, and taking blood thinners. The patient notes she takes an aspirin. No other exacerbating or remitting factors. 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 and A total of 10 systems reviewed and were otherwise negative Physical Exam Vital Signs Vital Signs - 24 hr 02/23/19 21:12 02/24/19 01:06 02/24/19 01:42 Temperature 36.7 C Temperature Source Oral Sepsis Recent Fever Within 48 Hours No Sepsis New/Unexplained Change in Mental Status No Sepsis Action Taken by Nursing No Action Required Pulse Rate 73 57 L Pulse Rate [Apical] 57 L Respiratory Rate 16 18 16 Respiratory Effort / Characteristics Non-Labored Spontaneous Respiratory Depth Normal Blood Pressure 146/81 H 168/86 H Blood Pressure Mean 102 Pulse Oximetry 96 98 98 Oxygen Delivery Method Room Air Room Air Room Air GENERAL: Sitting up at the edge of the bed. In gown. Talking in full sentences. Large amount of bright red blood in toilet. EYE EXAM: normal conjunctiva OROPHARYNX: no exudate, no erythema, lips, buccal mucosa, and tongue normal and mucous membranes are moist NECK: supple, no nuchal rigidity, no adenopathy, non-tender LUNGS: Clear to auscultation. Normal chest wall mechanics HEART: no murmurs, S1 normal and S2 normal ABDOMEN: abdomen soft, non-tender, normo-active bowel sounds, no masses, no rebound or guarding. BACK: Back is symmetrical on inspection and there is no deformity, no midline tenderness, no CVA tenderness. RECTAL: Dry blood on rectum. SKIN: no rashes and no bruising UPPER EXTREMITIES: upper extremities are grossly normal. LOWER EXTREMITIES: No pitting edema. NEURO EXAM: Normal sensorium, cranial nerves II-XII grossly intact, normal speech, no gross weakness of arms, no gross weakness of legs. Course ED COURSE: Vital signs were reviewed and showed hypertension. The patients medical record was reviewed The above diagnostic studies were performed and reviewed. ED treatments and interventions as stated above. 2142: The patient was evaluated in room C3. A complete history and physical examination was performed. 2203: I reevaluated the patient. She had a large amount of blood in the bathroom. 0011: I discussed the patient's case with Dr. Salgado - [facility]. He will evaluate the patient for further management 0015: Upon reevaluation, the patient is getting admitted. I discussed my findings with the patient and she understands and agrees with the treatment plan. Based on the patients age, coexisting illnesses, exam and lab findings the decision to treat as an inpatient was made. The patient remained stable while under my care. The patient will be evaluated for further management. Administered Medications Sodium Chloride (Nss 1000ml) 1,000 mls @ 100 mls/hr IV .Q10H SAMM Stop: 02/24/19 07:59 Last Admin: 02/23/19 23:04 Dose: 100 mls/hr Documented by: [id number] Ioversol (Optiray 320 100ml) 100 ml IV ONCE PRN PRN Reason: Interaction Checking Stop: 02/27/19 23:15 Last Admin: 02/23/19 23:17 Dose: 93 ml Documented by: [id number] Medical Decision Making Differential Diagnosis Differential diagnosis includes etiologies such as diverticulosis, AVM, co agulopathy, colitis, inflammatory bowel disease, malignancy, Cherise-Minaya tear, esophagitis, peptic ulcer disease, variceal bleed, gastritis, epistaxis, fissure, hemorrhoids, as well as others were entertained. Medical Records Attestation: I reviewed the patient's medical records. Home Medications Current Medication List: was personally reviewed by me Laboratory Data Attestation: I reviewed the patient's lab results. Result diagrams: 02/23/19 21:48 02/23/19 21:48 Lab Results 02/23/19 02/23/19 02/23/19 Range/Units 21:48 21:48 21:48 WBC 6.23 (4.8-10.8) K/uL RBC 4.84 (4.2-5.4) M/uL Hgb 14.3 (12.0-16.0) g/dL Hct 43.3 (37-47) % MCV 89.5 (80-100) fL MCH 29.5 (25-34) pg MCHC 33.0 (32-36) g/dL RDW Std Deviation 46.6 H (36.4-46.3) fL RDW Coeff of Tata 14.2 (11.5-14.5) % Plt Count 225 (130-400) K/uL MPV 11.5 H (7.4-10.4) fL Immature Gran % (Auto) 0.2 % Neut % (Auto) 48.6 % Lymph % (Auto) 38.7 % Allen % (Auto) 5.6 % Eos % (Auto) 6.4 % Baso % (Auto) 0.5 % Immature Gran # (Auto) 0.01 (0.00-0.02) K/uL Neut # (Auto) 3.03 (1.4-6.5) K/uL Lymph # (Auto) 2.41 (1.2-3.4) K/uL Allen # (Auto) 0.35 (0.11-0.59) K/uL Eos # (Auto) 0.40 (0-0.5) K/uL Baso # (Auto) 0.03 (0-0.2) K/uL PT 9.8 (9.0-12.0) Seconds INR 1.0 (0.9-1.1) APTT 22.9 (21.0-31.0) Seconds PTT Ratio 0.8 Sodium 141 (136-145) mmol/L Potassium 3.3 L (3.5-5.1) mmol/L Chloride 105 (98-107) mmol/L Carbon Dioxide 29 (21-32) mmol/L Anion Gap 6.0 (3-11) BUN 23 H (7-18) mg/dl Creatinine 1.22 H (0.6-1.2) mg/dl Est Cr Clr Drug Dosing 46.4 ml/min Est GFR ( Amer) 49.8 Est GFR (Non-Af Amer) 43.0 BUN/Creatinine Ratio 18.9 (10-20) Glucose 121 H (70-99) mg/dl Calcium 9.4 (8.5-10.1) mg/dl Total Bilirubin 0.3 (0.2-1) mg/dl AST 19 (15-37) U/L ALT 28 (12-78) U/L Alkaline Phosphatase 94 (45-117) U/L Troponin I < 0.015 (0-0.045) ng/ml Total Protein 7.6 (6.4-8.2) gm/dl Albumin 3.8 (3.4-5.0) gm/dl Globulin 3.8 (2.5-4.0) gm/dl Albumin/Globulin Ratio 1.0 (0.9-2) Specimen Hemolysis Blood Type Antibody Screen 02/23/19 Range/Units 22:15 WBC (4.8-10.8) K/uL RBC (4.2-5.4) M/uL Hgb (12.0-16.0) g/dL Hct (37-47) % MCV (80-100) fL MCH (25-34) pg MCHC (32-36) g/dL RDW Std Deviation (36.4-46.3) fL RDW Coeff of Tata (11.5-14.5) % Plt Count (130-400) K/uL MPV (7.4-10.4) fL Immature Gran % (Auto) % Neut % (Auto) % Lymph % (Auto) % Allen % (Auto) % Eos % (Auto) % Baso % (Auto) % Immature Gran # (Auto) (0.00-0.02) K/uL Neut # (Auto) (1.4-6.5) K/uL Lymph # (Auto) (1.2-3.4) K/uL Allen # (Auto) (0.11-0.59) K/uL Eos # (Auto) (0-0.5) K/uL Baso # (Auto) (0-0.2) K/uL PT (9.0-12.0) Seconds INR (0.9-1.1) APTT (21.0-31.0) Seconds PTT Ratio Sodium (136-145) mmol/L Potassium (3.5-5.1) mmol/L Chloride (98-107) mmol/L Carbon Dioxide (21-32) mmol/L Anion Gap (3-11) BUN (7-18) mg/dl Creatinine (0.6-1.2) mg/dl Est Cr Clr Drug Dosing ml/min Est GFR ( Amer) Est GFR (Non-Af Amer) BUN/Creatinine Ratio (10-20) Glucose (70-99) mg/dl Calcium (8.5-10.1) mg/dl Total Bilirubin (0.2-1) mg/dl AST (15-37) U/L ALT (12-78) U/L Alkaline Phosphatase (45-117) U/L Troponin I (0-0.045) ng/ml Total Protein (6.4-8.2) gm/dl Albumin (3.4-5.0) gm/dl Globulin (2.5-4.0) gm/dl Albumin/Globulin Ratio (0.9-2) Specimen Hemolysis Blood Type B Positive Antibody Screen NEGATIVE Imaging Data Radiologist's Impression: Radiology results as stated below per my review and the radiologist's interpretation: CT ABDOMEN & PELVIS With Contrast: Colonic diverticula without diverticulitis. Unremarkable appendix. Fatty liver and few small low-attenuation foci. No radiodense gallstones or pancreatitis. Right hip replacement. 5 mm nodule in the right lung base. Radiologist: Edita Napier MD Study ready at 23:19 and initial results transmitted at 23:30 ECG Data Attestation: I personally reviewed and interpreted this ECG as follows: Indication: other (GI bleed) Rate (beats per minute): 56 Rhythm: sinus bradycardia Findings: + other (normal axis); no PVC Blood Pressure Blood Pressure Findings: Elevated blood pressure Blood Pressure Disposition: further management by hospitalist MDM Narrative Patient is a 78-year-old female who presents the ER for bright red blood per rectum. No significant abdominal pain but does have a history of diverticulitis. Patient denies taking any blood thinners. IV was established blood work was obtained. Labs show no significant leukocytosis or anemia. Vitals were stable. INR was normal. BMP with mild hypokalemia. Creatinine 1.22. Slightly elevated BUN. LFTs bilirubin was unremarkable. Troponin was negative. Patient was typed and screened. CT abdomen pelvis shows no acute pathology. Patient family were updated bedside. Discussed with the hospitalist for bright red blood per rectum that the patient monitored. Impression & Plan GI bleed, Elevated BUN, Hypokalemia Discharge Plan Visit Data Chief Complaint: Rectal Bleed Stated Complaint: RECTAL BLEEDING ED Provider: Jamie Orellana Discharge Problem: GI bleed, Elevated BUN, Hypokalemia Patient Disposition: Being Evaluated by Hospitalist Discharge Instructions Interventions: ED Discharge Assessment Last Done: 02/24/19 01:42 Forms Stand Alone Forms: [employer] [facility] Prescriptions Prescriptions: No Action chlorthalidone 25 mg Tablet 25 mg PO DAILY RF: 0 aspirin [Aspir-81] 81 mg Tablet,Delayed Release (Dr/Ec) 81 mg PO DAILY RF: 0 naproxen sodium [Aleve] 220 mg Tablet 220 mg PO DAILY RF: 0 turmeric 400 mg Capsule 400 mg PO DAILY RF: 0 glucosamine bryant 2KCl-chondroit [Glucosamine-Chondroitin 3X Str] 750-600 mg Tablet 2 tab PO DAILY RF: 0 Referrals Referrals: Solis Burden, [Primary Care Provider] - The scribe's documentation has been prepared under my direction and personally reviewed by me in its entirety. I confirm that the note above accurately reflects all work, treatment, procedures, and medical decision making performed by me.
[2019-02-24] MEDS ORDERED: ACETAMINOPHEN 1,000 MG/100 ML VIAL IV PRN (02:07)
[2019-02-24] MEDS: PANTOprazole 40 MG in SYRINGE 0 ML IV SCH ×3 (02:21→21:04)
[2019-02-24] MEDS: SODIUM CHLORIDE 0.9% 1000ML 1,000 ML IV SCH ×4 (02:21→22:08)
[2019-02-24] MEDS ORDERED: SODIUM CHLORIDE 0.9% 250 ML IV PRN (02:51)
[2019-02-24 04:21] LABS: Hematocrit (blood only) 37.4 % (37-47); Hemoglobin 12.3 g/dL (12.0-16.0)
[2019-02-24] MEDS ORDERED: PNEUMOCOCCAL ADMINISTRATION CHARGE ONE (06:15)
[2019-02-24] MEDS ORDERED: PNEUMOCOCCAL POLYSACCHARIDES 25 MCG/0.5 ML VIAL/SYR IM ONE (06:15)
--- NOTE | 2019-02-24 06:45 | CT Scan Report ---
CT abd pelvis IV con only CLINICAL HISTORY: GI bleed RECTAL BLEEDING COMPARISON STUDY: October 08, 2014, February 2014 TECHNIQUE: The patient was scanned in a dynamic helical fashion during intravenous administration of 93 cc of Optiray 320. A dose lowering technique was utilized adhering to the principles of ALARA. CT DOSE: 916.06 mGy.cm FINDINGS: Lower chest: There is a stable 7 mm subpleural right lower lobe pulmonary nodule. There are dependent atelectatic changes. Liver: There is scattered hypodense hepatic lesions, likely representing cysts. There is no ductal di latation. The portal vein is patent. There is borderline hepatic steatosis. Gallbladder: Unremarkable. Spleen: Normal in size and attenuation. Pancreas: Unremarkable. Adrenal glands: Unremarkable. Kidneys: No solid renal masses are visualized. Subcentimeter renal hypodensities likely represent cys ts. Bowel: There are no transition zones to indicate bowel obstruction. There is colonic diverticulosis. There is no evidence of acute peridiverticular inflammatory change. There is a polypoid lesion within the sigmoid versus enteric contents. In addition there is prominence of the ileocecal valve. Given h istory of rectal bleeding, endoscopic correlation is advocated. There is borderline appendiceal dilat ation. There are no periappendiceal inflammatory changes. Peritoneum: There is no intraperitoneal free air or abdominal ascites. As a small fat-containing umbi lical hernia Vasculature: The abdominal aorta is normal in course and caliber. Adenopathy: Iliac chain lymph nodes are the upper limits of normal in size. Pelvic viscera: The bladder, and pelvic viscera are unremarkable. Skeletal structures: There is artifact from a total right hip arthroplasty. There are no bony destruc tive changes. There is ankylosis of the dorsal spine IMPRESSION: 1. No evidence of bowel obstruction. No evidence of free air 2. Colonic diverticulosis. No evidence of acute diverticulitis 3. Borderline dilatation of the appendix. No periappendiceal inflammatory changes 4. Polypoid lesion within the sigmoid colon versus enteric contents. In addition there is soft tissue prominence of the ileocecal valve. Given history of rectal bleeding, endoscopic follow-up is recomme nded. Electronically signed by: Kiel Kearney M.D. 02/24/2019 6:43 AM
[2019-02-24] MEDS: CHLORTHALIDONE 25 MG TAB PO SCH (07:50)
[2019-02-24 09:56] LABS: Hematocrit (blood only) 35.8 % (37-47); Hemoglobin 11.8 g/dL (12.0-16.0)
[2019-02-24] MEDS ORDERED: POTASSIUM CHLORIDE 20 MEQ TABCR PO ONE (11:15)
--- NOTE | 2019-02-24 12:33 | Hospitalist Progress Note ---
Date of Service February 24, 2019 Assessment & Plan (1) GI bleed: - Presented with normal hgb= 14, has remained stable with subsequent checks. Last was 12.3 - GI consulted - Dr. Delarosa - to eval for if needs upper/lower endoscopy given NSAID use/GERD during admission vs. outpatient - VSS - Continue maintenence fluids while NPO, transition to clears at dinner if no plans for endoscopy today. - Famotidine IV BID - No NSAIDs (2) Elevated BUN: - Associated with GI bleed (3) Colovesical fistula: -Hx of such in 2014, surgery completed by a Dr. Jennings - Occurred d/t diverticular perforation and fistula formation into the bladder. - Resolved (4) Hypokalemia: - Replaced via PO supplementation - Was 3.3 today, follow am labs (5) Obesity (BMI 35.0-39.9 without comorbidity): - BMI = 37 - Diet and exercise to be encouraged upon discharge. (6) DVT prophylaxis: - Teds, ambulatory, no chemical ppx secondary to GI bleed CODE: Full Dispo: From home, possible d/c tomorrow if no plans for GI scope. Supervising Physician Co-Signing Physician Notes Attending Attestation: Chart reviewed, care plan d/w PA Melissa Singer. I agree w/ the kim components of her documentation. Patient with mild acute blood loss anemia, likely due to lower GI bleeding. Diverticular? Appreciate GI consult. To have upper/lower endoscopies tomorrow. Vitals remain stable. Cont serial H/H's. Artur Yanes MD Subjective The patient was seen and examined this morning. Pt states she is doing well. Had 1 BM this morning which appeared to have a dark red clot in it, about the size of a silver dollar. She denies melena, abd pain, nausea, vomiting, lightheadedness or dizziness. She is NPO, and was able to tolerated oral meds without difficulty. She is ambulating by self to the restroom. Pt lives at home with her . Plan for GI to evaluate her today. Review of Systems Review of Systems: Constitutional: No fever, sweats or chills Eyes: No diplopia, no worsening or blurred vision ENT: normal hearing, no trouble swallowing Respiratory: No cough, sputum, dyspnea at rest or on exertion Cardiovascular: No chest pain, tightness or palpitations Abdomen: As per HPI. Musculoskeletal: No joint pain, calf pain, swelling Neurologic: No weakness, numbness/tingling, or balance problems Psychiatric: No anxiety or depression Skin: No rash or itch Physical Exam Physical Exam: General: awake, alert, no apparent distress, cheerful mood Head: Normocephalic, atraumatic ENT: PERRL, EOMI, no pharyngeal exudate, mucous membranes moist Chest: Clear to auscultation, on room air, no adventitious breath sounds Cardiac: Regular rate and rhythm, no murmur, no JVD, normal peripheral pulses, good capillary refill Abdominal: NABS x 4 quadrants, soft, nondistended, nontender to palpation, no rebound, guarding or tenderness Extremities: Normal inspection, no peripheral edema or erythema, calfs nontender to palpation Psych: Normal mood and affect Neuro: AAO x 3, no motor deficits, speech is clear Results & Data Vital Signs (Past 12 Hours) Vital Signs Temp Pulse Pulse Resp BP BP Pulse Ox 02/24/19 11:16 36.4 C L 55 L 14 137/77 94 02/24/19 07:54 36 C L 54 L 16 143/61 H 98 02/24/19 07:41 57 L 02/24/19 01:53 36.4 C L 71 20 147/86 H 02/24/19 01:42 57 L 16 168/86 H 98 02/24/19 01:06 57 L 18 98 02/24/19 00:35 Pulse Ox 02/24/19 11:16 02/24/19 07:54 02/24/19 07:41 02/24/19 01:53 02/24/19 01:42 02/24/19 01:06 02/24/19 00:35 98 PG Care Time/CCT Total # of Minutes Spent Total Time Spent with Patient: Total time spent is greater than 50% in coordination of care (as documented) at patient's floor/unit and/or counseling patient:
[2019-02-24 15:58] LABS: Hematocrit (blood only) 36.4 % (37-47); Hemoglobin 11.9 g/dL (12.0-16.0)
--- NOTE | 2019-02-24 16:05 | Consultation Report ---
DATE OF CONSULTATION: 02/24/2019 GI CONSULT NOTE REASON FOR EVALUATION: Rectal bleeding and anemia. HISTORY OF PRESENT ILLNESS: The patient is a 78-year-old who was well until about 8:00 p.m. last night when she started passing bright red painless bleeding, has passed a fair amount of blood and came to the Emergency Room where she was evaluated and passed more blood. Her hemoglobin dropped from 14 to 11. She had a brown bowel movement today. She takes a baby aspirin every day and Aleve about every other day for arthritis. She has had no abdominal pain, nausea, vomiting, or change in bowels. She is usually very regular with her bowel movements. She does have diverticulosis and had a colovesical fistula that was repaired 4 years ago surgically. She also had a CAT scan on admission that showed diverticulosis, but no obvious complications associated with it. PAST MEDICAL HISTORY: Remarkable for arthritis, colovesical fistula repair. MEDICATIONS: Baby aspirin, Aleve, chlorthalidone, glucosamine and turmeric. ALLERGIES: None. FAMILY HISTORY: Noncontributory. SOCIAL HISTORY: The patient is , does not smoke, drinks alcohol. Lives with her spouse. REVIEW OF SYSTEMS: Negative for 12 systems other than for what is already stated. PHYSICAL EXAMINATION: GENERAL: The patient appears awake, alert, in no acute distress. VITAL SIGNS: Normal. She is afebrile. ABDOMEN: Shows an umbilical hernia which is small and reducible. She has laparoscopic scars and a low abdominal scar from previous tubal ligation. No masses, tenderness, or hepatosplenomegaly. NEUROLOGIC: Nonfocal. IMPRESSION: The patient has a large volume painless bright red rectal bleeding consistent with diverticular bleeding. She does take aspirin, Aleve, so this also raised the possibility of an upper GI bleed. She currently appears to have stopped bleeding and her vitals are normal. I recommend that the patient undergo an EGD and colonoscopy tomorrow by Dr. Hoover. Arrangements will be made and prep ordered.
[2019-02-24] MEDS: LAVAGE SOLUTION 4000ML PO SCH (16:35)
[2019-02-25 06:24] LABS: Hematocrit (blood only) 36.9 % (37-47); Hemoglobin 11.9 g/dL (12.0-16.0); Mean Corpuscular Hgb Conc 32.2 g/dL (32-36); Mean Corpuscular Volume 86.6 fL (80-100); Mean Platelet Volume 11.2 fL (7.4-10.4); Platelet Count 186 K/uL (130-400); RDW Coefficient of Variation 14.2 % (11.5-14.5); RDW Standard Deviation 44.8 fL (36.4-46.3); Red Blood Count 4.26 M/uL (4.2-5.4)
[2019-02-25] MEDS: LAVAGE SOLUTION 4000ML PO SCH (06:58)
[2019-02-25 07:17] LABS: Albumin Globulin Ratio 0.9 (0.9-2); Albumin Level 3.1 gm/dl (3.4-5.0); BUN Creatinine Ratio 10.3 (10-20); Bilirubin,Total 0.5 mg/dl (0.2-1); Calcium 8.7 mg/dl (8.5-10.1); Creatinine Clr Calc Pharmacy 72.2 ml/min; Est GFR (African American) 85.6; Est GFR (Non-African American) 73.8; Globulin 3.4 gm/dl (2.5-4.0); Potassium 3.4 mmol/L (3.5-5.1); Total Protein 6.5 gm/dl (6.4-8.2)
[2019-02-25] MEDS ORDERED: POTASSIUM CHLORIDE 20 MEQ TABCR PO ONE (08:00)
[2019-02-25] MEDS: CHLORTHALIDONE 25 MG TAB PO SCH (08:03)
[2019-02-25] MEDS: PANTOprazole 40 MG in SYRINGE 0 ML IV SCH (08:03)
--- NOTE | 2019-02-25 12:13 | Hospitalist Progress Note ---
Date of Service February 25, 2019 Assessment & Plan (1) GI bleed: - Presented with large volume painless bright red blood at rectum in setting of home NSAID use. - GI consulted, appreciate input. Plan for EGD/colonoscopy this afternoon. - Monitor H/H daily -- has been stable; vital signs also stable. - PPI IV BID. - NPO for procedure; no IV fluids indicated. - Avoid NSAIDs/anticoagulation therapy at this time. (2) Acute anemia: - In setting of acute GI bleed; monitor daily. (3) Elevated BUN: - Related to GI bleed; now improved. (4) Colovesical fistula: - Hx of such in 2014, surgery completed by Dr. Jennings. - Occurred d/t diverticular perforation and fistula formation into the bladder. (5) HTN (hypertension): - Continue Chlorthalidone as prescribed. - BP has been elevated -- consider adding additional BP agent if necessary. (6) Hypokalemia: - K level 3.4 -- ordered K 40 mEq PO. - Monitor levels qAM. (7) Obesity (BMI 35.0-39.9 without comorbidity): - BMI 37 -- encourage diet and exercise. (8) DVT prophylaxis: - SCDs; hold pharmacologic ppx due to acute bleed. Dispo: Discharge to home likely on 02/26/19 pending results of GI procedure/stable H/H. Supervising Physician Co-Signing Physician Notes Attending Attestation: Pt seen/examined, chart reviewed, care plan d/w DIONNE Zeng. I agree w/ the kim components of her documentation. Patient with mild acute blood loss anemia due to lower GI bleeding. H/H, however, have leveled off and have remained stable. s/p EGD today - wnl. No source of bleeding. s/p colonoscopy today - extensive diverticular disease from sigmoid to transverse colon. Large internal hemorrhoids. 1 polyp. Diverticular disease likely cause of GI bleed. NEEDS DAILY FIBER SUPPLEMENT. Discharge exam - gen - NAD, obese heart - RRR, s1, s2 lungs - CTA b/l abd - soft NT ND BS+ ext - no edema Artur Yanes MD Subjective Pt. is doing well overall. No further episodes of GI bleeding noted over last 24 hours. Denies abd pain, nausea/vomiting. Plan for scope this afternoon. Review of Systems Review of Systems: All systems reviewed & are unremarkable except as noted in HPI & below Constitutional: no fever, no chills, no fatigue, no weakness and no anorexia Respiratory: no cough, no dyspnea and no dyspnea on exertion Cardiovascular: no chest pain, no palpitations and no edema Gastrointestinal: + diarrhea/loose stools (Colonoscopy prep); no abdominal pain, no nausea, no vomiting, no constipation, no blood in stools and no melena Genitourinary: no difficulty urinating Musculoskeletal: no back pain and no joint pain Integumentary: no non-healing lesions Allergy / Immunological: no rash Physical Exam Physical Exam: General: Resting comfortably HEENT: NC/AT; PERRLA with EOMI; [place] conjunctiva, MMM. No erythema of posterior pharynx Neck: Supple and nontender Cardiac: RRR Lungs: CTA bilaterally Abdomen: Bowel normoactive X 4; Nontender to palpation Extremities: Warm. No edema present Neuro: No focal weakness Skin: No rash Results & Data Vital Signs (Past 12 Hours) Vital Signs Temp Pulse Pulse Resp BP Pulse Ox 02/25/19 11:24 36.7 C 49 L 18 162/86 H 98 02/25/19 07:27 36.6 C 52 L 18 166/76 H 96 02/25/19 07:11 45 L 02/25/19 04:53 36.7 C 53 L 18 162/82 H 95 Laboratory Results 02/25/19 02/25/19 02/24/19 Range/Units 06:06 06:06 15:39 WBC 4.40 L (4.8-10.8) K/uL RBC 4.26 (4.2-5.4) M/uL Hgb 11.9 L 11.9 L (12.0-16.0) g/dL Hct 36.9 L 36.4 L (37-47) % MCV 86.6 (80-100) fL MCH 27.9 (25-34) pg MCHC 32.2 (32-36) g/dL RDW Std Deviation 44.8 (36.4-46.3) fL RDW Coeff of Tata 14.2 (11.5-14.5) % Plt Count 186 (130-400) K/uL MPV 11.2 H (7.4-10.4) fL Sodium 142 (136-145) mmol/L Potassium 3.4 L (3.5-5.1) mmol/L Chloride 110 H (98-107) mmol/L Carbon Dioxide 28 (21-32) mmol/L Anion Gap 4.0 (3-11) BUN 8 D (7-18) mg/dl Creatinine 0.78 D (0.6-1.2) mg/dl Est Cr Clr Drug Dosing 72.2 ml/min Est GFR ( Amer) 85.6 Est GFR (Non-Af Amer) 73.8 BUN/Creatinine Ratio 10.3 (10-20) Glucose 107 H (70-99) mg/dl Calcium 8.7 (8.5-10.1) mg/dl Total Bilirubin 0.5 (0.2-1) mg/dl AST 16 (15-37) U/L ALT 24 (12-78) U/L Alkaline Phosphatase 60 (45-117) U/L Total Protein 6.5 (6.4-8.2) gm/dl Albumin 3.1 L (3.4-5.0) gm/dl Globulin 3.4 (2.5-4.0) gm/dl Albumin/Globulin Ratio 0.9 (0.9-2) PG Care Time/CCT Total # of Minutes Spent Total Time Spent with Patient: Total time spent is greater than 50% in coordination of care (as documented) at patient's floor/unit and/or counseling patient:
--- NOTE | 2019-02-25 15:16 | Anesthesiology Consultation ---
Date of Service February 25, 2019 Assessment & Plan Chart Review Chart Review: Acceptable Risk for Surgery and Patient NOT seen in Pre Admission Testing Consults Requested none History Surgery Operation Date: 02/25/19 09:45 Proposed Procedures p Colonoscopy EGD Dr Hoover - Jeffy Hoover Height/Weight Height: 5 ft 5 in Weight: 100.8 kg Allergies Allergy/AdvReac Type Severity Reaction Status Date / Time No Known Allergies Allergy NONE Verified 02/23/19 21:55 Medications Home Medications Medication Instructions Recorded Confirmed Last Taken aspirin [Aspir-81] 81 mg PO DAILY 02/23/19 02/23/19 02/23/19 chlorthalidone 25 mg PO DAILY 02/23/19 02/23/19 02/23/19 glucosamine bryant 2KCl-chondroit 2 tab PO DAILY 02/23/19 02/23/19 02/23/19 [Glucosamine-Chondroitin 3X Str] naproxen sodium [Aleve] 220 mg PO DAILY 02/23/19 02/23/19 02/23/19 turmeric 400 mg PO DAILY 02/23/19 02/23/19 02/23/19 Active Medications Generic Name Dose Route Start Last Admin Trade Name Arunq PRN Reason Stop Dose Admin Chlorthalidone 25 mg 02/24/19 09:00 02/25/19 08:03 [place] PO 03/26/19 08:59 25 mg DAILY SAMM Administration Pantoprazole Sodium 40 mg/ 10 mls @ 5 mls/min 02/24/19 02:00 02/25/19 08:03 Syringe IV 03/26/19 01:59 5 mls/min BID@0900,2100 SAMM Administration NPO Date Last Intake of Fluids: 02/25/19 Time Last Intake of Fluids: 10:00 Date Last Intake of Solids: 02/23/19 Time Last Intake of Solids: 20:00 Past Medical History Medical History Obesity (BMI 35.0-39.9 without comorbidity) GI bleed (Acute) Elevated BUN (Acute) 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 Past Family History Family History Other Family history non-contributory Past Surgical History Surgical History [place]-vesical fistula No pertinent past surgical history Social History Smoking Status: Never smoker Do You Dip or Chew Tobacco: No Hx Alcohol Use: Yes alcohol intake frequency: holidays/special occasions only Hx Substance Use: No Physical Exam Vital Signs Last Vital Signs Temp 36.7 C 02/25/19 15:03 Pulse 54 L 02/25/19 15:03 Resp 20 02/25/19 15:03 BP 170/82 H 02/25/19 15:03 Pulse Ox 98 02/25/19 15:03 Testing Laboratory Results 02/25/19 06:06 02/25/19 06:06 PT 9.8 Seconds (9.0-12.0) 02/23/19 21:48 INR 1.0 (0.9-1.1) 02/23/19 21:48 APTT 22.9 Seconds (21.0-31.0) 02/23/19 21:48 Blood Type B Positive 02/23/19 22:15 Antibody Screen NEGATIVE 02/23/19 22:15
--- NOTE | 2019-02-25 15:16 | Gastroenterology Progress Note ---
Date of Service February 25, 2019 Assessment & Plan (1) GI bleed: EGD/colonocopy today. Procs and risks explained to patient which include but not limited to med reaction,bleeding, perforation,aspiration and missed lesions. Subjective cc f/u gi bleeding HPI Pt s/p bowel prep for EGD/Colonoscopy. No abd pain. Hgb stable Physical Exam Respiratory: normal respiratory effort, lungs clear to auscultation Cardiovascular: RRR, no murmur, no edema Gastrointestinal (Abdomen): normal bowel sounds, soft, nontender, no hepatosplenomegaly Results & Data Vital Signs (Past 12 Hours) Vital Signs Temp Pulse Pulse Pulse Resp BP Pulse Ox 02/25/19 15:03 36.7 C 54 L 54 L 20 170/82 H 98 02/25/19 15:02 36.4 C L 51 L 18 150/76 H 99 02/25/19 11:24 36.7 C 49 L 18 162/86 H 98 02/25/19 07:27 36.6 C 52 L 18 166/76 H 96 02/25/19 07:11 45 L 02/25/19 04:53 36.7 C 53 L 18 162/82 H 95
[2019-02-25] MEDS ORDERED: ePHEDrine sulfate 50 MG/ML AMP IV PRN (15:19)
[2019-02-25] MEDS ORDERED: ATROPINE SULFATE 0.1 MG/ML 10ML SYR IV PRN (15:19)
--- NOTE | 2019-02-25 15:54 | GI REPORT ---
Patient Name: aRmonita Gonzalez Procedure Date: 02/25/2019 3:23 PM Date of : 1940 Admit Type: Inpatient Age: 78 Gender: Female Attending MD: Jeffy Hoover MD Procedure: Upper GI endoscopy Providers: Jeffy Hoover MD Referring MD: Artur Yanes Indications: Hematochezia Medicines: Monitored Anesthesia Care Complications: No immediate complications. Estimated blood loss: None. Estimated Blood Loss: Estimated blood loss: none. Procedure: Pre-Anesthesia Assessment: - The risks and benefits of the procedure and the sedation options and risks were discussed with the patient. All questions were answered and informed consent was obtained. - Patient identification and proposed procedure were verified prior to the procedure by the physician, the nurse and the radial router operator. The procedure was verified in the procedure room. After obtaining informed consent, the endoscope was passed under direct vision. Throughout the procedure, the patient's blood pressure, pulse, and oxygen saturations were monitored continuously. The Endoscope was introduced through the mouth, and advanced to the second part of duodenum. The upper GI endoscopy was accomplished without difficulty. The patient tolerated the procedure well. Procedure and risks explained to patient which include but not limited to medication reaction, bleeding, perforation, aspiration , and missed lesions. Judicious gas insufflation was used and gas removal done on the way out. The lumen was always visualized when advancing the scope. Prep was good. Washes and suctioning used as needed to get good visualization of the mucosa. Retroflexion to look at the fundus and cardia of the stomach and GE junction was done. Findings: The Z-line was regular and was found 40 cm from the incisors. A 1 cm hiatal hernia was present. The stomach was normal. The examined duodenum was normal. Impression: - Z-line regular, 40 cm from the incisors. - 1 cm hiatal hernia. - Normal stomach. - Normal examined duodenum. - No specimens collected. Recommendation: - [facility] same day. Jeffy Hoover M.D. Jeffy Hoover MD 02/25/2019 3:53:57 PM This report has been signed electronically. Note Initiated On: 02/25/2019 3:23 PM Number of Addenda: 0 I attest to the content of the Intraoperative Record and orders documented therein, exceptions below {[id number]}
--- NOTE | 2019-02-25 15:57 | Anesthesiology Progress Note ---
Date of Service February 25, 2019 Anesthesia Post Procedure Vital Signs Vital Signs: Temp Pulse Pulse Pulse Resp BP Pulse Ox 02/25/19 15:03 36.7 C 54 L 54 L 20 170/82 H 98 02/25/19 15:02 36.4 C L 51 L 18 150/76 H 99 02/25/19 11:24 36.7 C 49 L 18 162/86 H 98 02/25/19 07:27 36.6 C 52 L 18 166/76 H 96 02/25/19 07:11 45 L 02/25/19 04:53 36.7 C 53 L 18 162/82 H 95 02/24/19 23:44 56 L 02/24/19 23:43 36.4 C L 58 L 18 142/67 H 96 02/24/19 20:21 56 L 174/75 H 02/24/19 19:38 59 L 02/24/19 19:35 36.4 C L 53 L 18 178/81 H 98 Pain Intensity Bilateral Anterior Abdomen: Pain Intensity: 0 Transfer of Care Handoff Completed per policy Notes Mental Status: alert / awake / arousable Patient Amnestic to Procedure: Yes Nausea / Vomiting: adequately controlled Pain: adequately controlled Airway Patency, RR, SpO2: stable & adequate BP & HR: stable & adequate Hydration State: stable & adequate Anesthetic Complications: no major complications apparent and Pt Satisfied with anesthetic care
[2019-02-25] MEDS ORDERED: PROPOFOL IV EMULSION 10 MG/ML 20 ML VIAL IV ONE (15:58)
[2019-02-25] MEDS ORDERED: LIDOCAINE HCL 2% 2 ML VIAL/AMP(20MG/ML) INFIL ONE (15:58)
--- NOTE | 2019-02-25 15:58 | GI REPORT ---
Patient Name: Ramonita Gonzalez Procedure Date: 02/25/2019 3:32 PM Date of : 1940 Admit Type: Inpatient Age: 78 Gender: Female Attending MD: Jeffy Hoover MD Procedure: Colonoscopy Providers: Jeffy Hoover MD Referring MD: Artur Yanes Indications: Hematochezia Medicines: Monitored Anesthesia Care Complications: No immediate complications. Estimated blood loss: Minimal. Estimated Blood Loss: Estimated blood loss was minimal. Procedure: Pre-Anesthesia Assessment: - The risks and benefits of the procedure and the sedation options and risks were discussed with the patient. All questions were answered and informed consent was obtained. - Patient identification and proposed procedure were verified prior to the procedure by the physician, the nurse and the senior safety support manager. The procedure was verified in the procedure room. After I obtained informed consent, the scope was passed under direct vision. Throughout the procedure, the patient's blood pressure, pulse, and oxygen saturations were monitored continuously. The scope was introduced through the anus and advanced to the terminal ileum, with identification of the appendiceal orifice and IC valve. The colonoscopy was performed without difficulty. The patient tolerated the procedure well. Procedure and risks explained to patient which include but not limited to med reaction, bleeding, perforation, aspiration and missed lesions. Judicious gas insufflation and gas removal done on the way out. The lumen always well visualized when advancing the scope. Washes and suctioning used as needed for good visuzlization of mucosa. Prep was good. Retroflexion in the rectum to look at the distal rectum and anal canal done. Findings: The terminal ileum appeared normal. A 5 mm polyp was found in the ascending colon. The polyp was sessile. The polyp was removed with a lift and cut technique using a cold snare. Resection and retrieval were complete. Estimated blood loss was minimal. Multiple large-mouthed diverticula were found from sigmoid to transverse colon. Internal hemorrhoids were found during retroflexion. The hemorrhoids were large. The exam was otherwise without abnormality on direct and retroflexion views. Impression: - The examined portion of the ileum was normal. - One 5 mm polyp in the ascending colon, removed using lift and cut and a cold snare. Resected and retrieved. - Diverticulosis from sigmoid to transverse colon. - Internal hemorrhoids. - The examination was otherwise normal on direct and retroflexion views. Recommendation: - [facility] possible discharge same day. - No bleeding at present. Suspect bleeding was from diverticulosis. - Await pathology results. - Repeat colonoscopy for surveillance based on pathology results. Jeffy Hoover M.D. Jeffy Hoover MD 02/25/2019 3:58:02 PM This report has been signed electronically. Note Initiated On: 02/25/2019 3:32 PM Number of Addenda: 0 I attest to the content of the Intraoperative Record and orders documented therein, exceptions below {[id number]}
--- NOTE | 2019-02-25 16:05 | Gastroenterology Progress Note ---
Date of Service February 25, 2019 Assessment & Plan (1) GI bleed: S/P EGD and colo see reports. Solid diet. Can DC home from GI standpoint. Suspect diverticular bleed. . Results & Data Vital Signs (Past 12 Hours) Vital Signs Temp Pulse Pulse Pulse Resp BP Pulse Ox 02/25/19 15:56 64 16 139/82 97 02/25/19 15:03 36.7 C 54 L 54 L 20 170/82 H 98 02/25/19 15:02 36.4 C L 51 L 18 150/76 H 99 02/25/19 11:24 36.7 C 49 L 18 162/86 H 98 02/25/19 07:27 36.6 C 52 L 18 166/76 H 96 02/25/19 07:11 45 L 02/25/19 04:53 36.7 C 53 L 18 162/82 H 95
--- NOTE | 2019-02-25 17:59 | Discharge Summary ---
Date of Service February 25, 2019 Admission HPI Per Admitting Provider This is a 78-year-old female who presents with bright red blood per rectum when she went to the bathroom earlier today. Patient states she has had several bouts of painless rectal bleeding, described as bright red blood with some clots earlier this evening prior to admission. States she had a normal bowel movement this morning that was nonbloody. And then later in the day began to experience increased flatulence. She states she has not had any abdominal pain associated with this or fevers, but does state that she has a history of reflux disease but no known ulcerative disease. She does take 1 Aleve per day. She also takes a baby aspirin for general prevention but has no cardiac history. Had a colonoscopy several years ago and told to return in 5 years. Has not had an upper endoscopy. Endorses some lightheadedness. Denies history of anemia. Denies syncope or falls or chest pain or difficulty breathing. Denies abdominal pain. Denies dysuria. Past medical history includes degenerative joint disease, diverticulosis, colovesicular fistula. Past surgical history includes joint replacements and colovesicular fistula repair about 4 years ago. ED course: Per report patient did lose another cup and a half of blood per rectum. IV fluids. Admission Exam Per Admitting Provider Vitals noted and within normal limits with the exception of hypertension. GENERAL: Awake, alert to person, place, and time, nontoxic-appearing, in no distress. HENT: Normocephalic, atraumatic. Mucus membranes appear moist. EYES: Normal conjunctiva. Sclera non-icteric. EOMI. NECK: Supple. Full range of motion. No JVD. RESPIRATORY: Clear to auscultation. Normal work of breathing. CARDIAC: Regular rate, normal rhythm. Extremities warm and well perfused, 2+ radial pulses bilaterally; 2+ posterior tibialis pulses bilateral. ABDOMEN: Soft, non-distended. No tenderness to palpation in all four quadrants. No rebound or guarding. No masses. Bowel sounds are normal. LOWER EXTREMITIES: Inspection of calves reveal equal size bilaterally. They are non-tender. No edema. No discoloration. NEURO: No gross focal motor deficits noted. Sensation in tact. CN II-XII grossly in tact. . SKIN: Rash not present. No jaundice noted. Significant lesions not present. PSYCH: Appropriate mood and affect. Cooperative. Principal Diagnosis GI Bleed Discharge Exam General: Resting comfortably HEENT: NC/AT; PERRLA with EOMI; [place] conjunctiva, MMM. No erythema of posterior pharynx Neck: Supple and nontender Cardiac: RRR Lungs: CTA bilaterally Abdomen: Bowel normoactive X 4; Nontender to palpation Extremities: Warm. No edema present Neuro: No focal weakness Skin: No rash Discharge Data Allergies Allergy/AdvReac Type Severity Reaction Status Date / Time No Known Allergies Allergy NONE Verified 02/23/19 21:55 Consultations 02/23/19 23:35 ED Decision to Admit Stat 02/24/19 02:07 Consult Gastroenterology Routine Procedures Performed Operation Date: 02/25/19 09:45 Actual Procedures p Esophagogastroduodenoscopy(Left) - Jeffy Hoover s Colonoscopy Polypectomy(Left) - Jeffy Hoover Ordered Studies 02/23/19 22:02 CT abd pelvis IV con only Urgent Hospital Course (1) GI bleed: Presented with large volume painless bright red blood at rectum in setting of home NSAID use. GI consulted, appreciate input. S/p EGD and Colonoscopy with results as follows -- Colonoscopy: diverticulosis, internal hemorrhoids, one 5 mm polyp in ascending colon, biopsied. EGD: 1 cm hiatal hernia, otherwise negative. H/H remained stable. PPI IV BID -- PPI PO BID at home. Resumed diet following procedure. Avoid NSAIDs/anticoagulation therapy at this time. Stable for discharge to home on 02/25/19. Will f/u with GI and PCP. Script provided for CBC in 5 days. (2) Acute anemia: In setting of acute GI bleed; monitor daily. Script provided for outpt labs. (3) Elevated BUN: Related to GI bleed; now improved. (4) Colovesical fistula: Hx of such in 2015, surgery completed by Dr. Jennings. Occurred d/t diverticular perforation and fistula formation into the bladder. (5) HTN (hypertension): Continued Chlorthalidone as prescribed. BP has been elevated -- consider adding additional BP agent if necessary as outpatient. (6) Hypokalemia: K level 3.4 -- ordered K 40 mEq PO. Sent home with course of KCl 20 mEq daily x 5 days. (7) Obesity (BMI 35.0-39.9 without comorbidity): BMI 37 -- encourage diet and exercise. (8) DVT prophylaxis: SCDs; held pharmacologic ppx due to acute bleed. Discharged to home on 02/25/19. Total Time Total Time Spent Total Time Spent (In Minutes): >30 minutes Total Time Includes: Examination of the Patient, Discharge Planning, Medication Reconciliation, Communication With Other Providers and Other Discharge Plan Discharge Items Patient Disposition: Home - Self-Care Reason For Visit: GI BLEED Discharge Diagnosis: GI Bleed Condition: Good Discharge Goals: Decrease discomfort, Improve disease control, Improve function, Increase independence, Improve nutritional status and Prevent disease Activity: As commented below Exercise/Sports: Wait until after follow-up appointment Non-emergency contact: Primary Care Provider Call non-emergency contact if: you have any medication questions, your symptoms worsen, your pain is not controlled, your pain is worsening, your pain is unusual for you, your pain is concerning for you and you have a fever Follow-up/Referrals: Solis Burden, [Primary Care Provider] - 03/03/19 1:30 pm (Please, follow up at Dr. Burden's office with his associate, Dr. Mela Ayon, on SundayMarch 03 at 1:30 pm. *If you need to change this appointment, call the office at [phone].) Moustapha Delarosa [Physician] - (Please follow up with GI in 1-2 weeks. ) Diet: Heart Healthy Other Ambulatory Orders: Basic Metabolic Panel (Routine) Timeframe: 5 Days Location: Determined by Patient Ordered By: Felicia Zeng Complete Blood Count no Diff (Timed) Timeframe: [id number] Location: Determined by Patient Ordered By: Felicia Zeng Add Provider Instructions: 1. GI Bleed * S/p EGD and Colonoscopy today; please follow up with GI to discuss results. * Please take Protonix twice daily until your follow up appointment. * Avoid NSAIDs/Aspirin at home unless instructed otherwise by GI/PCP providers. * Please follow up with Dr. Burden as scheduled on 03/03/19. * Script was provided for lab work in 5 days to monitor CBC. Results will be faxed to your PCP. * Please take an over the counter daily fiber supplement in the setting of diverticulosis. 2. Low Potassium * Please take potassium 20 mEq daily at home to complete a 5 day course. * Script was provided for lab work in 5 days. Prescriptions: New pantoprazole [Protonix] 40 mg tablet,delayed release (DR/EC) 40 mg PO BID 30 Days Qty: 60 RF: 0 potassium chloride 20 mEq tablet extended release 20 meq PO DAILY Qty: 5 RF: 0 Continued chlorthalidone 25 mg Tablet 25 mg PO DAILY RF: 0 turmeric 400 mg Capsule 400 mg PO DAILY RF: 0 glucosamine bryant 2KCl-chondroit [Glucosamine-Chondroitin 3X Str] 750-600 mg Tablet 2 tab PO DAILY RF: 0 Discontinued aspirin [Aspir-81] 81 mg Tablet,Delayed Release (Dr/Ec) 81 mg PO DAILY RF: 0 naproxen sodium [Aleve] 220 mg Tablet 220 mg PO DAILY RF: 0 Stand-Alone Forms: [facility] Discharge Orders: Discharge Order (Routine); Ordered 02/25/19 Ordered By: Felicia Zeng Admission Data Admit Date/Time: 02/24/19 01:08 Attending Provider: Artur Yanes Admit Provider: Marisela Ortiz Primary Care Provider: Solis Burden Other Providers: Barber Salgado ; Moustapha Delarosa Service: Telemetry Medical Other Interventions: Discharge Summary Assessment (RN) Last Done: 02/25/19 17:47 Pending Studies at Discharge: Yes Studies:: Biopsy from EGD/Colonoscopy. DC Date/Time DO NOT enter until pt leaves facility: 02/25/19 19:30 Supervising Physician Co-Signing Physician Notes Attending Attestation: Pt seen/examined, chart reviewed, care plan d/w DIONNE Zeng. I agree w/ the kim components of her discharge documentation. Patient presented with BRBPR 2nd to lower GI bleeding. Had mild acute blood loss anemia - discharge Hb was 11.9, down from 14.3 at admission. s/p EGD - wnl. No source of bleeding. s/p colonoscopy - extensive diverticular disease from sigmoid to transverse colon. Large internal hemorrhoids. 1 polyp. Diverticular disease likely cause of GI bleed. NEEDS DAILY FIBER SUPPLEMENT. Discharge exam - gen - NAD, obese heart - RRR, s1, s2 lungs - CTA b/l abd - soft NT ND BS+ ext - no edema No aspirin or NSAIDs for now. Repeat cbc for stability in 3-5 days. Artur Yanes MD
== END 2019-02-25 19:30 | disposition home or self-care (01) ==
LOC: ED 21:09 → 2N 21:09 → SUATTDRO 02-24 01:08 → 2N 02-24 01:42
DX: I10 Essential (primary) hypertension; K57.30 Diverticulosis of large intestine without perforation or abscess without bleeding; D12.2 Benign neoplasm of ascending colon; Z79.899 Other long term (current) drug therapy; K92.2 Gastrointestinal hemorrhage, unspecified; K64.8 Other hemorrhoids; Z68.35 Body mass index [BMI] 35.0-35.9, adult; Z79.82 Long term (current) use of aspirin; E66.01 Morbid (severe) obesity due to excess calories; K44.9 Diaphragmatic hernia without obstruction or gangrene; R79.9 Abnormal finding of blood chemistry, unspecified; D64.9 Anemia, unspecified

== ENCOUNTER 2023-03-28 05:08 | Observation (INO) ==
--- NOTE | 2023-03-06 09:17 | PAT Medication Instructions ---
Medication Instructions Date of Service March 06, 2023 Home Medications chlorthalidone 25 mg tablet 25 mg PO QAM glucosamine sulf dipotassium Cl 750 mg-chondroitin sulf 600 mg tablet (Glucosamine-Chondroitin 3X Triple Strength) 2 tab PO QAM turmeric 400 mg capsule 800 mg PO QAM amlodipine 10 mg tablet 10 mg PO QAM exemestane 25 mg tablet (Aromasin) 25 mg PO QAM naproxen sodium 220 mg capsule (Aleve) 220 mg PO QAM potassium chloride 10 mEq tablet,extended release 10 meq PO WK ASK your surgeon for instructions naproxen sodium 220 mg capsule (Aleve) 220 mg PO QAM ASK your prescriber and surgeon exemestane 25 mg tablet (Aromasin) 25 mg PO QAM STOP taking 2 weeks before surgery (or as soon as possible if surgery is within 2 weeks) glucosamine sulf dipotassium Cl 750 mg-chondroitin sulf 600 mg tablet (Glucosamine-Chondroitin 3X Triple Strength) 2 tab PO QAM turmeric 400 mg capsule 800 mg PO QAM DO NOT take the morning of surgery chlorthalidone 25 mg tablet 25 mg PO QAM potassium chloride 10 mEq tablet,extended release 10 meq PO WK Take morning of surgery With a small sip of water, OTHERWISE NOTHING TO EAT OR DRINK AFTER MIDNIGHT: amlodipine 10 mg tablet 10 mg PO QAM Other Notes If you have any questions please call us at [phone] or [phone] or [phone] or [phone]
--- NOTE | 2023-03-12 11:16 | Anesthesiology Consultation ---
Date of Service March 12, 2023 Assessment & Plan (1) Encounter for pre-operative examination: Chart Review Chart Review: Acceptable Risk for Surgery (pending PCP clearance 03/15/23, most recent Dr. Rawls cardio note, most recent ECHO from [facility], and most recent neck CTA/MRA/carotid doppler if available ) and Patient seen in Pre Admission Testing - Awaiting PCP clearance 03/15/23 (Bridget Silvestre) - Please obtain most recent cardio note, most recent ECHO, most recent neck CTA /MRA or carotid doppler (Dr. Rawls/[facility]) - Pt is NOT an OPJ candidate Per PAT appt on 03/12/23, patient denies any recent travel. No recent Covid exp osures, Covid related symptoms, or recent Covid positive tests. Will leave to surgeon's discretion if preop Covid testing needed. Educated on importance of using Covid precautions one week prior to surgery Teaching & Discussion Pre-Anesthesia Teaching/Discussion Notes: Instructed NPO after midnight before surgery,except medications with 15 cc of water. Medication instructions provided according to the PAT guidelines. History Surgery Operation Date: 03/28/23 07:00 Proposed Procedures p Left Total Hip Arthroplasty - Brandon Hayes MD Height/Weight Height: 5 ft 5 in Weight: 94.9 kg Allergies Allergy/AdvReac Type Severity Reaction Status Date / Time lisinopril Allergy Severe Hives Verified 03/01/23 12:26 nitrofurantoin Allergy Severe Hives Verified 03/01/23 12:26 [From Macrobid] Medications Home Medications Medication Instructions Recorded Confirmed Last Taken chlorthalidone 25 mg tablet 25 mg PO QAM 02/23/19 03/01/23 02/23/19 glucosamine sulf dipotassium Cl 2 tab PO QAM 02/23/19 03/01/23 02/23/19 750 mg-chondroitin sulf 600 mg tablet (Glucosamine-Chondroitin 3X Triple Strength) turmeric 400 mg capsule 800 mg PO QAM 02/23/19 03/01/23 02/23/19 amlodipine 10 mg tablet 10 mg PO QAM 03/22/21 03/01/23 Unknown exemestane 25 mg tablet (Aromasin) 25 mg PO QAM 08/30/22 03/01/23 Unknown naproxen sodium 220 mg capsule 220 mg PO QAM 03/01/23 03/01/23 Unknown (Aleve) potassium chloride 10 mEq 10 meq PO WK 03/01/23 03/01/23 Unknown tablet,extended release Past Medical History Medical History Cardiac murmur Follows with Dr. Rawls. 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 No additional intracranial aneurysms. Diverticular disease GI bleed Years ago History of breast cancer Dx'd January 2021 - Rt breast - treated surgically (lumpectomy) History of COVID-19 06/2022 asymptomatic HTN (hypertension) Obesity (BMI 35.0-39.9 without comorbidity) Osteoarthritis Sleep apnea CPAP Exercise / Class Metabolic Activity III < 4 Walking/Shop/Light housework (one flight of stairs - no chest pain, mild SOB ) Past Family History Family History Father No problems noted. Mother No problems noted. Son No problems noted. Son No problems noted. Son No problems noted. Other Family history non-contributory No family history of adverse response to anesthesia Past Surgical History Surgical History [place]-vesical fistula hx surgical repair History of colonoscopy History of lumpectomy (01/21/21) Right History of surgery on left wrist History of total knee replacement (TKR) bilateral History of ultrasound guided needle biopsy (12/13/20) Right Breast Status post hip replacement Right Past Anesthesia History No Hx of Anesthesia Complications and No Family Hx of Anesthesia Complications History of PONV No Hx of PONV and No Hx of Motion Sickness Social History Smoking Status: Never smoker Do You Dip or Chew Tobacco: No Hx Alcohol Use: Yes Alcohol type: wine alcohol intake frequency: holidays/special occasions only Hx Substance Use: No substance use type: does not use Review of Systems 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 No hx of seizures, stroke, [place]. No hx of blood clots or blood transfusions Physical Exam Vital Signs VITALS BP 119/67 P 53 TEMP 97.5 SP02 96% RESP 16 Constitutional no acute distress ENMT Mouth: no TMJ clicking Thyromental Distance: > or= 3.5 Finger Breadths (3.5) Mallampati Class: I Mouth / Teeth: 1. Permanent implant 2. Cap Neck + limited neck extension (significant ) Respiratory normal respiratory effort; no respiratory distress Auscultation: lungs clear to auscultation bilaterally; no wheezes Cardiovascular Rate/Rhythm: regular rate and regular rhythm Heart Sounds: + murmur (III/ murmur ) Vessels: + carotid bruit (faint bruit left side vs murmur radiation ) Musculoskeletal Spine: + pain with cervical ROM (stiffness ) Extremities: extremities normal to inspection Psychiatric Orientation: alert Lab Results Anesthesia Preop Results Results Anesthesia Widget: WBC 4.83 K/ul (4.8-10.8) 03/12/23 Hgb 14.6 g/dl (12.0-16.0) 03/12/23 Hct 43.7 % (37.0-47.0) 03/12/23 Plt 250 K/uL (130-400) 03/12/23 Na 138 mmol/L (136-145) 03/12/23 K 3.4 mmol/L (3.5-5.1) L 03/12/23 Cl 101 mmol/L (98-107) 03/12/23 CO2 30 mmol/L (21-32) 03/12/23 BUN 21 mg/dl (6-23) 03/12/23 Creat 0.88 mg/dl (0.6-1.2) 03/12/23 Glucose Level 116 mg/dl (70-99(Fasting)) H 03/12/23 PT 10.9 Seconds (9.0-12.0) 03/12/23 PTT 25.6 Seconds (21.0-31.0) 03/12/23 INR 1.0 (0.9-1.1) 03/12/23 Urine Color Yellow 03/12/23 Urine Appearance Clear (Clear) 03/12/23 Urine pH 7.5 (4.5-7.5) 03/12/23 Urine Specific Mildred 1.015 (1.000-1.030) 03/12/23 Urine Protein Negative (Negative) 03/12/23 Urine Glucose (UA) Negative (Negative) 03/12/23 Urine Ketones Negative (Negative) 03/12/23 Urine Blood Negative (Negative) 03/12/23 Urine Nitrite Negative (Negative) 03/12/23 Urine Bilirubin Negative (Negative) 03/12/23 Urine Urobilinogen Negative (Negative) 03/12/23 Urine Leukocyte Esterase 2+ (Negative) H 03/12/23 Urine WBC (Auto) 10-30 /hpf (0-5) H 03/12/23 Urine RBC (Auto) 0-4 /hpf (0-4) 03/12/23 Urine Hyaline Casts (Auto) 0 /lpf (0-5) 03/12/23 Urine Epithelial Cells (Auto) 10-20 /lpf (0-5) H 03/12/23 Urine Bacteria (Auto) Negative (Negative) 03/12/23 Blood Type B Positive 03/12/23 Antibody Screen NEGATIVE 03/12/23 Testing Electrocardiogram Date: 03/05/23 SB with sinus arrhythmia at 47bpm LVH with secondary ST changes When compared to EKG from Oct 06, 2021- no significant changes were found Chest X-Ray Date: 03/12/23 Findings: + NAD
[2023-03-28] MEDS ORDERED: LR 500ML BOLUS, THEN 15ML/HR IV SCH (06:00)
[2023-03-28] MEDS ORDERED: ceFAZolin 2000MG 2,000 MG/15 ML SYR IV SCH (06:00)
[2023-03-28] MEDS ORDERED: TRANEXAMIC ACID 1,000 MG **IV Pre-op IV SCH (06:00)
[2023-03-28] MEDS ORDERED: LR 60ML/HR IV SCH (06:00)
[2023-03-28] MEDS ORDERED: ROPIVACAINE 0.5% HCL/PF 150 MG, BUPIVACAINE 0.75% MPF 20 ML, EPINEPHrine 0.15 MG, Ketor... INFIL SCH (06:00)
[2023-03-28] MEDS ORDERED: BUPIVACAINE 0.5 % 5 MG/1 ML PF 10ML VIAL ONE (06:24)
--- NOTE | 2023-03-28 06:26 | History & Physical Bridge Note ---
Date of Service March 28, 2023 History & Physical Bridge Note I have examined the patient, reviewed the History & Physical and in the interval since the performance of the History & Physical I have noted the following changes of clinical significance: consent and site verified.no changes noted
[2023-03-28] MEDS ORDERED: MIDAZOLAM HCL 1 MG/ML 2ML VIAL ONE ×2 (06:34→06:39)
[2023-03-28] MEDS ORDERED: PROPOFOL IV EMULSION 10 MG/ML 20 ML VIAL IV ONE (06:35)
[2023-03-28] MEDS ORDERED: ORTHO JOINT ANESTHETIC ONE (06:49)
[2023-03-28] MEDS ORDERED: fentaNYL citrate PF 100 MCG/2 ML VIAL ONE ×2 (07:31→08:40)
[2023-03-28] MEDS ORDERED: ROCURONIUM BROMIDE 10 MG/ML 5 ML VIAL IV ONE ×10 (07:34→08:19)
[2023-03-28] MEDS ORDERED: LIDOCAINE 2% 2 ML VIAL/AMP(20MG/ML) INFIL ONE (07:34)
[2023-03-28] MEDS ORDERED: PROMETHAZINE HCL 12.5 MG in SODIUM CHLORIDE 0.9% 50 ML IV PRN (07:42)
[2023-03-28] MEDS ORDERED: HYDROmorphone INJ 2 MG/ML SYR/VIAL IV PRN (07:42)
[2023-03-28] MEDS ORDERED: ONDANSETRON INJ 2 MG/ML 2 ML VIAL IV PRN ×2 (07:42→10:11)
[2023-03-28] MEDS ORDERED: fentaNYL citrate PF 100 MCG/2 ML VIAL IV PRN (07:42)
[2023-03-28] MEDS ORDERED: ATROPINE SULFATE 0.1 MG/ML 10ML SYR IV PRN (07:42)
[2023-03-28] MEDS ORDERED: ePHEDrine sulfate 50 MG/ML AMP IV PRN (07:42)
[2023-03-28] MEDS ORDERED: HYDROmorphone INJ 2 MG/ML SYR/VIAL ONE (08:12)
[2023-03-28] MEDS ORDERED: ONDANSETRON INJ 2 MG/ML 2 ML VIAL ONE (08:17)
[2023-03-28] MEDS ORDERED: DEXAMETHASONE SOD INJ 4 MG/ML VIAL ONE (08:17)
[2023-03-28] MEDS ORDERED: SUGAMMADEX SODIUM 200 MG/2 ML VIAL IV ONE (08:32)
[2023-03-28] MEDS ORDERED: TRANEXAMIC ACID 100 MG/ML 10 ML VIAL IV ONE (08:44)
--- NOTE | 2023-03-28 08:47 | Post Operative Brief Note ---
Immediate Post Op Note v1 Date of Surgery March 28, 2023 Pre & Post Diagnosis Operation Date: 03/28/23 07:00 <No data on this case meets the specified criteria> I identified the patient and participated in the time-out.: Yes Procedure Operation Date: 03/28/23 07:00 <No data on this case meets the specified criteria> Surgeon Brandon Hayes MD Wallpaper Installer Misa/Karthik Estimated Blood Loss 200 Findings Consistent with Post-Op Diagnosis Severe DJD Anesthesia Type General Complications None
--- NOTE | 2023-03-28 08:51 | Operative Report ---
Post Operative Report Pre & Post Diagnosis Osteoarthritis left hip preop diagnosis Osteoarthritis left hip postop diagnosis Operation Date: 03/28/23 07:00 <No data on this case meets the specified criteria> I identified the patient and participated in the time-out.: Yes Procedure Noncemented left total replacement Operation Date: 03/28/23 07:00 <No data on this case meets the specified criteria> Surgeon Brandon Hayes MD Biztalk Consultant Misa/Karthik Estimated Blood Loss 200 Findings Consistent with Post-Op Diagnosis Severe DJD Fluids See anesthesia report Specimens Bone pathology Drains None Complications None Indications Severe pain Description of Procedure Patient Probiata bite site verify consent provide antibiotics from his been given the patient was placed in right lateral decubitus position left lower extremity prepped and draped use routine fashion. Posterior approach the hip was made. Sharp section carried through skin blunt dissection down to fascia this was incised under direct vision Charnley retractor was placed care taken protect the sciatic nerve. Retractor placed underneath the abductors and retracted the short external rotators were then identified and released and preserved. The capsule was then teed and preserved hip was then dislocated the femoral neck resected. The head neck removed. Retractors placed anteriorly over the acetabulum and posteriorly over the acetabulum inferiorly over the acetabulum care taken back to sciatic nerve labrum that was degenerated was then removed. Serial reaming was carried out. There was significant calcification of the transverse acetabular ligament osteophytes this was all resected. Reaming up to 50 to 50 cup was then impacted in appropriate inclination and anteversion and secured with additional 6.5x25 screw with excellent purchase. Trial liner was seated. The femur was then flexed internally rotated proximal femur. With the box spinner lateralizing rest serial broaching up to a size 4. Trial reduction with a +5 head and the leg lengths relatively equal. It was very stable in all planes. The hip was then dislocated all remaining trial and once removed wound irrigated with Betadine Pulsavac whole limb interceded liner seated stem and head seated hip reduced and was stable in all planes leg lengths were excellent. Wounds irrigated 1 final time and closed with #2 Vicryl for the capsule for the short external rotators the IT band for the deep fat and then 2- 0 Vicryl to superficial fat and subcutaneous layer and then stainless to clips for skin. Ortho mix was injected into the incision superficially. Wound was then appropriately closed with rosi and dressed appropriately. Patient was transferred to cover in satisfactory addition he tolerated the procedure well. Crystalloid per anesthesia EBL 200 cc bone pathology pending DVT prophylaxis per protocol. Summary of implants size 50 acetabular shell sector cup: Meter 6.5x25 screw 32x15 neutral liner for high offset Tri-Lock 32+5 ceramic head these are all J J&J/DePuy Synthes implants. I attest to the content of the Intraoperative Record and any orders documented therein. Any exceptions are noted below.
--- NOTE | 2023-03-28 09:15 | Operative Report ---
Post Operative Report Pre & Post Diagnosis Operation Date: 03/28/23 07:00 Pre-Op Diagnosis: Left Hip Degenerative Joint Disease Post-Op Diagnosis: Left Hip Degenerative Joint Disease I identified the patient and participated in the time-out.: Yes Procedure Operation Date: 03/28/23 07:00 Actual Procedures p Left Total Hip Arthroplasty(Left) - Brandon Hayes MD Surgeon JANICE Hayes MD Meat Products Demonstrator Misa/Karthik Estimated Blood Loss 200 Findings Consistent with Post-Op Diagnosis see operative report Specimens see operative report Drains none Complications none Disposition Accompanied Patient To Recovery: Yes Indications This 82 year old female presented to the office with complaints of persisting left hip pain. She had tried conservative care measures without improvement. She elected to proceed with surgical intervention after being educated about potential risks and outcomes. Preoperative imaging was obtained. Description of Procedure The patient was taken to the operating room where she was given general anesthesia. She was prepped and draped in the usual sterile fashion. Please see Dr. Hayes's operative report for specifics of the procedure. I was present for the entire case from initial patient positioning through final wound closure. Assistance was provided in tissue retraction, hemostasis, trial implant placement, final implant placement, and final wound closure. The patient was taken to the recovery room in satisfactory condition. I attest to the content of the Intraoperative Record and any orders documented therein. Any exceptions are noted below.
--- NOTE | 2023-03-28 09:18 | Orthopedic Progress Note ---
Date of Service March 28, 2023 Subjective Status post noncemented left total hip replacement. Patient is resting comfortably in bed. She denies any chest pain shortness of breath fever chills nausea vomiting or headache. Vital signs are stable she is afebrile. Wound dressing clean dry and intact. Femoral sciatic nerve is intact. Postop x-ray looks excellent. Assessment doing well status post total replacement left noncemented continue with care pathway. Results & Data Vital Signs (Past 12 Hours) Vital Signs Temp Pulse Resp BP Pulse Ox O2 Del Method 03/28/23 05:31 Room Air, CPAP 03/28/23 05:31 36.7 C 52 L 18 121/65 97 Room Air, CPAP
--- NOTE | 2023-03-28 09:21 | Operative Report ---
Post Operative Report Pre & Post Diagnosis Operation Date: 03/28/23 07:00 Pre-Op Diagnosis: Left Hip Degenerative Joint Disease Post-Op Diagnosis: Left Hip Degenerative Joint Disease I identified the patient and participated in the time-out.: Yes Procedure Operation Date: 03/28/23 07:00 Actual Procedures p Left Total Hip Arthroplasty(Left) - Brandon Hayes MD Surgeon Brandon Hayes MD Medical Insurance Coder Misa/Karthik Estimated Blood Loss 200 Findings Consistent with Post-Op Diagnosis Same as post-operative diagnosis. Specimens None Description of Procedure See detailed operative note. I attest to the content of the Intraoperative Record and any orders documented therein. Any exceptions are noted below.
--- NOTE | 2023-03-28 09:22 | Discharge Summary ---
Date of Service March 28, 2023 Admission HPI Per Admitting Provider Osteoarthritis left hip Principal Diagnosis Status post left total replacement Discharge Data Allergies Allergy/AdvReac Type Severity Reaction Status Date / Time lisinopril Allergy Severe Hives Verified 03/28/23 05:28 nitrofurantoin Allergy Severe Hives Verified 03/28/23 05:28 [From Macrobid] Consultations None Procedures Performed Operation Date: 03/28/23 07:00 Actual Procedures p Left Total Hip Arthroplasty(Left) - Brandon Hayes MD Ordered Studies None Hospital Course (1) Status post left hip replacement: continue care pathway Plan Continue with care pathway status post left total replacement Total Time Total Time Spent Total Time Spent (In Minutes): 10 Discharge Plan Discharge Items Patient Disposition: Home - Home Health Services Reason For Visit: Left Hip Degenerative Joint Disease Discharge Diagnosis: Status post left total replacement Condition on Discharge: Good Activity: Per Instructions section Lifting: Wait until after follow-up appointment Bathing: Keep incision dry Sexual Activity: Wait until after follow-up appointment Exercise/Sports: Wait until after follow-up appointment Driving/Machine Use: Can drive when off narcotics Weightbearing: Full weightbearing Non-emergency contact: Surgeon Call non-emergency contact if: you have any medication questions, your pain is not controlled, your temperature is above 101.5, your wound has increased redness and your wound pain has increased Follow-up/Referrals: Bridget Silvestre CRNP [Primary Care Provider] - Diet: Heart Healthy Addtl Attending Provider Instructions: New Medicine: * You will likely be taking one or more of these medicines: 1. Percocet - Take, as directed, when you need it, every four to six hours to control your pain. 2. Iron Sulfate - Take three times each day for the month after surgery to help you replace the blood lost during surgery. 3. Coumadin - Thins your blood to lessen the chance of forming a blood clot. The dose of this is different for each person and is based on your blood tests that are done twice a week. * The most common side effects of pain medicine and iron are nausea and constipation. If nausea or constipation is too much of a problem or if you have any questions about your new medicines or doses, call [facility] at . We will try to help you manage these issues. "VERY IMPORTANT TO READ AND REVIEW" Blood Clots and Blood Thinning Medicine: * You are given Coumadin during the immediate post-operative period to lessen the risk of blood clots forming in your legs and/or lungs. Coumadin is usually given for six weeks after surgery. * The prescription is for 2 mg tablets. At discharge, you should understand your dose and take it all at the same time every day, preferably after dinner. * You need to get your blood checked 1 - 2 times per week for six weeks, or as directed. * If your dose needs to change, we will call you. Do not take your medication on the day of the blood test until we call you. * If you don't hear from us after your blood draws, keep taking the same dose. Pain: * The immediate post-operative period after hip replacement surgery is often quite painful. * You are given a prescription for pain medicine. You should take it, as directed, when you need it, especially before physical therapy and before going to bed. Pain that interferes with sleep is very common and can last several months. * You will likely need pain medicine for the first two to four weeks. It will not stop all of the pain. The pain will lessen and as you feel better, you may change to milder pain medicine such as Tylenol. * The most common side effects of pain medicine are nausea and constipation, so don't take more than you need. Physical Therapy: * Follow the "Hip Precautions Instructions." * In some cases, the social work associate at the hospital will arrange to have a therapist come to your house for the first couple of weeks to help you learn these skills. * You need to practice on your own or with the help of a family member as needed. * When you learn these skills, most of the therapy can be done on your own. Home Exercise: * You were shown a series of exercises in the hospital. Do these exercises three to four times each day including the exercises you were shown in physical therapy. Walking: * Get up and walk several times each day. For the first four weeks, try not to stand or walk for more than one hour at a time. If you do stand or walk for more than one hour, you will not hurt anything, but your leg will likely swell. * As you feel comfortable, you may change from the walker or crutches to a cane and then to independent walking. SELF CARE INSTRUCTIONS AFTER TOTAL HIP REPLACEMENT Until the incision and soft tissues around your hip have healed, there is a poss ibility that the hip prosthesis could dislocate. A. Observe the following precautions to prevent dislocation: 1. Don't bend your hip greater than 90 degrees. 2. Avoid crossing your legs or ankles while standing or lying. 3. Sit with your feet placed 6 inches apart. 4. When sitting, keep your knees below your hips. Sit on a firm surface, avoid deep, soft chairs and couches. Use an elevated toilet seat in the bathroom. 5. Don't bend over at the waist. Use a long handled shoehorn and a sock aid to help you put on your shoes and socks. A drilling supervisor can help you pickling grader objects that are too high or too low to reach. 6. Keep car riding to a minimum for at least one month after surgery. B. Your balance may be shaky for a while. Use crutches or a walker until directed by your doctor. C. Use hand rails when walking on stairs. D. Wear low heeled shoes with non-slip soles. E. Be sure that your floors are free of things that could trip you - throw rugs, electrical cords, small objects. Avoid wet and waxed floors, especially with crutches and canes. F. Try to walk several times a day with rest periods between. G. Continue with all the exercises taught to you in the hospital. Again, make walking a part of your daily routine. VERY IMPORTANT TO READ AND REVIEW A. Take Coumadin, or Lovenox (blood thinning medications) as directed by your doctor. If you are on Coumadin, have a pro-time (blood test) drawn according to your doctor's instructions. This will tell the doctor how well the Coumadin is thinning your blood. B. There are a few signs you need to watch for after you are home. If you notice any of the followin. Increased severe hip pain. Some pain is expected especially when you exercise. 2. Increased swelling in your leg or knee; pain or swelling of the calf muscle in either lower leg. 3. Any fluid drainage from the incision. 4. Shortness of breath or chest pain. TEDs/Elastic Stockings: * The white elastic stockings help limit swelling and prevent blood clots from forming in your legs. The more you wear them, the more they work. * Wear them for six weeks. Prevention of Infection: * Take antibiotics one hour before any dental cleaning, dental work, urological procedure, gastrointestinal procedure or any invasive surgery in order to prevent your new joint from getting infected. * You may get the antibiotics from the doctor performing the procedure or we will call in a prescription to the pharmacy of your choice. Call the office for a prescription at least 2 days prior to your appointment. Things to Watch For: * Drainage from the incision site that occurs more than one week after your surgery. * Severely increased leg pain or swelling. * Increased redness at the incision site. * Fever above 101 degrees Fahrenheit. * Unusual chest pain or shortness of breath. * Unusual pain or burning with urination. Please take Coumadin 4 mg (2 tablets) on Sunday, Sunday, and Sunday, and have your blood rechecked on Sunday. Use your walker when ambulating. Apply ice to the hip frequently to reduce pain and swelling Follow-up in the office on April 12 at 1 PM with Danish for staple removal Use the wedge pillow between your legs when sleeping Pending Studies at Discharge: Yes Studies:: Bone pathology Stand-Alone Forms: My [facility] [employer] Light[employer], Smoking Cessation Medications and DC Order Prescriptions: No Action amlodipine 10 mg tablet 10 mg PO QAM chlorthalidone 25 mg Tablet 25 mg PO QAM turmeric 400 mg Capsule 800 mg PO QAM glucosamine bryant 2KCl-chondroit [Glucosamine-Chondroitin 3X Str] 750-600 mg Tablet 2 tab PO QAM exemestane [Aromasin] 25 mg Tablet 25 mg PO QAM Rx Instructions: must administer after a meal naproxen sodium [Aleve] 220 mg Capsule 220 mg PO QAM potassium chloride 10 mEq Tablet Extended Release 10 meq PO WK oxybutynin chloride 5 mg Tablet Extended Release 24hr 5 mg PO DAILY PRN (Reason: urinary discomfort) acetaminophen [Tylenol Ex Str Arthritis Pain] 500 mg Tablet 500 mg PO Q6H PRN (Reason: Pain) Admission Data Admit Date/Time: 03/28/23 09:12 Attending Provider: Brandon Hayes Admit Provider: Brandon Hayes Primary Care Provider: Bridget Silvestre Other Providers: [facility],[employer]
--- NOTE | 2023-03-28 09:28 | XRay Report ---
XR pelvis 1-2V routine HISTORY: 82 years-old Female S/P L BEULAH left hip arthroplasty COMPARISON: 09/26/2022 TECHNIQUE: AP view of the pelvis FINDINGS: Unremarkable appearance of the right hip arthroplasty. Left hip arthroplasty demonstrates satisfactor y alignment. Lateral skin rosi are present along with expected postoperative soft tissue swelling and deep tissue air. No acute fracture or unexpected opaque foreign body. IMPRESSION: Left hip arthroplasty with expected postoperative changes. ACT 112: Negative or not required by law. The above report was generated using voice recognition software. It may contain grammatical, syntax o r spelling errors. Electronically signed by: Reji Tam M.D. 03/28/2023 9:27 AM
--- NOTE | 2023-03-28 10:10 | Anesthesiology Progress Note ---
Date of Service March 28, 2023 Anesthesia Post Procedure Vital Signs Vital Signs: Temp Pulse Pulse Resp BP Pulse Ox O2 Del Method 03/28/23 09:30 67 15 140/60 96 Nasal Cannula 03/28/23 09:20 69 15 136/68 99 Nasal Cannula 03/28/23 09:40 57 L 12 125/63 96 Nasal Cannula 03/28/23 09:10 66 15 149/60 H 95 Nasal Cannula 03/28/23 10:00 36.6 C 58 L 17 129/60 95 Nasal Cannula 03/28/23 09:50 65 16 128/74 95 Nasal Cannula 03/28/23 09:03 36.5 C 67 10 L 131/63 97 Oxymask 03/28/23 05:31 Room Air, CPAP 03/28/23 05:31 36.7 C 52 L 18 121/65 97 Room Air, CPAP O2 Flow Rate 03/28/23 09:30 3 03/28/23 09:20 3 03/28/23 09:40 3 03/28/23 09:10 3 03/28/23 10:00 2 03/28/23 09:50 2 03/28/23 09:03 3 03/28/23 05:31 03/28/23 05:31 Pain Intensity Left Hip: Pain Intensity: 2 Transfer of Care Handoff Completed per policy Notes Mental Status: alert / awake / arousable and participated in evaluation Patient Amnestic to Procedure: Yes Nausea / Vomiting: adequately controlled Pain: adequately controlled Airway Patency, RR, SpO2: stable & adequate BP & HR: stable & adequate Hydration State: stable & adequate Anesthetic Complications: no major complications apparent
[2023-03-28] MEDS ORDERED: oxyCODONE HCL IR 5 MG TAB (IMMEDIATE RELEASE) PO PRN (10:11)
[2023-03-28] MEDS ORDERED: OXYBUTYNIN CHLORIDE XL 5 MG TABCR PO PRN (10:11)
[2023-03-28] MEDS ORDERED: bisacodyL 10 MG SUPP PR PRN (10:11)
[2023-03-28] MEDS ORDERED: ALUMINUM/MAGNESIUM SUSP 30 ML UDC PO PRN (10:11)
[2023-03-28] MEDS ORDERED: VANCOMYCIN CONSULT ACTIVE PRN (10:11)
[2023-03-28] MEDS ORDERED: NALOXONE HCL 0.4 MG/1 ML VIAL/CARP IV PRN (10:11)
[2023-03-28] MEDS ORDERED: HYDROmorphone INJ 0.5 MG/0.5 ML SYR IV PRN (10:11)
[2023-03-28] MEDS ORDERED: METOCLOPRAMIDE HCL INJ 5 MG/ML 2 ML VIAL IV PRN (10:11)
[2023-03-28] MEDS ORDERED: diphenhydrAMINE 50 MG/ML VIAL IV PRN (10:11)
[2023-03-28] MEDS ORDERED: SODIUM CHLORIDE 0.9% 1000ML 1,000 ML IV SCH (10:11)
[2023-03-28] MEDS ORDERED: MAGNESIUM HYDROXIDE SUSP 30 ML UDC PO PRN (10:11)
[2023-03-28] MEDS ORDERED: TRANEXAMIC ACID / 0.7% NACL 1000MG/100ML BAG IV ONE (10:44)
[2023-03-28] MEDS: KETOROLAC TROMETHAMINE 15 MG/ML VIAL IV SCH ×3 (12:30→23:14)
[2023-03-28] MEDS ORDERED: ORTHO WARFARIN NOMOGRAM SCH (14:00)
--- NOTE | 2023-03-28 14:14 | Orthopedic Progress Note ---
Date of Service March 28, 2023 Assessment & Plan Admission and Anticipated Discharge Date Admission Date: March 28, 2023 Subjective Fever chills nausea vomiting or headache. Vital signs are stable she is afebrile eating and drinking well we will saline lock IV fluid. Get out of bed. We will have her get out of bed. Status post noncemented left total hip replacement. Patient is resting comfor tably in bed. She denies any chest pain shortness of breath fever chills nausea vomiting or headache. Vital signs are stable she is afebrile. Wound dressing clean dry and intact. Femoral sciatic nerve is intact. Postop x-ray looks excellent. Assessment doing well status post total replacement left noncemented continue with care pathway. Results & Data Vital Signs (Past 12 Hours) Vital Signs Temp Pulse Pulse Resp BP BP Pulse Ox 03/28/23 12:10 36.5 C 62 16 106/60 99 03/28/23 13:15 36.5 C 56 L 18 111/68 96 03/28/23 11:10 36.5 C 56 L 16 134/71 97 03/28/23 10:40 36.6 C 54 L 16 115/70 100 03/28/23 10:11 03/28/23 10:12 36.5 C 56 L 16 111/76 94 03/28/23 09:30 67 15 140/60 96 03/28/23 09:20 69 15 136/68 99 03/28/23 09:40 57 L 12 125/63 96 03/28/23 09:10 66 15 149/60 H 95 03/28/23 10:00 36.6 C 58 L 17 129/60 95 03/28/23 09:50 65 16 128/74 95 03/28/23 09:03 36.5 C 67 10 L 131/63 97 03/28/23 05:31 03/28/23 05:31 36.7 C 52 L 18 121/65 97 O2 Del Method O2 Flow Rate 03/28/23 12:10 Room Air 03/28/23 13:15 Nasal Cannula 2 03/28/23 11:10 Room Air 03/28/23 10:40 Nasal Cannula 2 03/28/23 10:11 Nasal Cannula 2 03/28/23 10:12 Nasal Cannula 2 03/28/23 09:30 Nasal Cannula 3 03/28/23 09:20 Nasal Cannula 3 03/28/23 09:40 Nasal Cannula 3 03/28/23 09:10 Nasal Cannula 3 03/28/23 10:00 Nasal Cannula 2 03/28/23 09:50 Nasal Cannula 2 03/28/23 09:03 Oxymask 3 03/28/23 05:31 Room Air, CPAP 03/28/23 05:31 Room Air, CPAP
[2023-03-28] MEDS: ACETAMINOPHEN 500 MG TAB PO SCH ×2 (14:23→21:07)
[2023-03-28] MEDS ORDERED: TRANEXAMIC ACID / 0.7% NACL 1,000 MG/100 ML BAG IV SCH (15:15)
[2023-03-28] MEDS: ceFAZolin 2000MG 2,000 MG/15 ML SYR IV SCH ×2 (15:17→23:13)
[2023-03-28] MEDS ORDERED: WARFARIN SOD 5 MG TAB PO ONE (16:00)
[2023-03-28] MEDS: FERROUS GLUCONATE 324 MG TAB PO SCH (16:24)
[2023-03-28] MEDS: ASCORBIC ACID 500 MG TAB PO SCH (16:25)
[2023-03-28] MEDS ORDERED: VANCOMYCIN HCL 1,500 MG in SODIUM CHLORIDE 0.9% 500 ML IV ONE (19:15)
[2023-03-28] MEDS ORDERED: SENNA 8.6 MG TAB PO SCH (21:00)
[2023-03-28] MEDS: DOCUSATE SODIUM 100 MG CAP PO SCH (21:07)
--- NOTE | 2023-03-29 05:23 | Discharge Summary ---
Date of Service March 28, 2023 Principal Diagnosis S/P L BEULAH Discharge Data Allergies Allergy/AdvReac Type Severity Reaction Status Date / Time lisinopril Allergy Severe Hives Verified 03/28/23 05:28 nitrofurantoin Allergy Severe Hives Verified 03/28/23 05:28 [From Macrobid] Procedures Performed Operation Date: 03/28/23 07:00 Actual Procedures p Left Total Hip Arthroplasty(Left) - Brandon Hayes MD Hospital Course (1) Status post left hip replacement: continue care pathway Plan Continue with care pathway status post left total replacement Total Time Total Time Spent Total Time Spent (In Minutes): 2 Discharge Plan Discharge Items Patient Disposition: Home - Home Health Services Reason For Visit: Left Hip Degenerative Joint Disease Discharge Diagnosis: Status post left total replacement Condition on Discharge: Good Activity: Per Instructions section Lifting: Wait until after follow-up appointment Bathing: Keep incision dry Sexual Activity: Wait until after follow-up appointment Exercise/Sports: Wait until after follow-up appointment Driving/Machine Use: Can drive when off narcotics Weightbearing: Full weightbearing Non-emergency contact: Surgeon Call non-emergency contact if: you have any medication questions, your pain is not controlled, your temperature is above 101.5, your wound has increased redness and your wound pain has increased Follow-up/Referrals: Bridget Silvestre CRNP [Primary Care Provider] - Diet: Heart Healthy Addtl Attending Provider Instructions: New Medicine: * You will likely be taking one or more of these medicines: 1. Percocet - Take, as directed, when you need it, every four to six hours to control your pain. 2. Iron Sulfate - Take three times each day for the month after surgery to help you replace the blood lost during surgery. 3. Coumadin - Thins your blood to lessen the chance of forming a blood clot. The dose of this is different for each person and is based on your blood tests that are done twice a week. * The most common side effects of pain medicine and iron are nausea and cons tipation. If nausea or constipation is too much of a problem or if you have any questions about your new medicines or doses, call [facility] at . We will try to help you manage these issues. "VERY IMPORTANT TO READ AND REVIEW" Blood Clots and Blood Thinning Medicine: * You are given Coumadin during the immediate post-operative period to lessen the risk of blood clots forming in your legs and/or lungs. Coumadin is usually given for six weeks after surgery. * The prescription is for 2 mg tablets. At discharge, you should understand your dose and take it all at the same time every day, preferably after dinner. * You need to get your blood checked 1 - 2 times per week for six weeks, or as directed. * If your dose needs to change, we will call you. Do not take your medication on the day of the blood test until we call you. * If you don't hear from us after your blood draws, keep taking the same dose. Pain: * The immediate post-operative period after hip replacement surgery is often quite painful. * You are given a prescription for pain medicine. You should take it, as directed, when you need it, especially before physical therapy and before going to bed. Pain that interferes with sleep is very common and can last several months. * You will likely need pain medicine for the first two to four weeks. It will not stop all of the pain. The pain will lessen and as you feel better, you may change to milder pain medicine such as Tylenol. * The most common side effects of pain medicine are nausea and constipation, so don't take more than you need. Physical Therapy: * Follow the "Hip Precautions Instructions." * In some cases, the manager social responsibility at the hospital will arrange to have a therapist come to your house for the first couple of weeks to help you learn these skills. * You need to practice on your own or with the help of a family member as needed. * When you learn these skills, most of the therapy can be done on your own. Home Exercise: * You were shown a series of exercises in the hospital. Do these exercises three to four times each day including the exercises you were shown in physical therapy. Walking: * Get up and walk several times each day. For the first four weeks, try not to stand or walk for more than one hour at a time. If you do stand or walk for more than one hour, you will not hurt anything, but your leg will likely swell. * As you feel comfortable, you may change from the walker or crutches to a cane and then to independent walking. SELF CARE INSTRUCTIONS AFTER TOTAL HIP REPLACEMENT Until the incision and soft tissues around your hip have healed, there is a possibility that the hip prosthesis could dislocate. A. Observe the following precautions to prevent dislocation: 1. Don't bend your hip greater than 90 degrees. 2. Avoid crossing your legs or ankles while standing or lying. 3. Sit with your feet placed 6 inches apart. 4. When sitting, keep your knees below your hips. Sit on a firm surface, avoid deep, soft chairs and couches. Use an elevated toilet seat in the bathroom. 5. Don't bend over at the waist. Use a long handled shoehorn and a sock aid to help you put on your shoes and socks. A quality technician fiberglass can help you pharmacy picking tech objects that are too high or too low to reach. 6. Keep car riding to a minimum for at least one month after surgery. B. Your balance may be shaky for a while. Use crutches or a walker until directed by your doctor. C. Use hand rails when walking on stairs. D. Wear low heeled shoes with non-slip soles. E. Be sure that your floors are free of things that could trip you - throw rugs, electrical cords, small objects. Avoid wet and waxed floors, especially with crutches and canes. F. Try to walk several times a day with rest periods between. G. Continue with all the exercises taught to you in the hospital. Again, make walking a part of your daily routine. VERY IMPORTANT TO READ AND REVIEW A. Take Coumadin, or Lovenox (blood thinning medications) as directed by your doctor. If you are on Coumadin, have a pro-time (blood test) drawn according to your doctor's instructions. This will tell the doctor how well the Coumadin is thinning your blood. B. There are a few signs you need to watch for after you are home. If you notice any of the followin. Increased severe hip pain. Some pain is expected especially when you exercise. 2. Increased swelling in your leg or knee; pain or swelling of the calf muscle in either lower leg. 3. Any fluid drainage from the incision. 4. Shortness of breath or chest pain. TEDs/Elastic Stockings: * The white elastic stockings help limit swelling and prevent blood clots from forming in your legs. The more you wear them, the more they work. * Wear them for six weeks. Prevention of Infection: * Take antibiotics one hour before any dental cleaning, dental work, urological procedure, gastrointestinal procedure or any invasive surgery in order to prevent your new joint from getting infected. * You may get the antibiotics from the doctor performing the procedure or we will call in a prescription to the pharmacy of your choice. Call the office for a prescription at least 2 days prior to your appointment. Things to Watch For: * Drainage from the incision site that occurs more than one week after your surgery. * Severely increased leg pain or swelling. * Increased redness at the incision site. * Fever above 101 degrees Fahrenheit. * Unusual chest pain or shortness of breath. * Unusual pain or burning with urination. Please take Coumadin 4 mg (2 tablets) on Sunday, Sunday, and Sunday, and have your blood rechecked on Sunday. Use your walker when ambulating. Apply ice to the hip frequently to reduce pain and swelling Follow-up in the office on April 12 at 1 PM with Danish for staple removal Use the wedge pillow between your legs when sleeping Pending Studies at Discharge: Yes Studies:: Bone pathology Stand-Alone Forms: [facility], Smoking Cessation Medications and DC Order Prescriptions: No Action amlodipine 10 mg tablet 10 mg PO QAM chlorthalidone 25 mg Tablet 25 mg PO QAM turmeric 400 mg Capsule 800 mg PO QAM glucosamine bryant 2KCl-chondroit [Glucosamine-Chondroitin 3X Str] 750-600 mg Tablet 2 tab PO QAM exemestane [Aromasin] 25 mg Tablet 25 mg PO QAM Rx Instructions: must administer after a meal naproxen sodium [Aleve] 220 mg Capsule 220 mg PO QAM potassium chloride 10 mEq Tablet Extended Release 10 meq PO WK oxybutynin chloride 5 mg Tablet Extended Release 24hr 5 mg PO DAILY PRN (Reason: urinary discomfort) acetaminophen [Tylenol Ex Str Arthritis Pain] 500 mg Tablet 500 mg PO Q6H PRN (Reason: Pain) Admission Data Admit Date/Time: 03/28/23 09:12 Attending Provider: Brandon Hayes Admit Provider: Brandon Hayes Primary Care Provider: Bridget Silvestre Other Providers: [facility]
[2023-03-29] MEDS: ACETAMINOPHEN 500 MG TAB PO SCH (06:03)
[2023-03-29] MEDS: KETOROLAC TROMETHAMINE 15 MG/ML VIAL IV SCH (06:03)
--- NOTE | 2023-03-29 06:17 | Orthopedic Progress Note ---
Date of Service March 29, 2023 Assessment & Plan (1) Status post left hip replacement: Plan: continue care pathway Plan Continue with care pathway status post left total replacement Admission and Anticipated Discharge Date Admission Date: March 28, 2023 Subjective Postop day #1 status post left total placement. She denies any chest pain shortness of breath fever chills nausea vomiting or headache. Vital signs are stable she is afebrile. Neurovascular check femoral sciatic nerve is normal. She is getting out of bed and walking to the bathroom just fine. A.m. labs are pending. Assessment doing well plan is to discharge home today after PT OT and dressing change. DVT prophylaxis per protocol. Fever chills nausea vomiting or headache. Vital signs are stable she is afebrile eating and drinking well we will saline lock IV fluid. Get out of bed. We will have her get out of bed. Status post noncemented left total hip replacement. Patient is resting comfortably in bed. She denies any chest pain shortness of breath fever chills nausea vomiting or headache. Vital signs are stable she is afebrile. Wound dressing clean dry and intact. Femoral sciatic nerve is intact. Postop x-ray looks excellent. Assessment doing well status post total replacement left noncemented continue with care pathway. Results & Data Vital Signs (Past 12 Hours) Vital Signs Temp Pulse Resp BP Pulse Ox O2 Del Method 03/29/23 04:04 36.6 C 52 L 16 106/59 L 94 Room Air 03/28/23 23:15 36.4 C L 60 16 106/61 95 Room Air 03/28/23 19:50 36.4 C L 63 18 104/63 95 Room Air
[2023-03-29 07:14] LABS: BUN Creatinine Ratio 23.2 (10-20); Calcium 9.1 mg/dl (8.6-10.3); Creatinine Clr Calc Pharmacy 45.4 ml/min; Est GFR (African American) 53.7 ml/min; Est GFR (Non-African American) 46.4 ml/min; Potassium 3.3 mmol/L (3.5-5.1)
[2023-03-29 07:27] LABS: Basophils # (auto) 0.02 K/uL (0-0.2); Basophils % (auto) 0.2 %; Eosinophils # (auto) 0.01 K/uL (0-0.50); Eosinophils % (auto) 0.1 %; Hematocrit (blood only) 34.9 % (37.0-47.0); Hemoglobin 11.5 g/dl (12.0-16.0); Immature Granulocytes # (auto) 0.04 K/uL (0.01-0.20); Immature Granulocytes % (auto) 0.3 %; Lymphocytes # (auto) 1.35 K/uL (1.2-3.4); Lymphocytes % (auto) 10.5 %; Mean Corpuscular Hemoglobin 28.4 pg (25.0-34.0); Mean Corpuscular Volume 86.2 fL (80.0-100.0); Mean Platelet Volume 12.1 fL (9.4-12.4); Monocytes # (auto) 0.87 K/uL (0.11-0.59); Monocytes % (auto) 6.8 %; Neutrophils # (auto) 10.55 K/uL (1.40-6.50); Neutrophils % (auto) 82.1 %; Platelet Count 237 K/uL (130-400); RDW Coefficient of Variation 13.7 % (11.5-14.5); RDW Standard Deviation 43.6 fL (36.4-46.3); Red Blood Count 4.05 M/uL (4.20-5.40); White Blood Count 12.84 K/ul (4.8-10.8)
[2023-03-29 07:30] LABS: Prothrombin Time 11.4 Seconds (9.0-12.0)
[2023-03-29] MEDS ORDERED: dexAMETHasone 10 MG in SYRINGE 0 ML IV SCH (08:00)
[2023-03-29] MEDS: ASCORBIC ACID 500 MG TAB PO SCH (08:22)
[2023-03-29] MEDS: FERROUS GLUCONATE 324 MG TAB PO SCH (08:22)
[2023-03-29] MEDS: DOCUSATE SODIUM 100 MG CAP PO SCH (08:22)
--- NOTE | 2023-03-29 08:42 | Orthopedic Progress Note ---
Date of Service March 29, 2023 Assessment & Plan (1) Status post left hip replacement: Plan: The patient was educated regarding today's findings. Conservative care measures were discussed. Her hip dressing was changed today by me. Reinforcement was added distally. If it should bleed through, she will call the office tomorrow for a dressing change. Anticipate discharge to home today after PT/OT. Prescriptions for warfarin and Percocet have been sent to her pharmacy. She will have her INR obtained on Sunday. We will adjust it at that time. Total hip precautions were reviewed. She is to sleep with the wedge pillow between her legs. Ambulate using her walker. Follow-up in the office in 2 weeks as scheduled for staple removal. Written discharge instructions have been provided. Admission and Anticipated Discharge Date Admission Date: March 28, 2023 Subjective This 82-year-old female patient is seen today in her room. She is 1 day status post left total hip arthroplasty. She states her pain is controlled. She is in good spirits. She denies any chest pain, shortness of breath, nausea, vomiting, or abdominal pain. She has already been out of bed. She feels ready to be discharged to home. Her nurse did note that the patient had some bleeding through her bandage this morning. The patient states she rolled onto her left side when getting out of bed and may have disturbed the dressing. Review of Systems Review of Systems: Unchanged from yesterday. Physical Exam Physical Exam: General: Well-developed, well-nourished, elderly female, in no acute distress. Sitting in a bedside chair. Alert and oriented. Conversive. Skin: Warm and dry with good turgor. No rashes. Postsurgical dressing is in place. There is some bleeding through the layers. Upon removal, her inner bandages are saturated with bloody drainage. She has no ecchymosis or erythema around her surgical incision. Olvin are intact. Wound edges are well approximated. She does have light oozing distally. Musculoskeletal: The patient has supple motion of her left hip. She rises easily from her bedside chair. She has no difficulty standing at bedside using her walker. Intact motor function of the knee and ankle. Neurologic: Gross sensation is intact across the left leg by soft touch. Peripheral pulses are 2+. Results & Data Vital Signs (Past 12 Hours) Vital Signs Temp Pulse Resp BP Pulse Ox O2 Del Method 03/29/23 08:31 36.6 C 53 L 16 112/63 95 Room Air 03/29/23 04:04 36.6 C 52 L 16 106/59 L 94 Room Air 03/28/23 23:15 36.4 C L 60 16 106/61 95 Room Air Laboratory Results CBC obtained this morning shows a white count of 12.84. H&H of 11.5 and 34.9. Platelets 237,000. INR this morning is 1.0. PRP shows sodium 137, potassium 3.3, chloride 103, CO2 25. BUN 26, creatinine 1.12 and glucose 152.
[2023-03-29] MEDS ORDERED: amLODIPine BESYLATE 5 MG TAB PO SCH (09:00)
[2023-03-29] MEDS ORDERED: MULTIVITAMIN TAB PO SCH (09:00)
[2023-03-29] MEDS ORDERED: CHLORTHALIDONE 25 MG TAB PO SCH (09:00)
[2023-04-02] MEDS ORDERED: POTASSIUM CHLORIDE 10 MEQ TABCR PO SCH (09:00)
== END 2023-03-29 14:06 | disposition home health service (06) ==
LOC: 3E 05:08 → ASU 05:08

== ENCOUNTER 2023-09-13 21:42 | Inpatient (IN) ==
[2023-09-13] MEDS ORDERED: SODIUM CHLORIDE 0.9% 500 ML IV STA (21:55)
[2023-09-13] MEDS ORDERED: ONDANSETRON INJ 2 MG/ML 2 ML VIAL IV STA (21:55)
[2023-09-13] MEDS ORDERED: MoRPHine SULFATE 4 MG/ML 1 ML CARP\\VIAL IV STA (22:15)
[2023-09-13 22:33] LABS: Basophils # (auto) 0.03 K/uL (0.00-0.20); Basophils % (auto) 0.4 %; Eosinophils # (auto) 0.02 K/uL (0.00-0.50); Eosinophils % (auto) 0.2 %; Hematocrit (blood only) 49.8 % (37.0-47.0); Hemoglobin 16.2 g/dl (12.0-16.0); Immature Granulocytes # (auto) 0.03 K/uL (0.01-0.20); Immature Granulocytes % (auto) 0.4 %; Lymphocytes % (auto) 19.7 %; Mean Corpuscular Hemoglobin 27.2 pg (25.0-34.0); Mean Corpuscular Hgb Conc 32.5 g/dL (32.0-36.0); Mean Corpuscular Volume 83.7 fL (80.0-100.0); Mean Platelet Volume 11.5 fL (9.4-12.4); Monocytes # (auto) 0.23 K/uL (0.11-0.59); Monocytes % (auto) 2.8 %; Neutrophils # (auto) 6.23 K/uL (1.40-6.50); Neutrophils % (auto) 76.5 %; Platelet Count 317 K/uL (130-400); RDW Coefficient of Variation 14.5 % (11.5-14.5); RDW Standard Deviation 43.9 fL (36.4-46.3); Red Blood Count 5.95 M/uL (4.20-5.40); White Blood Count 8.14 K/ul (4.8-10.8)
[2023-09-13 22:56] LABS: Albumin Globulin Ratio 1.3 (0.9-2); Bilirubin,Total 0.7 mg/dl (0.2-1.0); Calcium 11.3 mg/dl (8.6-10.3); Creatinine Clr Calc Pharmacy 52.7 ml/min; Est GFR (African American) 61.2 ml/min; Est GFR (Non-African American) 52.8 ml/min; Globulin 3.8 gm/dl (2.5-4.0); Potassium 3.2 mmol/L (3.5-5.1); Total Protein 8.8 gm/dl (6.0-8.3)
[2023-09-13 22:59] LABS: INR 0.9 (0.9-1.1); Prothrombin Time 10.4 Seconds (9.0-12.0)
[2023-09-13 23:03] LABS: Troponin I High Sensitivity 5.9 pg/ml (0-14)
--- NOTE | 2023-09-13 23:04 | Emergency Department Note ---
Impression & Plan SBO (small bowel obstruction), Abdominal pain ED Provider Note Provider: Davide Perez MD DATE OF SERVICE: 09/13/2023 CHIEF COMPLAINT: Abdominal pain and vomiting HISTORY OF PRESENT ILLNESS: Patient is a 83-year-old female with a past medical history of breast cancer, hypertension, and diverticulitis presenting here with onset of pain since 4 PM this afternoon. Evidently had a normal day. Had sudden onset lower abdominal pain earlier this evening. Began to have significant nausea or vomiting and now with some upper abdominal pain reported. Quite uncomfortable. No trauma or other sick contacts. Initially thought this may have been diverticulitis and started to take Mylanta when the pain started. Pain does not really radiate to the back. 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 PAST MEDICAL HISTORY: As noted above MEDICATIONS: Reviewed home medication list SOCIAL HISTORY: PHYSICAL EXAM: GENERAL: alert and oriented appears uncomfortable, and son at bedside Head: normocephalic and atraumatic EYES: No injection, discharge or icterus. NECK: Trachea midline. ENT: Mucous membranes pink and moist. LUNGS: Airway patent. No retractions. Breath sounds clear HEART: Regular rate and rhythm. No chest wall tenderness ABDOMEN: Soft some lower abdominal discomfort. SKIN: Acyanotic, warm, dry, without rashes EXTREMITIES: Without swelling, tenderness or deformity NEUROLOGICAL: No focal deficits. No aphasia. No facial droop or slurred speech. EK bpm sinus bradycardia. No PVC or PAC. No acute ST segment elevation or depression with some nonspecific T wave inversions QTc per the computer of 550 ms I think is a little bit exaggerated. CONTINUOUS CARDIAC MONITORING: was ordered and showed a heart rate of 50s-60s bpm in normal sinus rhythm to sinus bradycardia Patient's laboratory studies and imaging reviewed. Differential includes Appendicitis, infections, diverticulitis, UTI, obstruction, mesenteric ischemia, aortic pathology, inflammatory bowel disease, renal colic, PUD, pancreatitis, biliary pathology, hernia, volvulus, constipation, as well as other pathologies. IMPRESSION/MEDICAL DECISION MAKING: Given her significant nausea we will trial 1 dose of Zofran and given IV fluids and morphine. Blood work obtained without significant leukocytosis. Slight hypokalemia but no significant renal dysfunction. Lactate minimally elevated 2.3. No evidence of significant LFT abnormalities and doubt hepatitis or pancreatitis. EKG and troponin were completed but seems atypical for chest discomfort. Sent for CT scan of the abdomen pelvis to refer intra-abdominal pathology. On reassessment the patient as well as more comfortable after the morphine. Blood work surprisingly is without real severe abnormalities given the significant pain she was having upon presentation. CT scan of the abdomen pelvis per radiology questions possibly early bowel obstruction without evidence of diverticulitis or acute appendicitis. Liver and renal cyst noted. Patient again much more comfortable without abdominal pain or nausea at this time. Will bring into the hospital for observation. Low threshold for NG tube however at the current time given her improved pain and abdominal exam this time do not believe she requires surgical intervention and we will hold on NG tube placement at this time. Patient and family updated and agreeable. IV magnesium and potassium supplementation ordered. Hospitalist contacted. DIAGNOSIS: SBO, abdominal pain, hypokalemia DISPOSITION: Hospitalist will evaluate Patient was agreeable with this plan. 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 No additional intracranial aneurysms. History of COVID-19 06/2022 asymptomatic Osteoarthritis Diverticular disease History of breast cancer Dx'd January 2021 - Rt breast - treated surgically (lumpectomy) Cardiac murmur Follows with Dr. Rawls. Since childhood - with PSH Sleep apnea CPAP HTN (hypertension) Obesity (BMI 35.0-39.9 without comorbidity) GI bleed Years ago Surgical History (Updated 03/29/23 @ 05:21 by Brandon Hayes MD) History of colonoscopy History of surgery on left wrist Status post hip replacement Right History of total knee replacement (TKR) bilateral History of ultrasound guided needle biopsy (12/13/20) Right Breast History of lumpectomy (01/21/21) Right Lane-vesical fistula hx surgical repair Family History Father No problems noted. Mother No problems noted. Son No problems noted. Son No problems noted. Son No problems noted. 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 How many Children do You have: 3 Feels Safe at Home: Yes Childhood Exposure to Second-Hand Smoke: No Diet: other and regular Diet Comment: Nutri System caffeine: No during the past year weight has: decreased > 10 lbs Dental Care, Regularly: Yes Assistive Devices: CPAP and Glasses Allergies Allergies Allergy/AdvReac Type Severity Reaction Status Date / Time lisinopril Allergy Severe Hives Verified 09/13/23 23:05 nitrofurantoin Allergy Severe Hives Verified 09/13/23 23:05 [From Macrobid] Home Meds Home Medications Medication Instructions Recorded Confirmed chlorthalidone 25 mg tablet 25 mg PO QAM 02/23/19 09/13/23 amlodipine 10 mg tablet 10 mg PO QAM 03/22/21 09/13/23 exemestane 25 mg tablet (Aromasin) 25 mg PO QAM 08/30/22 09/13/23 oxybutynin chloride 5 mg 5 mg PO DAILY PRN urinary 03/16/23 09/13/23 tablet,extended release 24 hr discomfort acetaminophen 500 mg tablet 500 - 1,000 mg PO Q6H PRN Pain 03/28/23 09/13/23 turmeric 400 mg capsule 0 mg PO DAILY 09/13/23 09/13/23 Results & Data (ED) Vital Signs Vital Signs - 24 hr 09/13/23 21:48 09/13/23 22:09 09/13/23 22:12 Temperature 36.7 C Temperature Source Oral Pulse Rate 61 Pulse Rate [Apical] 59 L Respiratory Rate 20 14 Respiratory Effort / Characteristics Non-Labored Non-Labored Spontaneous Respiratory Depth Normal Normal Blood Pressure 179/88 H Blood Pressure [Left Arm] 199/84 H Blood Pressure Mean 118 Blood Pressure Mean [Left Arm] 122 Pulse Oximetry 98 96 98 Oxygen Delivery Method Room Air Room Air Room Air Sepsis Recent Fever Within 48 Hours No Sepsis New/Unexplained Change in Mental Status No Sepsis Action Taken by Nursing No Action Required 09/13/23 22:20 09/13/23 23:30 09/14/23 00:00 Temperature Temperature Source Pulse Rate 61 56 L 54 L Pulse Rate [Apical] Respiratory Rate 22 18 Respiratory Effort / Characteristics Respiratory Depth Blood Pressure 137/78 145/80 H Blood Pressure [Left Arm] Blood Pressure Mean 97 101 Blood Pressure Mean [Left Arm] Pulse Oximetry 98 96 Oxygen Delivery Method Sepsis Recent Fever Within 48 Hours Sepsis New/Unexplained Change in Mental Status Sepsis Action Taken by Nursing Laboratory Data 09/13/23 22:06 09/13/23 22:06 Lab Results 09/13/23 09/13/23 Range/Units 22:00 22:06 WBC 8.14 (4.8-10.8) K/ul RBC 5.95 H (4.20-5.40) M/uL Hgb 16.2 H (12.0-16.0) g/dl Hct 49.8 H (37.0-47.0) % MCV 83.7 (80.0-100.0) fL MCH 27.2 (25.0-34.0) pg MCHC 32.5 (32.0-36.0) g/dL RDW Std Deviation 43.9 (36.4-46.3) fL RDW Coeff of Tata 14.5 (11.5-14.5) % Plt Count 317 (130-400) K/uL MPV 11.5 (9.4-12.4) fL Immature Gran % (Auto) 0.4 % Neut % (Auto) 76.5 % Lymph % (Auto) 19.7 % [place] % (Auto) 2.8 % Eos % (Auto) 0.2 % Baso % (Auto) 0.4 % Neut # (Auto) 6.23 (1.40-6.50) K/uL Lymph # (Auto) 1.60 (1.20-3.40) K/uL [place] # (Auto) 0.23 (0.11-0.59) K/uL Eos # (Auto) 0.02 (0.00-0.50) K/uL Baso # (Auto) 0.03 (0.00-0.20) K/uL Immature Gran # (Auto) 0.03 (0.01-0.20) K/uL PT 10.4 (9.0-12.0) Seconds INR 0.9 (0.9-1.1) Sodium 138 (136-145) mmol/L Potassium 3.2 L (3.5-5.1) mmol/L Chloride 98 (98-107) mmol/L Carbon Dioxide 27 (21-32) mmol/L Anion Gap 13 H (3-11) BUN 18 (6-23) mg/dl Creatinine 1.00 (0.6-1.2) mg/dl Est Cr Clr Drug Dosing 52.7 ml/min Est GFR ( Amer) 61.2 ml/min Est GFR (Non-Af Amer) 52.8 ml/min BUN/Creatinine Ratio 18.0 (10-20) Glucose 178 H (70-99(Fasting)) mg/dl Lactate 2.3 H* (0.4-2.0) mmol/L Calcium 11.3 H (8.6-10.3) mg/dl Total Bilirubin 0.7 (0.2-1.0) mg/dl AST 18 (13-39) U/L ALT 17 (7-52) U/L Alkaline Phosphatase 87 (34-104) U/L Troponin I High Sens 5.9 (0-14) pg/ml Total Protein 8.8 H (6.0-8.3) gm/dl Albumin 5.0 (3.4-5.0) gm/dl Globulin 3.8 (2.5-4.0) gm/dl Albumin/Globulin Ratio 1.3 (0.9-2) Lipase 20 (11-82) U/L SARS-CoV-2, RNA, NAAT NEGATIVE (NEGATIVE) Administered Medications Magnesium Sulfate/Dextrose (Magnesium Sulfate / D5w) 1 gm in 100 mls @ 200 mls/hr IV Q30M [facility] Stop: 09/14/23 01:14 Last Admin: 09/14/23 00:28 Dose: 200 mls/hr Documented By: DARRELL Potassium Chloride (K Steven / Wtr) 10 meq in 100 mls @ 100 mls/hr IV Q1H [facility] Stop: 09/14/23 02:14 Last Admin: 09/14/23 00:28 Dose: 100 mls/hr Documented By: DARRELL Discontinued Medications Sodium Chloride (Nss) 500 mls @ 999 mls/hr IV .Q31M STA Stop: 09/13/23 22:25 Last Infusion: 09/13/23 23:39 Dose: Infused Documented By: Admin: 09/13/23 22:11 Dose: 999 mls/hr Documented By: GILMA Ioversol (Optiray 320 500ml) 100 ml IV ONCE ONE Stop: 09/13/23 23:14 Last Admin: 09/13/23 23:13 Dose: 86 ml Documented By: JAENLLE Morphine Sulfate (Morphine Sulfate 4 Mg/Ml 1 Ml Carp\Vial) 4 mg IV NOW STA Stop: 09/13/23 22:16 Last Admin: 09/13/23 22:19 Dose: 4 mg Documented By: CARLTON Ondansetron HCl (Ondansetron Inj 2 Mg/Ml 2 Ml Vial) 4 mg IV NOW STA Stop: 09/13/23 21:56 Last Admin: 09/13/23 22:19 Dose: 4 mg Documented By: CARLTON Imaging Data Radiologist's Impression: Abdomen/Pelvis CT 09/13/23 21:56 Exam(s): CT ABDOMEN + PELVIS With Contrast IV Amt: 86 ML OPTIRAY 320 EXAM: CT Abdomen and Pelvis With Intravenous Contrast CLINICAL HISTORY: Reason for exam: abd pain, vomiting. TECHNIQUE: Axial computed tomography images of the abdomen and pelvis with intravenous contrast. CTDI is 26.84 mGy and DLP is 1282.59 mGy-cm. Automated exposure control was utilized for the study. A dose lowering technique was utilized adhering to the principles of ALARA. CONTRAST: Patient received 86 ML OPTIRAY 320 of IV contrast COMPARISON: 07/02/2019. FINDINGS: Lung bases: Mild bilateral lower lobe atelectasis. Heart: Mild cardiomegaly. ABDOMEN: Liver: Multiple low-attenuation structures within the liver, largest seen in the left liver lobe measuring 17.6 mm compatible with liver cysts. Gallbladder and bile ducts: Unremarkable. No calcified stones. No ductal dilation. Pancreas: Unremarkable. No mass. No ductal dilation. Spleen: Unremarkable. No splenomegaly. Adrenals: Unremarkable. No mass. Kidneys and ureters: Small low-attenuation structures within the bilateral kidneys, the largest on the right measuring 8 mm in largest the left measuring 13 mm most compatible with liver cysts, some too small to actually characterize. Otherwise normal bilateral kidneys. Stomach and bowel: Multiple loops of small bowel distended up to 2.7 cm, which may indicate very early or mild obstruction versus ileus. The transverse and descending colon are decompressed and therefore difficult to assess. Diverticulosis throughout the colon more so to the descending portion and sigmoid with no signs of diverticulitis. PELVIS: Appendix: Normal appendix . Bladder: Unremarkable. No mass. Reproductive: Anteverted uterus . ABDOMEN and PELVIS: Intraperitoneal space: Unremarkable. No free air. No significant fluid collection. Bones/joints: Bilateral hip prostheses obscuring surrounding detail and pelvic structures. No acute fracture. No dislocation. Soft tissues: Small fat-containing umbilical hernia. Vasculature: Calcified at the spine disease of aorta with no aneurysm or dissection. Lymph nodes: Unremarkable. No enlarged lymph nodes. IMPRESSION: 1. Possible early small bowel obstruction with exact zone of transition indeterminate and likely at the mid proximal ileum or distal jejunum. No acute appendicitis. Diverticulosis with no signs of diverticulitis may 2. Liver and bilateral renal cysts, with no further follow-up imaging recommended. Remainder of abdominal viscera are unremarkable. Electronically signed by: Soha Zhao MD 09/13/23 23:45 PM Discharge Plan Visit Data Chief Complaint: Vomiting Stated Complaint: ABDOMINAL PAIN, VOMITING ED Provider: Davide Perez Discharge Problem: SBO (small bowel obstruction), Abdominal pain Patient Disposition: Being Evaluated by Hospitalist Forms Stand Alone Forms: On License Of [facility] Prescriptions Prescriptions: No Action amlodipine 10 mg tablet 10 mg PO QAM chlorthalidone 25 mg Tablet 25 mg PO QAM exemestane [Aromasin] 25 mg Tablet 25 mg PO QAM Rx Instructions: must administer after a meal oxybutynin chloride 5 mg Tablet Extended Release 24hr 5 mg PO DAILY PRN (Reason: urinary discomfort) acetaminophen 500 mg Tablet 500 - 1,000 mg PO Q6H PRN (Reason: Pain) turmeric 400 mg Capsule 0 mg PO DAILY Referrals Referrals: Bridget Silvestre CRNP [Primary Care Provider] -
[2023-09-13] MEDS ORDERED: OPTIRAY 320 500ml IV ONE (23:13)
--- NOTE | 2023-09-13 23:45 | CT Scan Report ---
Exam(s): CT ABDOMEN + PELVIS With Contrast IV Amt: 86 ML OPTIRAY 320 EXAM: CT Abdomen and Pelvis With Intravenous Contrast CLINICAL HISTORY: Reason for exam: abd pain, vomiting. TECHNIQUE: Axial computed tomography images of the abdomen and pelvis with intravenous contrast. CTDI is 26.84 mGy and DLP is 1282.59 mGy-cm. Automated exposure control was utilized for the study. A dose lowering technique was utilized adhering to the principles of ALARA. CONTRAST: Patient received 86 ML OPTIRAY 320 of IV contrast COMPARISON: 07/02/2019. FINDINGS: Lung bases: Mild bilateral lower lobe atelectasis. Heart: Mild cardiomegaly. ABDOMEN: Liver: Multiple low-attenuation structures within the liver, largest seen in the left liver lobe measuring 17.6 mm compatible with liver cysts. Gallbladder and bile ducts: Unremarkable. No calcified stones. No ductal dilation. Pancreas: Unremarkable. No mass. No ductal dilation. Spleen: Unremarkable. No splenomegaly. Adrenals: Unremarkable. No mass. Kidneys and ureters: Small low-attenuation structures within the bilateral kidneys, the largest on the right measuring 8 mm in largest the left measuring 13 mm most compatible with liver cysts, some too small to actually characterize. Otherwise normal bilateral kidneys. Stomach and bowel: Multiple loops of small bowel distended up to 2.7 cm, which may indicate very early or mild obstruction versus ileus. The transverse and descending colon are decompressed and therefore difficult to assess. Diverticulosis throughout the colon more so to the descending portion and sigmoid with no signs of diverticulitis. PELVIS: Appendix: Normal appendix . Bladder: Unremarkable. No mass. Reproductive: Anteverted uterus . ABDOMEN and PELVIS: Intraperitoneal space: Unremarkable. No free air. No significant fluid collection. Bones/joints: Bilateral hip prostheses obscuring surrounding detail and pelvic structures. No acute fracture. No dislocation. Soft tissues: Small fat-containing umbilical hernia. Vasculature: Calcified at the spine disease of aorta with no aneurysm or dissection. Lymph nodes: Unremarkable. No enlarged lymph nodes. IMPRESSION: 1. Possible early small bowel obstruction with exact zone of transition indeterminate and likely at the mid proximal ileum or distal jejunum. No acute appendicitis. Diverticulosis with no signs of diverticulitis may 2. Liver and bilateral renal cysts, with no further follow-up imaging recommended. Remainder of abdominal viscera are unremarkable. Electronically signed by: Soha Zhao MD 09/13/23 23:45 PM
[2023-09-14] MEDS: POTASSIUM CHLORIDE / WTR 10 MEQ/100 ML PLCT IV SCH ×4 (00:28→04:13)
[2023-09-14] MEDS: MAGNESIUM SULFATE / D5W 1 GM/100 ML BAG IV SCH ×2 (00:28→01:13)
--- NOTE | 2023-09-14 00:50 | History & Physical Report ---
Date of Service September 14, 2023 Assessment & Plan (1) SBO (small bowel obstruction): Plan: 83yo female presenting with acute onset abdominal pain and tightness with multiple episodes of vomiting. CT of the abdomen as above with concern for early SBO. Patient is improved now after Morphine. -Admit to medical -Maintain NPO -Gentle IVF with LR at 80mL/hr x 1L -Morphine PRN pain -Zofran PRN nausea -KUB in the AM -Electroltye repletion - Mg 2gm given, K repletion. Repeat BMP in the AM -General Surgery consultation in the AM if patient's symptoms persist (2) Aortic stenosis: Plan: Mild to moderate per echo 04/2022 - AV peak velocity 2.91m/s. STEVE 1cm2 -Monitor volume status (3) Sleep apnea: Plan: Chronic. Patient reports compliance with CPAP at home -Continue CPAP qhs (4) HTN (hypertension): Plan: Chronic. Blood pressure presently 145/80 -Continue Amlodipine 10mg po daily -Continue Chlorthalidone 25mg po qAM -Monitor History of Present Illness Chief Complaint: abdominal pain Primary Care Provider: ADELINA Rico Ramonita Gonzalez is a pleasant 83yo female with history of , TRENT on CPAP, HTN and Diverticulitis presenting with abdominal pain. Patient reports that she felt well most of the day. She went to [employer] for a luncheon and had pasta and park cheesecake. Around 16:00 she developed some upper abdominal pain and firmness of the abdomen. She reports that her "belly button felt hard". She developed nausea with multiple episodes of non-bloody vomiting that was ongoing for hours. She had progression of her abdominal pain which prompted her to come to the ER. She feels that her abdomen has softened. She had a lot of belching and is passing a very small amount of gas rectally. Pain improved after Morphine. Nausea has resolved. In the ER she is afebrile, HD stable ER Course: Magnesium 2 gm KCl 10mEq Morphine 4mg IV Zofran 4mg IV NSS x 500mL Allergies Allergy/AdvReac Type Severity Reaction Status Date / Time lisinopril Allergy Severe Hives Verified 09/13/23 23:05 nitrofurantoin Allergy Severe Hives Verified 09/13/23 23:05 [From Macrobid] Home Medications Medication Instructions Recorded Confirmed Type chlorthalidone 25 mg tablet 25 mg PO QAM 02/23/19 09/13/23 History amlodipine 10 mg tablet 10 mg PO QAM 03/22/21 09/13/23 History exemestane 25 mg tablet (Aromasin) 25 mg PO QAM 08/30/22 09/13/23 History oxybutynin chloride 5 mg 5 mg PO DAILY PRN urinary 03/16/23 09/13/23 History tablet,extended release 24 hr discomfort acetaminophen 500 mg tablet 500 - 1,000 mg PO Q6H PRN Pain 03/28/23 09/13/23 History turmeric 400 mg capsule 0 mg PO DAILY 09/13/23 09/13/23 History Past Med/Surg History Medical History (Updated 09/14/23 @ 01:28 by Luann Harrington DO) HTN (hypertension) Aortic stenosis Mild to moderate per 04/2022 ECHO Carotid artery aneurysm Per head MRA 12/09/21= No change in a 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 No additional intracranial aneurysms. History of COVID-19 06/2022 asymptomatic Osteoarthritis Diverticular disease History of breast cancer Dx'd January 2021 - Rt breast - treated surgically (lumpectomy) Cardiac murmur Follows with Dr. Rawls. Since childhood - with PSH Sleep apnea CPAP Obesity (BMI 35.0-39.9 without comorbidity) GI bleed Years ago Surgical History History of colonoscopy History of surgery on left wrist Status post hip replacement Right History of total knee replacement (TKR) bilateral History of ultrasound guided needle biopsy (12/13/20) Right Breast History of lumpectomy (01/21/21) Right Minier-vesical fistula hx surgical repair Family History Father No problems noted. Mother No problems noted. Son No problems noted. Son No problems noted. Son No problems noted. 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 How many Children do You have: 3 Feels Safe at Home: Yes Childhood Exposure to Second-Hand Smoke: No Diet: other and regular Diet Comment: Nutri System caffeine: No during the past year weight has: decreased > 10 lbs Dental Care, Regularly: Yes Assistive Devices: CPAP and Glasses Review of Systems Review of Systems: All systems reviewed & are unremarkable except as noted in HPI & below Physical Exam Physical Exam: General: patient resting comfortably, NAD, non-toxic in appearance, AA&O x 4 Skin: warm, dry, intact, no rashes or lesions HEENT: NC/AT, PERRL, EOMI, anicteric sclera, conjunctiva without injection, external ear normal to inspection and nontender, nares patent, moist mucus membranes, dentition intact, no oropharyngeal lesions, neck supple, trachea midline, no LAD, no thyromegaly, no JVD Heart: +S1/S2, regular, bradycardic, 3/6 ALEX across precordium, no rubs/gallops Lungs: equal air entry bilaterally, no rales/rhonchi/wheezes Abd: diminished bowel sounds, soft, NT/ND Ext: warm, 2+ pulses in UE/LE bilaterally, no clubbing/cyanosis or edema Neuro: nonfocal, patient AA&O x 4, speech intact, no facial droop, moving all extremities on command with equal strength 5/5 Results & Data Results & Data Vital Signs (Past 12 Hours) Vital Signs Temp Pulse Pulse Resp BP BP Pulse Ox 09/14/23 00:00 54 L 18 145/80 H 96 09/13/23 23:30 56 L 22 137/78 98 09/13/23 22:20 61 09/13/23 22:12 98 09/13/23 22:09 59 L 14 199/84 H 96 09/13/23 21:48 36.7 C 61 20 179/88 H 98 O2 Del Method 09/14/23 00:00 09/13/23 23:30 09/13/23 22:20 09/13/23 22:12 Room Air 09/13/23 22:09 Room Air 09/13/23 21:48 Room Air Laboratory Results Laboratory Results WBC 8.14 K/ul (4.8-10.8) 09/13/23 22:06 RBC 5.95 M/uL (4.20-5.40) H 09/13/23 22:06 Hgb 16.2 g/dl (12.0-16.0) H 09/13/23 22:06 Hct 49.8 % (37.0-47.0) H 09/13/23 22:06 MCV 83.7 fL (80.0-100.0) 09/13/23 22:06 MCH 27.2 pg (25.0-34.0) 09/13/23 22:06 MCHC 32.5 g/dL (32.0-36.0) 09/13/23 22:06 RDW Std Deviation 43.9 fL (36.4-46.3) 09/13/23 22:06 RDW Coeff of Tata 14.5 % (11.5-14.5) 09/13/23 22:06 Plt Count 317 K/uL (130-400) 09/13/23 22:06 MPV 11.5 fL (9.4-12.4) 09/13/23 22:06 Immature Gran % (Auto) 0.4 % 09/13/23 22:06 Neut % (Auto) 76.5 % 09/13/23 22:06 Lymph % (Auto) 19.7 % 09/13/23 22:06 Lamb % (Auto) 2.8 % 09/13/23 22:06 Eos % (Auto) 0.2 % 09/13/23 22:06 Baso % (Auto) 0.4 % 09/13/23 22:06 Neut # (Auto) 6.23 K/uL (1.40-6.50) 09/13/23 22:06 Lymph # (Auto) 1.60 K/uL (1.20-3.40) 09/13/23 22:06 Lamb # (Auto) 0.23 K/uL (0.11-0.59) 09/13/23 22:06 Eos # (Auto) 0.02 K/uL (0.00-0.50) 09/13/23 22:06 Baso # (Auto) 0.03 K/uL (0.00-0.20) 09/13/23 22:06 Immature Gran # (Auto) 0.03 K/uL (0.01-0.20) 09/13/23 22:06 PT 10.4 Seconds (9.0-12.0) 09/13/23 22:06 INR 0.9 (0.9-1.1) 09/13/23 22:06 Sodium 138 mmol/L (136-145) 09/13/23 22:06 Potassium 3.2 mmol/L (3.5-5.1) L 09/13/23 22:06 Chloride 98 mmol/L (98-107) 09/13/23 22:06 Carbon Dioxide 27 mmol/L (21-32) 09/13/23 22:06 Anion Gap 13 (3-11) H 09/13/23 22:06 BUN 18 mg/dl (6-23) 09/13/23 22:06 Creatinine 1.00 mg/dl (0.6-1.2) 09/13/23 22:06 Est Cr Clr Drug Dosing 52.7 ml/min 09/13/23 22:06 Est GFR ( Amer) 61.2 ml/min 09/13/23 22:06 Est GFR (Non-Af Amer) 52.8 ml/min 09/13/23 22:06 BUN/Creatinine Ratio 18.0 (10-20) 09/13/23 22:06 Glucose 178 mg/dl (70-99(Fasting)) H 09/13/23 22:06 Lactate 2.3 mmol/L (0.4-2.0) H* 09/13/23 22:06 Calcium 11.3 mg/dl (8.6-10.3) H 09/13/23 22:06 Total Bilirubin 0.7 mg/dl (0.2-1.0) 09/13/23 22:06 AST 18 U/L (13-39) 09/13/23 22:06 ALT 17 U/L (7-52) 09/13/23 22:06 Alkaline Phosphatase 87 U/L (34-104) 09/13/23 22:06 Troponin I High Sens 5.9 pg/ml (0-14) 09/13/23 22:06 Total Protein 8.8 gm/dl (6.0-8.3) H 09/13/23 22:06 Albumin 5.0 gm/dl (3.4-5.0) 09/13/23 22:06 Globulin 3.8 gm/dl (2.5-4.0) 09/13/23 22:06 Albumin/Globulin Ratio 1.3 (0.9-2) 09/13/23 22:06 Lipase 20 U/L (11-82) 09/13/23 22:06 SARS-CoV-2, RNA, NAAT NEGATIVE (NEGATIVE) 09/13/23 22:00 Impressions Abdomen/Pelvis CT 09/13/23 21:56 Exam(s): CT ABDOMEN + PELVIS With Contrast IV Amt: 86 ML OPTIRAY 320 EXAM: CT Abdomen and Pelvis With Intravenous Contrast CLINICAL HISTORY: Reason for exam: abd pain, vomiting. TECHNIQUE: Axial computed tomography images of the abdomen and pelvis with intravenous contrast. CTDI is 26.84 mGy and DLP is 1282.59 mGy-cm. Automated exposure control was utilized for the study. A dose lowering technique was utilized adhering to the principles of ALARA. CONTRAST: Patient received 86 ML OPTIRAY 320 of IV contrast COMPARISON: 07/02/2019. FINDINGS: Lung bases: Mild bilateral lower lobe atelectasis. Heart: Mild cardiomegaly. ABDOMEN: Liver: Multiple low-attenuation structures within the liver, largest seen in the left liver lobe measuring 17.6 mm compatible with liver cysts. Gallbladder and bile ducts: Unremarkable. No calcified stones. No ductal dilation. Pancreas: Unremarkable. No mass. No ductal dilation. Spleen: Unremarkable. No splenomegaly. Adrenals: Unremarkable. No mass. Kidneys and ureters: Small low-attenuation structures within the bilateral kidneys, the largest on the right measuring 8 mm in largest the left measuring 13 mm most compatible with liver cysts, some too small to actually characterize. Otherwise normal bilateral kidneys. Stomach and bowel: Multiple loops of small bowel distended up to 2.7 cm, which may indicate very early or mild obstruction versus ileus. The transverse and descending colon are decompressed and therefore difficult to assess. Diverticulosis throughout the colon more so to the descending portion and sigmoid with no signs of diverticulitis. PELVIS: Appendix: Normal appendix . Bladder: Unremarkable. No mass. Reproductive: Anteverted uterus . ABDOMEN and PELVIS: Intraperitoneal space: Unremarkable. No free air. No significant fluid collection. Bones/joints: Bilateral hip prostheses obscuring surrounding detail and pelvic structures. No acute fracture. No dislocation. Soft tissues: Small fat-containing umbilical hernia. Vasculature: Calcified at the spine disease of aorta with no aneurysm or dissection. Lymph nodes: Unremarkable. No enlarged lymph nodes. IMPRESSION: 1. Possible early small bowel obstruction with exact zone of transition indeterminate and likely at the mid proximal ileum or distal jejunum. No acute appendicitis. Diverticulosis with no signs of diverticulitis may 2. Liver and bilateral renal cysts, with no further follow-up imaging recommended. Remainder of abdominal viscera are unremarkable. Electronically signed by: Soha Zhao MD 09/13/23 23:45 PM PG Care Time/CCT Total # of Minutes Spent Total Time Spent with Patient: Total time spent is greater than 50% in coordination of care (as documented) at patient's floor/unit and/or counseling patient: Coding Level of Care Code 25849 INT INP/OBS CARE 2/55MIN Diagnoses SBO (small bowel obstruction) K56.609 Aortic stenosis I35.0 Sleep apnea G47.30 HTN (hypertension) I10
[2023-09-14] MEDS ORDERED: MoRPHine SULFATE 4 MG/ML 1 ML CARP\\VIAL IV PRN (02:18)
[2023-09-14] MEDS ORDERED: MoRPHine SULFATE 2 MG/ML CARP IV PRN (02:18)
[2023-09-14] MEDS ORDERED: ONDANSETRON INJ 2 MG/ML 2 ML VIAL IV PRN (02:18)
[2023-09-14] MEDS ORDERED: POTASSIUM CHLORIDE 20 MEQ in LACTATED RINGER'S 1,000 ML IV SCH (03:00)
--- NOTE | 2023-09-14 07:22 | Hospitalist Progress Note ---
Date of Service September 14, 2023 Assessment & Plan (1) SBO (small bowel obstruction): Plan: 83yo female presenting with acute onset abdominal pain and tightness with multiple episodes of vomiting. CT of the abdomen as above with concern for early SBO. Patient is improved now after Morphine. -allow clear liquids -Gentle IVF with LR at 80mL/hr x 1L -Morphine PRN pain -Zofran PRN nausea -KUB in the AM -Electrolyte repletion - Mg 2gm given, K repletion. Repeat BMP in the AM -symptoms improved, did have history of previous colo vesicular fistulae repair, (2) Aortic stenosis: Plan: Mild to moderate per echo 04/2022 - AV peak velocity 2.91m/s. STEVE 1cm2 -Monitor volume status (3) Sleep apnea: Plan: Chronic. Patient reports compliance with CPAP at home -Continue CPAP qhs (4) HTN (hypertension): Plan: Chronic. Blood pressure presently 145/80 -Continue Amlodipine 10mg po daily -Continue Chlorthalidone 25mg po qAM Admission and Anticipated Discharge Date Admission Date: September 14, 2023 Subjective pt has improved abdominal pain did have flatus tolerated ice chips and sips KUB looks improved Physical Exam Physical Exam: pt is without complaints cardiac is regular ALEX consistent with her h/o lungs are clear abd is soft and non tender , nabs Results & Data Results & Data Vital Signs (Past 12 Hours) Vital Signs Temp Pulse Pulse Pulse Resp BP BP 09/14/23 07:09 98.1 F 55 L 18 149/76 H 09/14/23 02:15 09/14/23 02:11 97.7 F 66 18 126/64 09/14/23 01:30 54 L 12 141/76 H 09/14/23 01:00 51 L 12 150/71 H 09/14/23 00:00 54 L 18 145/80 H 09/13/23 23:30 56 L 22 137/78 09/13/23 22:20 61 09/13/23 22:12 09/13/23 22:09 59 L 14 199/84 H 09/13/23 21:48 98.1 F 61 20 179/88 H Pulse Ox O2 Del Method 09/14/23 07:09 96 Room Air 09/14/23 02:15 Room Air 09/14/23 02:11 96 Room Air 09/14/23 01:30 95 09/14/23 01:00 97 09/14/23 00:00 96 09/13/23 23:30 98 09/13/23 22:20 09/13/23 22:12 98 Room Air 09/13/23 22:09 96 Room Air 09/13/23 21:48 98 Room Air PG Care Time/CCT Total # of Minutes Spent Total Time Spent with Patient: Total time spent is greater than 50% in coordination of care (as documented) at patient's floor/unit and/or counseling patient: Coding Level of Care Code 08138 SUB INP/OBS CARE 235MIN Diagnoses SBO (small bowel obstruction) K56.609 Aortic stenosis I35.0 Sleep apnea G47.30 HTN (hypertension) I10
[2023-09-14] MEDS: amLODIPine BESYLATE 5 MG TAB PO SCH (07:33)
[2023-09-14] MEDS ORDERED: CHLORTHALIDONE 25 MG TAB PO SCH (09:00)
--- NOTE | 2023-09-14 09:35 | XRay Report ---
KUB HISTORY: Abnormal abdomen and pelvis CT. Possible small bowel obstruction. COMPARISON: Abdomen and pelvis CT 09/13/2023. FINDINGS: The bowel gas pattern is unremarkable. There are no dilated loops of small bowel to suggest an obstruction. No renal calculi. No ureteral calculi. Calcifications in the deep pelvis likely rep resent phleboliths. Contrast within the urinary system is noted from the recent CT examination. There are bilateral total hip arthroplasties. There is mild fecal retention. Degenerative changes within t he lumbar spine. No pneumoperitoneum or pneumatosis. IMPRESSION: No dilated loops of bowel to suggest an obstruction. ACT 112: Negative or not required by law. Electronically signed by: Aníbal Payton M.D. 09/14/2023 9:34 AM
[2023-09-14 11:57] LABS: BUN Creatinine Ratio 17.5 (10-20); Calcium 9.7 mg/dl (8.6-10.3); Est GFR (African American) 80.1 ml/min; Est GFR (Non-African American) 69.1 ml/min; Magnesium 2.2 mg/dl (1.7-2.4); Potassium 3.5 mmol/L (3.5-5.1)
--- OUTSIDE RECORDS SUMMARY | 2023-09-14 15:06 | External Medical Summary | Continuity of Care Document ---
Author Name Unknown Organization [id number] Address [address] [place] [id number] Care Team Providers Care Prosthodontist Name Role Phone Bridget Silvestre Devora Primary Care Physician [phone] Encounter [facility] [id number] Date(s): 05/07/23 - 05/07/23 [facility] [place] [id number] [address] [place] [address] Encounter Diagnosis Status post left hip replacement(Discharge Diagnosis) - 05/07/23 Discharge Disposition: Home or Self Care Attending Physician: MD Hayes Wayne J Allergies, Adverse Reactions, Alerts Substance Reaction Severity Status lisinopril drug rash Active Macrobid rigors Active Immunizations Given and Recorded Vaccine Date Status Refusal Reason influenza virus vaccine, inactivated 06/17/19 Give n pneumococcal 23-valent vaccine 1 03/21/17 Recorded pneumococcal 13-valent vaccine 09/02/15 Given zoster vaccine live 09/29/13 Recorded hepatitis A adult vaccine 08/03/05 Recorded hepatitis A adult vaccine 11/07/04 Recorded tetanus toxoids-diphtheria, Td (Adult) 01/30/96 Re corded tetanus/diphtheria/pertuss, acel (Tdap) 01/12/96 R ecorded tetanus/diphtheria/pertuss, acel (Tdap) 2 01/12/96 Recorded 1Result Comment: 2019-03-03: Historical information-source unspecified 2Result Comment: 2019-03-03: Historical information-source unspecified Medications amLODIPine 10 mg oral tablet Start: 12/25/22 9:30:00 EDT, See Instructions, Disp# 30 tab, Refills: 5, take 1 tablet by mouth once daily, Pharmacy: [facility] #[id number] Start Date: 12/25/22 Status: Ordered Bactrim DS 800 mg-160 mg oral tablet Start: 03/15/23 11:31:00 EDT, 1 tab, PO, bid, Disp# 6 tab, Pharmacy: [facility] #[id number] Start Date: 03/15/23 Stop Date: 03/18/23 Status: Ordered chlorthalidone 25 mg oral tablet Start: 07/10/22 10:14:00 EST, See Instructions, Disp# 90 tab, Refills: 3, take 1 tablet by mouth daily for 90 DAYS, Pharmacy: [facility] #[id number] Start Date: 07/10/22 Status: Ordered exemestane 25 mg oral tablet take 1 tablet by mouth once daily after meals Start Date: 03/15/23 Status: Ordered glucosamine 500 mg oral capsule Start: 11/10/20 11:38:00 EDT, 1 cap, PO, qAM Start Date: 11/10/20 Status: Ordered oxybutynin 5 mg/24 hours oral tablet, extended release Start: 08/04/22 9:28:00 EST, 1 tab, PO, Daily, Disp# 30 tab, Refills: 6, PRN: as needed for urinarydiscomfort, [facility]acy: [facility] #[id number] Start Date: 08/04/22 Stop Date: 03/02/23 Status: Ordered oxyBUTYnin 5 mg/24 hours oral tablet, extended release take 1 tablet by mouth once daily if needed for URINARY DISCOMFORT Start Date: 03/15/23 Status: Ordered Potassium Chloride (Bom-Uuke-Nph 10) 10 mEq oral tablet, extended release take 1 tablet by mouth once daily Start Date: 03/15/23 Status: Ordered turmeric 500 mg oral capsule Start: 11/10/20 11:38:00 EDT, 1 cap, PO, qAM Start Date: 11/10/20 Status: Ordered Mental Status 05/07/23 Barriers to Learning one year None evide nt Mandatory Health Literacy Documentation Yes Health Literacy Communication Barriers N ever Primary Language Kosovan Problem List Condition Confirmation Course Effective Dates Status H ealth Status Informant Bilirubin in urine Confirmed Active Bradycardia Confirmed Active Chest pain Confirmed Active CPAP (continuous positive airway pressure) dependence 1 Confirmed 2000 Active Diverticula of colon Confirmed Active Diverticulosis of sigmoid colon Confirmed Active Shortness of breath Confirmed Active SOB (shortness of breath) on exertion Confirmed Active Dysuria Confirmed Active Esophageal reflux Confirmed Active S/P total knee arthroplasty Confirmed Active History of bilateral knee replacement Confirmed Active Status post left hip replacement Confirmed Active Status post total replacement of right hip Confirmed Active COVID-19 vaccine series completed Confirmed Active HTN (hypertension) Confirmed Active Hyperkalemia Confirmed Active Hypokalemia Confirmed Active Right lumbar radiculopathy Confirmed Active Breast cancer, right breast 2 Confirmed 08/21/22 Active Routine adult health maintenance Confirmed Active Needs flu shot Confirmed Active Hip osteoarthritis Confirmed Active Primary osteoarthritis of left knee Confirmed Active Osteoarthritis of left hip Confirmed Active Left knee DJD Confirmed Active Osteopenia Confirmed Active Orthostatic dizziness Confirmed Active Preop examination Confirmed Active Knee osteoarthritis Confirmed Active Pulmonary HTN Confirmed Active Left shoulder pain Confirmed Active Sleep apnea Confirmed 1999 Active Snores Confirmed Active Varicose veins Confirmed Active Weight disorder Confirmed Active 1nocturnal 03/05/2023 DO Vale Melody A Diagnosis Diagnosis Type Effective Dates Health Status Clinical Service Informant Status post left hip replacement Discharge Diagnosis 05/07/23 Procedures Procedure Date Related Diagnosis Body Site Status Hip replacement 1 03/28/23 Complet ed Colonoscopy 2 09/06/22 Completed Colonoscopy 3 09/06/22 Completed THR - Total hip replacement 2022 Completed Mastectomy of right breast 01/20/22 Completed Ultrasound guided biopsy Rig ht Breast 5, 6, 7 12/13/20 Completed Barium swallow 8 10/19/[address] of abdomen with contrast 9 07/02/19 Completed Colonoscopy 10, 11, 12 02/25/19 Co mpleted Upper GI endoscopy 13 02/25/19 Com pleted Chest X-ray 14 04/29/18 Completed X-ray of cervical spine 15 04/29/18 Completed X-ray of lumbar spine 16 04/29/18 Completed Total knee arthroplasty 17 08/29/17 Completed Sigmoidectomy 2017 Completed DEXA - Dual energy X-ray nae ton absorptiometry 04/19/17 Completed Mammogram 18 04/19/17 Completed Total knee arthroplasty 03/21/17 C ompleted Total hip replacement 05/23/16 Completed Echocardiogram 20 05/16/16 Complet ed Colonoscopy 21 07/15/15 Completed Laparoscopy, closure of blad margarette fistula 2014 Completed colonoscopy 09/29/09 Completed Tubal ligation 1981 Completed Ultrasound guided biopsy 23 Completed Wrist, left, screw were put in Completed 1left hip replacement 2Hemorrhoids found on perianal exam. severe diverticulosis in the entire examined colon. There was evident of diverticular spasm. Erythema was seen in association with the diverticular opening. Internal hemorrhoids. No specimens collected. Repeat colonoscopy is not recommended due to current age for surveillance. 3Findings: Hemorrhoids were found on perianal exam. Mulltiple small and large- mouthed diverticula were found in the entire colon. There was evidence of diverticular spasm. Erythema was seen in association with the diverticular opening. Internal hemmoroids were found during retroflexion. The hemorrhoids were large. No specimen collected. Repeat colonoscopy is not recommended due to current age for surveillance 4left 5amendment 12/21/2021 6amendment 12/21/21 pathology results from bilateral breast biopsies were reviewed on 12/21/2021. Pathology of the right 9:00 breast mass 11cm from the nipple yielded infiltrative carcinoma wiht features of mucinous carcinoma grade 1. pathology results of the right 9:00 breast mass 7cm from the nippleyielded infiltrative cardinoma with features of mucinous carcinoma grade 1. pathology resulsts fromsterotactic biopsy of left breast calcifications showed a fibroadenoma with calcifications. pathology results of right breast biopsies are malignant and concordant with the imaging appearance. Pathology results of the left breast biopsy are benign and concordant. recommend surgical consultation forbiopsy proven malignancy in the right breast. If breast conserving therapy is being considered would recommend contrast enhanced bilateral breast mri to evaluate extent of disease. 7Impression: Status post right breast ultrasound-guided core biopsy of an indeterminate 11 mm mass in the 9:00 right breast, with ribbon-shaped biopsy marker placed at the site. No definitive sonographic correlate seen for a 5.5 mm partially circumscribed mass in the left breast middle depth along the posterior nipple line on the CC view. Therefore will await pathology results from the right breast biopsy. If results are atypical or malignant and warrant surgical excision,would consider left breast tomosynthesis guidecd biopsy versus breast MRI. Amendment: Pathology results from right breast ultrasound-guided core biopsy of an 11 mm lobulatedmass in the 9:00 breast yielded: Invasive mucinous carcinoma, grade 1. Estrogen and progesterone receptor positive, HER -2/raji negative. The pathology results are malignant and concordant with the imaging appearance. A preoperative breast MRI is recommended, particularly to assess the previously described 5 mm partially circumscribed mass in the left 12:00 breast, without sonographic correlate. If MRI is not performed, could also consider left breast tomosynthesis guided biopsy. Surgical consultation is also recommended. 81) Moderate gastroesophageal reflux injury during the examination. 2) Mild espohageal dysmotility. 91. No acute intra-abdominal abnormality identified. 2. Findings suggestive of hepatic steatosis. 3. Colonic diverticulosis without acute diverticulitis. 4. Soft tissue prominence of the cecum redemonstrated which may be secondary to stool maaterial however could be correlated with colonoscopy to exclude underlying lesion. 5. Cardiomegaly. 10Pathology: Ascending colon polypectomy- tubular adenoma, negative for high grade dysplasia. 11Pathology results: Colon, ascending polyp, polypectomy: tubular adenoma, negative for high grade dysplasia. 12Repeat in 5 years. 13Z-linne regular, 40 cm from th eincisors. 1 cm hiatal hernia. Normal stomach. Normal examined duodenum. No specimens collected. 14Negative chest. 15Considerable degenerative change throughout the entire cervical spine. 16Considerable degenerative change throughout the entire lumbar region. No acute process. 17PSSM 18There is no mammographic evidence of malignancy. A 1yr screening is recommended 19non cemented 20stress/dobutamine 21repeat 5 yrs. 22closure of bladder fistula 23ultra sound guided core needle biopsy x 2 of hypoechoic mass in the right 9:00 breast 11 cm from the nipple and hypoechoic mass in the 9:00 breast 7cm from the nipple clip placement. Bilateral diagnostic mmogram post procedure for marker placement new biopsy clips status post bilateral breast biopsies. path results pending . tomosnthesis guided biopsy, stereotactic biopsy of small cluster of calcifications in the left central breast with clip plasement . Social History Social History Type Response Smoking Status Never smoked cigaret basilia Sex Female Ortho Outpt Note * Neeta Louie: PERFORM, MODIFY Event Display: Ortho Outpt Note Authored Date: [id number] Name:LU MOREIRA Patient Number:[id number] :1940 Date of Service:05/07/2023 CHIEF COMPLAINT: Follow-up s/p left BEULAH; DOS: 03/28/2023 HPI: Tee yearoldFearmond presents today forfollow-up s/p left BEULAH.Patient reports she is very pleased with her results. She has no pain with activity or at rest. Shestates she does not need the can for assistance but does so in public in case of emergency. PHYSICAL EXAM: Focus on left lower extremity: Femoral and sciatic nerve function intact. Supple and pain free hip ROM Incision well-healed DIAGNOSTIC REVIEW: I obtained and personally interpreted 2views of the left hip which shows a well-fixed, well-aligned bilateral total hip replacements without evidence of loosening or complication. IMPRESSION:6 weeks s/p left BEULAH PLAN: Discontinue anti-coagulantand iron supplement May resume glucosamine and chondroitin or other joints Reviewed hip precautions She will contact the office if antibiotics needed for dental prophylaxis Follow-up in 3 months ATTESTATION: Neeta Stockton, scribing for and in the presence of, Brandon Hayes, on this date,05/07/2023 14:16:15. Electronic Signature on File Electronically Reviewed/Signed by: Neeta Louie Author Signature Dt/Tm:05/07/2023 02:26 PM Electronically Reviewed/Signed by: Brandon Hayes MD Cosigner Signature Dt/Tm: 05/07/2023 02:26 PM Dimensional Inspector for Clinical Affairs, [facility] [place] Professor in Orthopaedics Electric Spot [employer]der, [facility] Patient Care team information Care Team Personnel Name: Will Florez Amy E Position: Pharmacist Member Role: Pharmacy - Lifetime Address: Address: [address] [address] [place] Name: ADELINA Silvestre Shari A Position: Nurse Pract - Family Med Member Role: Primary Care Provider Address: Address: [address] [place] [address], [place] [address] [place] Name: ADELINA Powell Lorella G Position: Referring DIRECT Member Role: Lifetime Relationship Address: Address: [address] [place] [id number] [place] Care Team Related Persons Name: MARIE STRAUSS Address: home [address] [place] [address], [phone] Name: MIN MOREIRA Address: home [address] [place] [address] [place] [phone] Name: MARIE MOREIRA Address: home [address] [facility], [place] [phone] Name: MARIE MOREIRA Address: [address] [facility] [phone]
--- OUTSIDE RECORDS SUMMARY | 2023-09-14 15:06 | External Medical Summary | Continuity of Care Document ---
Author Name Unknown Organization [facility] [address] Address [address] [place], [place] [id number] Care Team Providers Care Director Of Scout Work Name Role Phone Bridget Silvestre Primary Care Physician [phone] Encounter [facility] [id number] Date(s): 07/18/23 - 07/18/23 [facility] [address] [facility] [address] [facility] [place], [place] [phone] Encounter Diagnosis Impaired fasting glucose(Final) - Essential (primary) hypertension(Final) - Encounter for screening for lipoid disorders(Final) - Discharge Disposition: Home or Self Care Attending Physician: ADELINA Silvestre Shari A Referring Physician: ADELINA Silvestre Shari A Allergies, Adverse Reactions, Alerts Substance Reaction Severity Status lisinopril drug rash Active Macrobid rigors Active Immunizations Given and Recorded Vaccine Date Status Refusal Reason influenza virus vaccine, inactivated 1 06/26/23 Gi carlo influenza virus vaccine, inactivated 06/17/19 Give n pneumococcal 20-valent conjugate vaccine 2 06/26/23 Given pneumococcal 23-valent vaccine 3 03/21/17 Recorded pneumococcal 13-valent vaccine 09/02/15 Given zoster vaccine live 09/29/13 Recorded hepatitis A adult vaccine 08/03/05 Recorded hepatitis A adult vaccine 11/07/04 Recorded tetanus toxoids-diphtheria, Td (Adult) 01/30/96 Re corded tetanus/diphtheria/pertuss, acel (Tdap) 01/12/96 R ecorded tetanus/diphtheria/pertuss, acel (Tdap) 4 01/12/96 Recorded 1Result Comment: Audra Lyon Ma 2Result Comment: Audra Lyon Ma 3Result Comment: 2019-03-03: Historical information-source unspecified 4Result Comment: 2019-03-03: Historical information-source unspecified Medications amLODIPine 10 mg oral tablet Start: 07/16/23 14:27:00 EST, 1 tab, PO, Daily, Disp# 30 tab, Refills: 0, Pharmacy: [facility] #[id number] Start Date: 07/16/23 Status: Ordered Bactrim DS 800 mg-160 mg oral tablet Start: 03/15/23 11:31:00 EDT, 1 tab, PO, bid, Disp# 6 tab, Pharmacy: [facility] #[id number] Start Date: 03/15/23 Stop Date: 03/18/23 Status: Ordered chlorthalidone 25 mg oral tablet Start: 07/10/22 10:14:00 EST, See Instructions, Disp# 90 tab, Refills: 3, take 1 tablet by mouth daily for 90 DAYS, Pharmacy: [facility] #[id number] Start Date: 07/10/22 Status: Ordered exemestane 25 [...] 6, PRN: as needed for urinarydiscomfort, Pharmacy: [facility] #[id number] Start Date: 08/04/22 Stop Date: 03/02/23 Status: Ordered oxyBUTYnin 5 mg/24 hours oral tablet, extended release take 1 tablet by mouth once daily if needed for URINARY DISCOMFORT Start Date: 03/15/23 Status: Ordered Potassium Chloride (Oha-Dwgu-Icp 10) 10 mEq oral tablet, extended release take 1 tablet by mouth once daily Start Date: 03/15/23 Status: Ordered turmeric 500 mg oral capsule Start: 11/10/20 11:38:00 EDT, 1 cap, PO, qAM Start Date: 11/10/20 Status: Ordered Problem List Condition Confirmation Course Effective Dates [...] Active 1nocturnal 03/05/2023 DO Vale Melody A Procedures Procedure Date Related Diagnosis Body Site [...] current age for surveillance 4left 5amendment 12/21/2021 6Impression: Status post right breast ultrasound-guided core biopsy [...] ultrasound-guided core biopsy of an 11 mm lobulated mass in the 9:00 breast yielded: Invasive mucinous [...] guided biopsy. Surgical consultation is also recommended. 7amendment 12/21/21 pathology results from bilateral breast biopsies [...] breast mri to evaluate extent of disease. 81) Moderate gastroesophageal reflux injury during the [...] left central breast with clip plasement . Results Laboratory List Name Date Comprehensive Metabolic Panel (COMP META B PANEL) 07/18/23 Hemoglobin A1C (HEMOGLOBIN, A1C) 07/18/23 Lipid Profile (LIPOPROTEINS) 07/18/23 Most recent to oldest [Reference Range]: 1 eGFR CKD-EPI [>60 mL/min/1.73 m2] 56 mL/ min/1.73 m2 1 *LOW* (07/18/23 1:06 PM) Estimated Average Glucose 148 mg/dL 2 (07/18/23 1:06 PM) Non-HDL 124 mg/dL 3 (07/18/23 1:06 PM) Estimated CrCl 50.10 mL/min (07/18/23 1:52 PM) Anion Gap [5-14 mmol/L] 7 mmol/L (07/18/23 1:06 PM) Alb [3.5-5.0 g/dL] 4.2 g/dL (07/18/23 1:06 PM) Alk Phos [38-126 unit/L] 78 unit/L (07/18/23:06 PM) ALT [<35 unit/L] 22 unit/L (07/18/23:06 PM) AST [15-46 unit/L] 24 unit/L (07/18/23: PM) BUN [7-20 mg/dL] 20 mg/dL (07/18/23: PM) Ca [8.4-10.2 mg/dL] 9.7 mg/dL (07/18/23 1:06 PM) Chol/HDL 3 (07/18/23: PM) Chol [125-200 mg/dL] 176 mg/dL (07/18/23 1:06 PM) Cl- [96-107 mmol/L] 102 mmol/L (07/18/23: PM) HCO3 [22-30 mmol/L] 30 mmol/L (07/18/23: PM) Cret [0.60-1.00 mg/dL] 1.01 mg/dL *HI* (07/18/23 1: PM) HbA1c [4.0-6.0 %] 6.8 % *HI* (07/18/23:06 PM) Glu [74-106 mg/dL] 129 mg/dL *HI* (07/18/23 1:06 PM) HDL [>35 mg/dL] 52 mg/dL (07/18/23 1:06 PM) K [3.5-5.1 mmol/L] 3.5 mmol/L (07/18/23: PM) LDL Chol, Calculated [50-130 mg/dL] 82 m g/dL (07/18/23 1:06 PM) Na [137-145 mmol/L] 139 mmol/L (07/18/23 1:06 PM) T Bili [0.2-1.3 mg/dL] 0.4 mg/dL (07/18/23 1:06 PM) Prot [6.3-8.2 g/dL] 7.8 g/dL (07/18/23 1:06 PM) TG [<200 mg/dL] 208 mg/dL *HI* (07/18/23 1:06 PM) 1Result Comment: Testing Performed By: Dept of Pathology [facility] [address], [address] [facility] [place] [address] 2Result Comment: Testing Performed By: Dept of Pathology [facility] [address], [address] [facility] [place] [address] 3Result Comment: Testing Performed By: Dept of Pathology [facility] [address], [address] [place] [address], [place] [address] Social History Social History Type Response Smoking Status Never smoked cigaret basilia Sex Female Patient Care team information Care Team Personnel Name: Will Florez Amy E Position: Pharmacist Member Role: Pharmacy - Lifetime Address: Address: [address] [address] Name: ADELINA Silvestre Shari A Position: Nurse Pract - Family Med Member Role: Primary Care Provider Address: Address: [address] [place] [address], [place] [address] Name: ADELINA Powell Lorella G Position: Referring DIRECT Member Role: Lifetime Relationship Address: Address: [address] [place] [id number] Care Team Related Persons Name: MARIE STRAUSS Address: home [address] [facility], [phone] Name: MIN MOREIRA Address: home [address] [facility] [place] [phone] Name: MARIE MOREIRA Address: home [address] [facility] [place] [phone] Name: MARIE MOREIRA Address: home [address] [facility], [place] [phone]
--- OUTSIDE RECORDS SUMMARY | 2023-09-14 15:06 | External Medical Summary | Continuity of Care Document ---
Author Name Unknown Organization [place] [address] [address] Address [address] [place], [place] [id number] Care Team Providers Care Dock Boss Name Role Phone Bridget Silvestre Primary Care Physician [phone] [facility] [id number] Date(s): 09/10/23 - 09/10/23 [facility] [address], [address] [place] [address] [phone] Encounter Diagnosis HTN (hypertension)(Discharge Diagnosis) - 09/10/23 Shortness of breath(Discharge Diagnosis) - 09/10/23 Bradycardia(Discharge Diagnosis) - 09/10/23 Aortic stenosis(Discharge Diagnosis) - 09/10/23 Discharge Disposition: Home or Self Care Attending Physician: DO Rawls Jason D Allergies, Adverse Reactions, Alerts Substance Reaction Severity Status lisinopril drug rash Active Macrobid rigors Active Assessment and Plan Extracted from: Title:Cardiology Office Visit Note Author:DO Rawls Jason D Date:09/10/23 1.Bradycardia 2.HTN (hypertension) 3.Shortness of breath 4. Aortic stenosis From my standpoint she is doing remarkably well. Her blood pressure is very well-controlled without any orthostatic symptoms. We discussed avoiding salt as this is going to raise her blood pressure. She remains on amlodipine and a diuretic. She has a soft murmur of aortic stenosis and is known to have mild to moderate disease. We discussed a repeat echo in 6 months just to make sure has not progressed as her previous echo would have been 2 years prior. We know she had a Holter monitor and she was able to get her heart rate above 100 bpm with exercise. This is only one half to watch. She has had chronic sinus bradycardia on no AV nathan blockers. If her dyspnea were to worsen I would consider a stress echo to make sure her heart rate increases appropriately with activity also rule out obstructive coronary artery disease. Will see her back in 6 months time with an echo. Sooner if there are any issues. Immunizations Given and Recorded Vaccine Date Status [...] Medications amLODIPine 10 mg oral tablet Start: 08/14/23 12:09:00 EST, 1 tab, PO, Daily, Disp# 30 tab, Refills: 5, Pharmacy: [facility] #[id number] Start Date: 08/14/23 Status: Ordered chlorthalidone 25 mg oral tablet Start: 07/10/22 10:14:00 EST, See Instructions, Disp# 90 tab, Refills: 3, take 1 tablet by mouth daily for 90 DAYS, Pharmacy: [facility] #[id number] Start Date: 07/10/22 Status: Ordered exemestane 25 mg oral tablet take 1 tablet by mouth once daily after meals Start Date: 03/15/23 Status: Ordered glucosamine 500 mg oral capsule Start: 11/10/20 11:38:00 EDT, 1 cap, PO, qAM Start Date: 11/10/20 Status: Ordered oxyBUTYnin 5 mg/24 hours oral tablet, extended release Start: 08/14/23 12:08:00 EST, 1 tab, PO, Daily, Disp# 30 tab, Refills: 0, PRN: if needed for URINARY DISCOMFORT, Pharmacy: [facility] #[id number] Start Date: 08/14/23 Status: Ordered Potassium Chloride (Gpi-Pvaq-Prq 10) 10 mEq oral tablet, extended release take 1 tablet by mouth 3 days a week Start Date: 03/15/23 Status: Ordered turmeric 500 mg oral capsule Start: 11/10/20 11:38:00 EDT, 1 cap, PO, qAM Start Date: 11/10/20 Status: Ordered Tylenol Start: 09/10/23 13:16:00 EST Start Date: 09/10/23 Status: Ordered Problem List Condition Confirmation Course Effective Dates Status H ealth Status Informant Bilirubin in urine Confirmed Active Bradycardia Confirmed Active Chest pain Confirmed Active CPAP (continuous positive airway pressure) dependence 1 Confirmed 1999 Active Diverticula of colon Confirmed Active Diverticulosis [...] Effective Dates Health Status Clinical Service Informant HTN (hypertension) Discharge Diagnosis 09/10/23 Aortic stenosis Discharge Diagnosis 09/10/23 Non-Specified Bradycardia Discharge Diagnosis 09/10/23 Shortness of breath Discharge Diagnosis 09/10/23 Procedures Procedure Date Related Diagnosis Body Site [...] left central breast with clip plasement . Vital Signs Most recent to oldest [Reference Range]: 1 Patient Weight 94 kg (09/10/23 1:24 PM) Heart Rate 55 bpm (09/10/23 1:24 PM) Blood Pressure 122/60mmHg (09/10/23 1:24 PM) BP Location # 1 Left Arm (09/10/23 1:24 PM) Social History Social History Type Response Smoking Status Never smoked cigaret basilia Sex Female Cardiology Outpatient Note * DO Rawls Jason D: PERFORM Event Display: Cardiology Outpt Note Authored Date: [id number] Primary Care Provider ADELINA Silvestre Shari A Chief Complaint 6 mon f/u htn chol DELGADO bradycardia History of Present Illness Since she was last here she underwent left total hip replacement surgery. She has no more hip discomfort. Her blood pressure has been remarkably well- controlled. She has chronic shortness of breath climbing a flight of stairs or walking a long distance. She denies that it is any worse. She has no chest pain or chest pressure. I did ask her if she thought she could get her heart rate up with activity and noted that she could. She has no lightheadedness with activity. She denies any presyncope or syncope. She has had no falls. She ate ham yesterday and has a little lower extremity edema today. She is tolerating her current medical regimen without any side effects. Review of Systems PAST MEDICAL HISTORY: 1. Bradycardia with an appropriate heart rate response to exercise by stress testing (2018) and holter 10/2022 2. Negative stress echo for ischemia January 2019. 3.ECHO 04/2022 with normal RV and LV function and mild to moderate aortic stenosis and mild aortic insufficiency 4. History of elevated LFTs and rash secondary to lisinopril. 5. Bilateral knee replacement surgery. 6. Diverticulosis. 7. Osteopenia. 8. Varicose veins. 9. Obstructive sleep apnea tolerating CPAP Physical Exam Vitals & Measurements HR:55(Monitored) BP:122/60 SpO2:98% WT:94kg WT:94.000kg(Dosing) HEENT: 2+ carotid upstrokes, normal carotid bruits. Jugular venous pressure appeared normal. Sclerae is anicteric. Hearing is normal. Lungs clear to auscultation bilaterally, no rales, rhonchi or wheezing. Heart regular rate and rhythm. There is a soft systolic ejection murmur at the right sternal border. Extremities: No clubbing, cyanosis or edema. Psychiatric: Her affect appeared appropriate. Assessment/Plan 1.Bradycardia 2.HTN (hypertension) 3.Shortness of breath 4. Aortic stenosis From my standpoint she is doing remarkably well. Her blood pressure is very well-controlled without any orthostatic symptoms. We discussed avoiding salt as this is going to raise her blood pressure. She remains on amlodipine and a diuretic. She has a soft murmur of aortic stenosis and is known to have mild to moderate disease. We discussed a repeat echo in 6 months just to make sure has not progressed as her previous echo would have been 2 years prior. We know she had a Holter monitor and she was able to get her heart rate above 100 bpm with exercise. This is only one half to watch. She has had chronic sinus bradycardia on no AV nathan blockers. If her dyspnea were to worsen I would consider a stress echo to make sure her heart rate increases appropriately with activity also rule out obstructive coronary artery disease. Will see her back in 6 months time with an echo. Sooner if there are any issues. Problem List/Past Medical History Ongoing Bilirubin in urine Bradycardia Breast cancer, right breast Chest pain COVID-19 vaccine series completed CPAP (continuous positive airway pressure) dependence Diverticula of colon Diverticulosis of sigmoid colon Dysuria Esophageal reflux Hip osteoarthritis History of bilateral knee replacement HTN (hypertension) Hyperkalemia Hypokalemia Knee osteoarthritis Left knee DJD Left shoulder pain Needs flu shot Orthostatic dizziness Osteoarthritis of left hip Osteopenia Preop examination Primary osteoarthritis of left knee Pulmonary HTN Right lumbar radiculopathy Routine adult health maintenance S/P total knee arthroplasty Shortness of breath Sleep apnea Snores SOB (shortness of breath) on exertion Status post left hip replacement Status post total replacement of right hip Varicose veins Weight disorder Historical Acute UTI Lightheadedness Procedure/Surgical History Hip replacement (03/28/2023)Colonoscopy (09/06/2022)Colonoscopy (09/06/2022)THR - Totalhip replacement (2022)Mastectomy of right breast (01/20/2022)Ultrasound guided biopsy Right Breast (12/13/2020)Barium swallow (10/19/2020)CT of abdomen with contrast (07/02/2019)Upper GI endoscopy (02/25/2019)Colonoscopy (02/25/2019)X-ray of cervical spine (04/29/2018)X-ray of lumbar spine (04/29/2018)Chest X-ray (04/29/2018)Total knee arthroplasty (08/29/2017)Sigmoidectomy (2017)DEXA - Dual energy X-ray photon absorptiometry (04/19/2017)Mammogram (04/19/2017)Total knee arthroplasty (03/21/2017)Total hip replacement (05/23/2016)Echocardiogram (05/16/2016)Colonoscopy (07/15/2015)Laparoscopy, closure of bladder fistula (2014)colonoscopy (09/29/2009)Tubal ligation (1981)Wrist, left, screw were put inUltrasound guided biopsy Medications acetaminophen(Tylenol) amLODIPine(amLODIPine 10 mg oral tablet), 1 tab, PO, Daily chlorthalidone(chlorthalidone 25 mg oral tablet), See Instructions, 3 refills exemestane(exemestane 25 mg oral tablet) glucosamine(glucosamine 500 mg oral capsule), 500 mg= 1 cap, PO, qAM oxyBUTYnin(oxyBUTYnin 5 mg/24 hours oral tablet, extended release), 1 tab, PO, Daily, PRN potassium chloride(Potassium Chloride (Zhb-Mxvl-Wsx 10) 10 mEq oral tablet, extended release) turmeric(turmeric 500 mg oral capsule), 500 mg= 1 cap, PO, qAM Allergies Macrobidrigors lisinoprildrug rash Social History Smoking Status Never smoked cigarettes Alcohol Frequency:1-2 times per month 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 Tobacco - Denies Tobacco Use Family History Alzheimer disease: Sister. Breast cancer: MGM. Colon cancer..: Mother. Dementia: Mother. Kidney disease: Father. Stroke: Mother. 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 [place], [address] [place] [address] JDF Patient Care team information Care Team Personnel Name: Will Florez Amy E Position: Pharmacist Member Role: Pharmacy - Lifetime Address: Address: [address] [address] Name: ADELINA Silvestre Shari A Position: Nurse Pract - Family Med Member Role: Primary Care Provider Address: Address: [address] [place] [id number] [place] Name: ADELINA Powell Lorella G Position: Referring DIRECT Member Role: Lifetime Relationship Address: Address: [address] [place] [id number] Care Team Related Persons Name: MARIE STRAUSS Address: home [address] [facility] [id number] Name: MIN MOREIRA Address: home [address] [facility] [place] [id number] Name: MARIE MOREIRA Address: home [address] [facility], [place] [phone] Name: MARIE MOREIRA Address: home [address] [facility] [place] [phone]
--- OUTSIDE RECORDS SUMMARY | 2023-09-14 15:06 | External Medical Summary | Continuity of Care Document ---
Author Name Unknown Organization [place] [id number] Address [address] [place] [phone] Care Team Providers Care Club Licensee Name Role Phone Bridget Silvestre Primary Care Physician [phone] Encounter [facility] [id number] Date(s): 07/23/23 - 07/23/23 [facility] [address] [place] [id number] [facility] [address] [place] [id number] Encounter Diagnosis History of bilateral knee arthroplasty.(Discharge Diagnosis) - 07/23/23 Discharge Disposition: Home or Self Care Attending Physician: MD Hayes Wayne J Allergies, Adverse Reactions, Alerts Substance Reaction Severity Status lisinopril drug rash Active Macrobid rigors Active Immunizations Given and Recorded Vaccine Date Status Refusal Reason influenza virus vaccine, inactivated 1 06/26/23 Gi carol influenza virus vaccine, inactivated 06/17/19 Give n [...] Daily, Disp# 30 tab, Refills: 0, Pharmacy: [facility] #[id number] Start Date: 07/16/23 Status: Ordered chlorthalidone 25 mg oral tablet Start: 07/10/22 10:14:00 EST, See Instructions, Disp# 90 tab, Refills: 3, take 1 tablet by mouth daily for 90 DAYS, Pharmacy: [facility] #[id number] Start Date: 07/10/22 Status: Ordered exemestane 25 [...] 6, PRN: as needed for urinarydiscomfort, Pharmacy: [facility] #[id number] Start Date: 08/04/22 Stop Date: 03/02/23 Status: Ordered oxyBUTYnin 5 mg/24 hours oral tablet, extended release take 1 tablet by mouth once daily if needed for URINARY DISCOMFORT Start Date: 03/15/23 Status: Ordered Potassium Chloride (Agh-Zvbx-Qro 10) 10 mEq oral tablet, extended release take 1 tablet by mouth once daily Start Date: 03/15/23 Status: Ordered turmeric 500 mg oral capsule Start: 11/10/20 11:38:00 EDT, 1 cap, PO, qAM Start Date: 11/10/20 Status: Ordered Mental Status 07/23/23 Barriers to Learning one year None evide nt Mandatory Health Literacy Documentation Yes Health Literacy Communication Barriers N ever Primary Language Greek Problem List Condition Confirmation Course Effective Dates [...] Diagnosis Diagnosis Type Effective Dates Health Status Cl inical Service Informant History of bilateral knee arthroplasty. Discharge Diagnosis 07/23/23 Procedures Procedure Date Related Diagnosis Body Site [...] Completed Echocardiogram 20 05/16/16 Complet ed Colonoscopy 07/15/15 Completed Laparoscopy, closure of blad margarette [...] Event Display: Ortho Outpt Note Authored Date: [id number] Name:LU MOREIRA Patient Number:[id number] :1940 Date of Service:07/23/2023 CHIEF COMPLAINT: Follow-up s/p left BEULAH; DOS: 03/28/2023 HPI: [id number] yearoldFearmond presents today forfollow-up s/p left BEULAH.Patient reports she is very pleased with her results. She has no pain with activity or at rest and able to many activities that were difficult prior to surgery. She continues to perform scar tissue ma ssage. PHYSICAL EXAM: Focus on left lower extremity: Femoral and sciatic nerve function intact. Supple and pain free hip ROM Incision well-healed IMPRESSION:4 months s/p left BEULAH PLAN: Continue with activities as tolerated Reviewed hip precautions Follow-up in 3 months with x-rays ATTESTATION: I,Neeta Louie, scribing for and in the presence of, Brandon Hayes, on this date,07/23/2023 14:00:29. Electronic Signature on File Electronically Reviewed/Signed by: Neeta Louie Author Signature Dt/Tm:07/23/2023 02:07 PM Electronically Reviewed/Signed by: Brandon Hayes MD Cosigner Signature Dt/Tm: 07/23/2023 02:08 PM [employer] Crewmember for Clinical Affairs, [facility] Alexus Professor in Orthopaedics Auto Tire Recapper, [facility] Patient Care team information Care Team Personnel Name: Will Florez Amy E Position: Pharmacist Member Role: Pharmacy - Lifetime Address: Address: [address] [address] Name: ADELINA Silvestre Shari A Position: Nurse Pract - Family Med Member Role: Primary Care Provider Address: Address: [address] [place] [address] Name: ADELINA Powell Lorella G Position: Referring DIRECT Member Role: Lifetime Relationship Address: Address: [address] [place] [address] Care Team Related Persons Name: MARIE STRAUSS Address: home [address] [facility], [phone] Name: MIN MOREIRA Address: home [address] [place] [address] [place]IDIONNE Jovel [phone] Name: MARIE MOREIRA Address: home [address] [facility], [place] [phone] Name: MARIE MOREIRA Address: home [address] [facility] [place] [phone]
--- NOTE | 2023-09-15 06:44 | Electrocardiogram Report ---
Test Reason : Blood Pressure : / mmHG Vent. Rate : 057 BPM Atrial Rate : 057 BPM P-R Int : 176 ms QRS Dur : 096 ms QT Int : 566 ms P-R-T Axes : 055 007 054 degrees QTc Int : 550 ms Sinus bradycardia Moderate voltage criteria for LVH, may be normal variant ( R in aVL , [place] product ) Nonspecific ST and T wave abnormality Prolonged QT Abnormal ECG When compared with ECG of 23-FEB-2019 22:17, Nonspecific T wave abnormality, worse in Inferior leads T wave inversion now evident in Lateral leads QT has lengthened Confirmed by Vitaly Petersen ([id number]) on 09/15/2023 6:43:23 AM Referred By: REFERRED SELF Confirmed By:Vitaly Petersen
[2023-09-15 06:57] LABS: Hematocrit (blood only) 41.9 % (37.0-47.0); Hemoglobin 13.4 g/dl (12.0-16.0); Mean Corpuscular Hemoglobin 27.3 pg (25.0-34.0); Mean Corpuscular Volume 85.3 fL (80.0-100.0); Mean Platelet Volume 11.2 fL (9.4-12.4); Platelet Count 240 K/uL (130-400); RDW Coefficient of Variation 14.6 % (11.5-14.5); RDW Standard Deviation 45.7 fL (36.4-46.3); Red Blood Count 4.91 M/uL (4.20-5.40); White Blood Count 6.11 K/ul (4.8-10.8)
[2023-09-15 07:22] LABS: Albumin Level 3.8 gm/dl (3.4-5.0); BUN Creatinine Ratio 15.6 (10-20); Bilirubin Direct 0.1 mg/dl (0-0.2); Bilirubin,Total 0.7 mg/dl (0.2-1.0); Calcium 9.7 mg/dl (8.6-10.3); Est GFR (African American) 69.5 ml/min; Potassium 3.6 mmol/L (3.5-5.1); Total Protein 6.6 gm/dl (6.0-8.3)
[2023-09-15] MEDS: amLODIPine BESYLATE 5 MG TAB PO SCH (08:30)
--- NOTE | 2023-09-15 09:24 | XRay Report ---
KUB HISTORY: Acute generalized abdominal pain eval sbo COMPARISON: CT 09/13/2023 FINDINGS: Bilateral hip arthroplasties. Multilevel degenerative changes of the spine. Nonobstructive bowel gas pattern. Moderate fecal retention in the right hemicolon. There is mild right hemidiaphragm atic elevation. No renal calculi. No ureteral calculi. No pneumoperitoneum or pneumatosis. No fractu re. IMPRESSION: Nonobstructive bowel gas pattern. ACT 112: Negative or not required by law. The above report was generated using voice recognition software. It may contain grammatical, syntax o r spelling errors. Electronically signed by: Reji Tam M.D. 09/15/2023 9:23 AM
--- NOTE | 2023-09-15 16:51 | Discharge Summary ---
Date of Service September 15, 2023 Admission HPI Per Admitting Provider Ramonita Gonzalez is a pleasant 83yo female with history of , TRENT on CPAP, HTN and Diverticulitis presenting with abdominal pain. Patient reports that she felt well most of the day. She went to [employer] for a luncheon and had pasta and park cheesecake. Around 16:00 she developed some upper abdominal pain and firmness of the abdomen. She reports that her "belly button felt hard". She developed nausea with multiple episodes of non-bloody vomiting that was ongoing for hours. She had progression of her abdominal pain which prompted her to come to the ER. She feels that her abdomen has softened. She had a lot of belching and is passing a very small amount of gas rectally. Pain improved after Morphine. Nausea has resolved. In the ER she is afebrile, HD stable ER Course: Magnesium 2 gm KCl 10mEq Morphine 4mg IV Zofran 4mg IV NSS x 500mL Principal Diagnosis Partial small bowel obstruction resolved with conservative treatment Discharge Exam Very pleasant no apparent distress abdomen exam is benign Discharge Data Allergies Allergy/AdvReac Type Severity Reaction Status Date / Time lisinopril Allergy Severe Hives Verified 09/13/23 23:05 nitrofurantoin Allergy Severe Hives Verified 09/13/23 23:05 [From Macrobid] Consultations 09/13/23 23:56 ED Decision to Admit Stat Ordered Studies Abdomen/Pelvis CT 09/13/23 21:56 Exam(s): CT ABDOMEN + PELVIS With Contrast IV Amt: 86 ML OPTIRAY 320 EXAM: CT Abdomen and Pelvis With Intravenous Contrast CLINICAL HISTORY: Reason for exam: abd pain, vomiting. TECHNIQUE: Axial computed tomography images of the abdomen and pelvis with intravenous contrast. CTDI is 26.84 mGy and DLP is 1282.59 mGy-cm. Automated exposure control was utilized for the study. A dose lowering technique was utilized adhering to the principles of ALARA. CONTRAST: Patient received 86 ML OPTIRAY 320 of IV contrast COMPARISON: 07/02/2019. FINDINGS: Lung bases: Mild bilateral lower lobe atelectasis. Heart: Mild cardiomegaly. ABDOMEN: Liver: Multiple low-attenuation structures within the liver, largest seen in the left liver lobe measuring 17.6 mm compatible with liver cysts. Gallbladder and bile ducts: Unremarkable. No calcified stones. No ductal dilation. Pancreas: Unremarkable. No mass. No ductal dilation. Spleen: Unremarkable. No splenomegaly. Adrenals: Unremarkable. No mass. Kidneys and ureters: Small low-attenuation structures within the bilateral kidneys, the largest on the right measuring 8 mm in largest the left measuring 13 mm most compatible with liver cysts, some too small to actually characterize. Otherwise normal bilateral kidneys. Stomach and bowel: Multiple loops of small bowel distended up to 2.7 cm, which may indicate very early or mild obstruction versus ileus. The transverse and descending colon are decompressed and therefore difficult to assess. Diverticulosis throughout the colon more so to the descending portion and sigmoid with no signs of diverticulitis. PELVIS: Appendix: Normal appendix . Bladder: Unremarkable. No mass. Reproductive: Anteverted uterus . ABDOMEN and PELVIS: Intraperitoneal space: Unremarkable. No free air. No significant fluid collection. Bones/joints: Bilateral hip prostheses obscuring surrounding detail and pelvic structures. No acute fracture. No dislocation. Soft tissues: Small fat-containing umbilical hernia. Vasculature: Calcified at the spine disease of aorta with no aneurysm or dissection. Lymph nodes: Unremarkable. No enlarged lymph nodes. IMPRESSION: 1. Possible early small bowel obstruction with exact zone of transition indeterminate and likely at the mid proximal ileum or distal jejunum. No acute appendicitis. Diverticulosis with no signs of diverticulitis may 2. Liver and bilateral renal cysts, with no further follow-up imaging recommended. Remainder of abdominal viscera are unremarkable. Electronically signed by: Soha Zhao MD 09/13/23 23:45 PM KUB X-Ray 09/14/23 09:00 KUB HISTORY: Abnormal abdomen and pelvis CT. Possible small bowel obstruction. COMPARISON: Abdomen and pelvis CT 09/13/2023. FINDINGS: The bowel gas pattern is unremarkable. There are no dilated loops of small bowel to suggest an obstruction. No renal calculi. No ureteral calculi. Calcifications in the deep pelvis likely represent phleboliths. Contrast within the urinary system is noted from the recent CT examination. There are bilateral total hip arthroplasties. There is mild fecal retention. Degenerative changes within the lumbar spine. No pneumoperitoneum or pneumatosis. IMPRESSION: No dilated loops of bowel to suggest an obstruction. ACT 112: Negative or not required by law. Electronically signed by: Aníbal Payton M.D. 09/14/2023 9:34 AM KUB X-Ray 09/15/23 07:00 KUB HISTORY: Acute generalized abdominal pain eval sbo COMPARISON: CT 09/13/2023 FINDINGS: Bilateral hip arthroplasties. Multilevel degenerative changes of the spine. Nonobstructive bowel gas pattern. Moderate fecal retention in the right hemicolon. There is mild right hemidiaphragmatic elevation. No renal calculi. No ureteral calculi. No pneumoperitoneum or pneumatosis. No fracture. IMPRESSION: Nonobstructive bowel gas pattern. ACT 112: Negative or not required by law. The above report was generated using voice recognition software. It may contain grammatical, syntax or spelling errors. Electronically signed by: Reji Tam M.D. 09/15/2023 9:23 AM Hospital Course (1) SBO (small bowel obstruction): 83yo female presenting with acute onset abdominal pain and tightness with multiple episodes of vomiting. CT of the abdomen as above with concern for early SBO. Patient tolerated advancing diet clinical symptoms have resolved patient having flatus -symptoms improved, did have history of previous colo vesicular fistulae repair, (2) Aortic stenosis: Mild to moderate per echo 04/2022 - AV peak velocity 2.91m/s. STEVE 1cm2 Has remained euvolemic without symptoms (3) Sleep apnea: Chronic. Patient reports compliance with CPAP at home -Continue CPAP qhs (4) HTN (hypertension): Chronic. Blood pressure presently 145/80 -Continue Amlodipine 10mg po daily -Continue Chlorthalidone 25mg po qAM Total Time Total Time Spent Total Time Spent (In Minutes): It required less than 30 minutes to prepare this patient for discharge. Discharge Plan Discharge Items Patient Disposition: Home - Self-Care Reason For Visit: ABDOMINAL PAIN, ?EARLY SBO Discharge Diagnosis: partial small bowel obstruction resolved Activity: Resume your previous activity Non-emergency contact: Primary Care Provider Call non-emergency contact if: your symptoms worsen Follow-up/Referrals: Bridget Silvestre CRNP [Primary Care Provider] - Diet: Low Fiber Addtl Attending Provider Instructions: please have a low fiber diet for the next 3-5 days, please return if your symptoms recur follow up with your family doctor Pending Studies at Discharge: No Stand-Alone Forms: [employer], Smoking Cessation Medications and DC Order Prescriptions: Continued amlodipine 10 mg tablet 10 mg PO QAM chlorthalidone 25 mg Tablet 25 mg PO QAM exemestane [Aromasin] 25 mg Tablet 25 mg PO QAM Rx Instructions: must administer after a meal oxybutynin chloride 5 mg Tablet Extended Release 24hr 5 mg PO DAILY PRN (Reason: urinary discomfort) acetaminophen 500 mg Tablet 500 - 1,000 mg PO Q6H PRN (Reason: Pain) turmeric 400 mg Capsule 0 mg PO DAILY Discharge Orders: Discharge Order (Routine); Ordered 09/15/23 Ordered By: Andre Meléndez/Other Patient Handouts: Low-Fiber Diet Admission Data Admit Date/Time: 09/14/23 00:50 Attending Provider: Andre Rico Admit Provider: Luann Harrington Primary Care Provider: Bridget Silvestre Other Providers: Luann Harrington Other Interventions: Discharge Summary Assessment (RN) Last Done: 09/15/23 12:09 Coding Level of Care Code 66325 IN/OBS DISCH 30 MIN/LESS Diagnoses SBO (small bowel obstruction) K56.609 Aortic stenosis I35.0 Sleep apnea G47.30 HTN (hypertension) I10
== END 2023-09-15 12:09 | disposition home or self-care (01) | DRG 390 ==
LOC: ED 21:42 → 3N 09-14 00:50 → SUATTDRO 09-14 00:50 → 3N 09-14 01:45

== ENCOUNTER 2025-08-10 03:51 | Observation (INO) ==
--- NOTE | 2025-08-10 04:08 | Emergency Department Note ---
History of Present Illness General Chief complaint: GI Assessment Stated complaint: severe acid reflux, hard time swallowing Time Seen by Provider: 08/10/25 03:58 History of Present Illness This 85-year-old female presents to ER complaining of throat burning has been on Augmentin for the past week for a dental infection. Patient states she has tried mustard which normally helps with her reflux. Symptoms have persisted for 2 days and came in. Patient denies dyspnea, abdominal pain, vomiting, diarrhea, fever, chills, flulike illness. Patient is done taking the antibiotic today. Home Medications Medication Instructions Recorded Confirmed Type chlorthalidone 25 mg tablet 25 mg PO QAM 02/23/19 08/10/25 History amlodipine 10 mg tablet 10 mg PO QAM 03/22/21 08/10/25 History exemestane 25 mg tablet (Aromasin) 25 mg PO QAM 08/30/22 08/10/25 History oxybutynin chloride 5 mg 5 mg PO DAILY PRN urinary 03/16/23 08/10/25 History tablet,extended release 24 hr discomfort acetaminophen 500 mg tablet 500 - 1,000 mg PO Q6H PRN Pain 03/28/23 08/10/25 History turmeric 400 mg capsule 0 mg PO DAILY 09/13/23 08/10/25 History lnst-unebn-[id number]-mib-wwa-[id number]-sterols 1 cap PO DAILY 04/01/24 08/10/25 History 375 mg-100 mg-36 mg-54 mg capsule (Glucosamine Chondroitin PLUS) sacubitril 24 mg-valsartan 26 mg 1 tab PO BID 08/10/25 08/10/25 History tablet Allergies Allergy/AdvReac Type Severity Reaction Status Date / Time lisinopril Allergy Severe Hives Verified 05/14/24 09:10 nitrofurantoin Allergy Severe Hives Verified 05/14/24 09:10 [From Macrobid] Past Med/Surg History Problem List (Updated 08/10/25 @ 06:06 by Yessenia Olson PA-C) Burning sensation of throat (Acute) Elevated troponin (Acute) Elevated LFTs (Acute) S/P repair of ventral hernia Obesity (BMI 35.0-39.9 without comorbidity) Incarcerated ventral hernia Vomiting (Acute) Abdominal pain (Acute) HTN (hypertension) Sleep apnea CPAP Aortic stenosis Mild to moderate per 04/2022 ECHO Abdominal pain (Acute) SBO (small bowel obstruction) (Acute) Status post left hip replacement Malignant neoplasm of central portion of right breast in female, estrogen receptor positive (12/13/20) Encounter for pre-operative examination Medical History (Updated 08/10/25 @ 06:06 by Yessenia Olson PA-C) Carotid artery aneurysm Per head MRA 12/09/21= No change in a 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 No additional intracranial aneurysms. History of COVID-19 06/2022 asymptomatic Osteoarthritis Diverticular disease History of breast cancer Dx'd January 2021 - Rt breast - treated surgically (lumpectomy) Cardiac murmur Follows with Dr. Rawls. Since childhood - with PSH GI bleed Years ago Surgical History (Updated 04/02/24 @ 15:29 by Elizabeth Mondragon RN) H/O ventral hernia repair (04/01/24) Open Incarcerated Ventral Hernia Repair(Not Applicable) - Gerardo Graham DO History of colonoscopy History of surgery on left wrist Status post hip replacement Right History of total knee replacement (TKR) bilateral History of ultrasound guided needle biopsy (12/13/20) Right Breast History of lumpectomy (01/21/21) Right [place]-vesical fistula hx surgical repair Family History Father No problems noted. Mother No problems noted. Son No problems noted. Son No problems noted. Son No problems noted. Other Family history non-contributory No family history of adverse response to anesthesia Social History Smoking Status: Never smoker Second Hand Exposure: No; Do You Dip or Chew Tobacco: No; Hx Alcohol Use: Yes Alcohol type: wine Alcohol Intake Frequency: Monthly or Less Hx Substance Use: No Preferred Language: Slovak Communication Ability: Effective Visual Impairment: No Limitations Hearing Ability: Normal Bronze Chaser Required: No Beliefs That Will Affect Care: None marital status: Current Living Situation: Spouse Current Living Situation Comment: lives in 1 story home with current occupational status: 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 How many Children do You have: 3 Feels Safe at Home: Yes Childhood Exposure to Second-Hand Smoke: No Diet: other and regular Diet Comment: Nutri System caffeine: No during the past year weight has: decreased > 10 lbs Dental Care, Regularly: Yes Assistive Devices: CPAP and Glasses Review of Systems A total of 10 systems reviewed and were otherwise negative Physical Exam Vital Signs Vital Signs - 24 hr 08/10/25 03:54 08/10/25 04:13 08/10/25 04:29 Temperature 36.6 C Temperature Source Temporal Artery Scan Pulse Rate 77 63 Pulse Rate [Apical] 57 L Pulse Rhythm Pulse Rhythm [Apical] Regular Pulse Strength [Apical] Normal Respiratory Rate 18 16 Respiratory Effort / Characteristics Non-Labored Spontaneous Non-Labored Respiratory Depth Normal Normal Respiratory Pattern Regular Regular Blood Pressure 168/142 H Blood Pressure [Right Arm] 157/81 H Blood Pressure Mean 150 Blood Pressure Mean [Right Arm] 106 Blood Pressure Position Sitting Blood Pressure Position [Right Arm] Lying Pulse Oximetry 98 95 Oxygen Delivery Method Room Air Room Air Sepsis Recent Fever Within 48 Hours No Sepsis New/Unexplained Change in Mental Status N/A Sepsis Action Taken by Nursing No Action Required 08/10/25 04:29 08/10/25 06:00 08/10/25 07:10 Temperature Temperature Source Pulse Rate 57 L Pulse Rate [Apical] 68 44 L Pulse Rhythm Regular Pulse Rhythm [Apical] Regular Regular Pulse Strength [Apical] Normal Normal Respiratory Rate 16 16 16 Respiratory Effort / Characteristics Non-Labored Non-Labored Spontaneous Respiratory Depth Normal Normal Respiratory Pattern Regular Regular Blood Pressure Blood Pressure [Right Arm] 147/81 H 177/84 H Blood Pressure Mean Blood Pressure Mean [Right Arm] 103 115 Blood Pressure Position Blood Pressure Position [Right Arm] Lying Lying Pulse Oximetry 95 96 96 Oxygen Delivery Method Room Air Room Air Room Air Sepsis Recent Fever Within 48 Hours Sepsis New/Unexplained Change in Mental Status Sepsis Action Taken by Nursing 08/10/25 08:15 08/10/25 08:20 08/10/25 09:06 Temperature Temperature Source Pulse Rate 43 L Pulse Rate [Apical] 47 L 41 L Pulse Rhythm Pulse Rhythm [Apical] Regular Regular Pulse Strength [Apical] Normal Normal Respiratory Rate 19 15 Respiratory Effort / Characteristics Non-Labored Spontaneous Non-Labored Spontaneous Respiratory Depth Normal Normal Respiratory Pattern Regular Regular Blood Pressure Blood Pressure [Right Arm] 179/86 H 165/80 H Blood Pressure Mean Blood Pressure Mean [Right Arm] 117 108 Blood Pressure Position Blood Pressure Position [Right Arm] Lying Lying Pulse Oximetry 95 95 Oxygen Delivery Method Room Air Room Air Sepsis Recent Fever Within 48 Hours Sepsis New/Unexplained Change in Mental Status Sepsis Action Taken by Nursing 08/10/25 09:48 08/10/25 11:56 08/10/25 12:20 Temperature Temperature Source Pulse Rate 52 L Pulse Rate [Apical] 60 40 L Pulse Rhythm Pulse Rhythm [Apical] Regular Regular Pulse Strength [Apical] Normal Normal Respiratory Rate 19 16 Respiratory Effort / Characteristics Non-Labored Spontaneous Non-Labored Respiratory Depth Normal Normal Respiratory Pattern Regular Regular Blood Pressure Blood Pressure [Right Arm] 144/82 H 145/79 H Blood Pressure Mean Blood Pressure Mean [Right Arm] 102 101 Blood Pressure Position Blood Pressure Position [Right Arm] Lying Lying Pulse Oximetry 99 94 Oxygen Delivery Method Room Air Room Air Sepsis Recent Fever Within 48 Hours Sepsis New/Unexplained Change in Mental Status Sepsis Action Taken by Nursing VITALS: Vitals are noted on the nurse's note and reviewed by myself. Vital signs stable. GENERAL: Pleasant female, in no acute distress, nondiaphoretic, well-developed well-nourished. SKIN: Capillary reflex less than 2 seconds. HEENT: Normocephalic. PERRLA. EOMI. mild icterus. Nares patent. Mucous membranes moist. Neck is supple without nuchal rigidity. HEART: Regular rate and rhythm LUNGS: Clear to auscultation bilaterally without wheezes, rales or rhonchi. No retractions or accessory muscle use. ABDOMEN: Positive bowel sounds x 4. Normal tympanic percussion. Soft, nontender, without masses or organomegaly. Hernández sign negative. No guarding or rebound tenderness. no CVA tenderness MUSCULOSKELETAL: No gross musculoskeletal defects. NEURO: Patient was alert and oriented to person place and time. No focal neurological deficits. Course Administered Medications Amlodipine Besylate (Amlodipine Besylate 5 Mg Tab) 10 mg PO [facility] Stop: 09/09/25 17:14 Last Admin: 08/10/25 20:03 Dose: 10 mg Documented By: KULWINDERK Chlorthalidone (Chlorthalidone 25 Mg Tab) 25 mg PO QAM [facility] Stop: 09/09/25 17:14 Last Admin: 08/10/25 20:02 Dose: 25 mg Documented By: LUIS Famotidine (Pepcid 20mg Iv Push) 20 mg in 5 mls @ 2.5 mls/min IV BID [facility] Stop: 09/09/25 20:59 Last Admin: 08/10/25 21:44 Dose: 2.5 mls/min Documented By: KULWINDERK Lactated Ringer's (Lr) 1,000 mls @ 80 mls/hr IV .[id number] [facility] Stop: 08/13/25 15:29 Last Admin: 08/10/25 15:58 Dose: 80 mls/hr Documented By: CHITRA Miscellaneous (Exemestane [Aromasin] 25 Mg Tablet-Order Awaiting Action) 1 each N/A QS [facility] Stop: 09/10/25 00:00 Last Admin: 08/10/25 23:18 Dose: Not Given Documented By: KULWINDERK Pantoprazole Sodium (Pantoprazole 40 Mg Tab) 40 mg PO BID [facility] Stop: 09/09/25 20:59 Last Admin: 08/10/25 20:03 Dose: 40 mg Documented By: LUIS Discontinued Medications Al Hydrox/Mg Hydrox/Simethicone (Aluminum/Magnesium Susp 30 Ml Udc) 30 ml PO NOW STA Stop: 08/10/25 04:06 Last Admin: 08/10/25 04:18 Dose: 30 ml Documented By: vgr Famotidine (Pepcid 20mg Iv Push) 20 mg in 5 mls @ 2.5 mls/min IV NOW STA Stop: 08/10/25 04:06 Last Admin: 08/10/25 04:17 Dose: 2.5 mls/min Documented By: vgr Piperacillin Sod/Tazobactam Sod (Zosyn) 4.5 gm in 100 mls @ 200 mls/hr IV NOW ONE; Protocol Stop: 08/10/25 06:07 Last Infusion: 08/10/25 06:27 Dose: Infused Documented By: vgr Admin: 08/10/25 05:56 Dose: 200 mls/hr Documented By: vgr Sodium Chloride (Nss) 500 mls @ 125 mls/hr IV .Q4H ONE Stop: 08/10/25 15:33 Last Infusion: 08/10/25 15:59 Dose: Infused Documented By: Admin: 08/10/25 11:44 Dose: 125 mls/hr Documented By: SHB Famotidine (Pepcid 20mg Iv Push) 20 mg in 5 mls @ 2.5 mls/min IV Q24H [facility] Stop: 09/09/25 13:59 Last Admin: 08/10/25 13:56 Dose: 2.5 mls/min Documented By: CHITRA Ioversol (Optiray 320 100ml) 100 ml IV ONCE ONE Stop: 08/10/25 05:41 Last Admin: 08/10/25 05:42 Dose: 93 ml Documented By: JANELLE Lactobacillus Acidophilus (Advanced Probiotic 625 Mg Capsule) 1,250 mg PO ONE ONE Stop: 08/10/25 17:09 Last Admin: 08/10/25 21:44 Dose: 1,250 mg Documented By: LUIS Lidocaine HCl (Lidocaine Viscous 2% 15 Ml Udc) 15 ml PO NOW ONE Stop: 08/10/25 04:06 Last Admin: 08/10/25 04:17 Dose: 15 ml Documented By: laury Medical Decision Making Medical Records Attestation: I reviewed the patient's medical records. Home Medications Current Medication List: was personally reviewed by me Laboratory Data Attestation: I reviewed the patient's lab results. 08/10/25 06:07 08/10/25 06:07 Lab Results 08/10/25 08/10/25 08/10/25 Range/Units 04:24 04:58 06:07 WBC Cancelled Cancelled 4.91 RBC Cancelled Cancelled 5.11 Hgb Cancelled Cancelled 15.0 Hct Cancelled Cancelled 44.4 MCV Cancelled Cancelled 86.9 MCH Cancelled Cancelled 29.4 MCHC Cancelled Cancelled 33.8 RDW Std Deviation Cancelled Cancelled 43.3 RDW Coeff of [place] Cancelled Cancelled 13.6 Plt Count Cancelled Cancelled 230 MPV Cancelled Cancelled 11.2 Immature Gran % (Auto) Cancelled Cancelled 0.6 Neut % (Auto) Cancelled Cancelled 53.4 Lymph % (Auto) Cancelled Cancelled 24.8 [place] % (Auto) Cancelled Cancelled 8.4 Eos % (Auto) Cancelled Cancelled 12.4 Baso % (Auto) Cancelled Cancelled 0.4 Neut # (Auto) Cancelled Cancelled 2.62 Lymph # (Auto) Cancelled Cancelled 1.22 [place] # (Auto) Cancelled Cancelled 0.41 Eos # (Auto) Cancelled Cancelled 0.61 H Baso # (Auto) Cancelled Cancelled 0.02 Immature Gran # (Auto) Cancelled Cancelled 0.03 Absolute Nucleated RBC Cancelled Cancelled Nucleated RBC % (auto) Cancelled Cancelled Neutrophils % (Manual) Cancelled Cancelled Band Neutrophils % Cancelled Cancelled Lymphocytes % (Manual) Cancelled Cancelled Prolymphocyte % Cancelled Cancelled Reactive Lymphs % (Man) Cancelled Cancelled Monocytes % (Manual) Cancelled Cancelled Eosinophils % (Manual) Cancelled Cancelled Basophils % (Manual) Cancelled Cancelled Metamyelocytes % (Man) Cancelled Cancelled Myelocytes % (Man) Cancelled Cancelled Promyelocytes % (Man) Cancelled Cancelled Blast Cells % (Manual) Cancelled Cancelled Plasma Cell % (Manual) Cancelled Cancelled Other Cells % Cancelled Cancelled Nucleated RBC % Cancelled Cancelled Neutrophils # (Manual) Cancelled Cancelled Band Neutrophils # Cancelled Cancelled Total Absolute Neuts Cancelled Cancelled Lymphocytes # (Manual) Cancelled Cancelled Prolymphocyte # Cancelled Cancelled Reactive Lymphs # Cancelled Cancelled Total Abs Lymphocytes Cancelled Cancelled Monocytes # (Manual) Cancelled Cancelled Eosinophils # (Manual) Cancelled Cancelled Basophils # (Manual) Cancelled Cancelled Metamyelocytes # (Man) Cancelled Cancelled Myelocytes # (Manual) Cancelled Cancelled Promyelocytes # (Man) Cancelled Cancelled Blast Cells # (Man) Cancelled Cancelled Plasma Cell # (Manual) Cancelled Cancelled Other Cells # Cancelled Cancelled Nucleated RBCs # (Man) Cancelled Cancelled Hypersegmented Neuts Cancelled Cancelled Hyposegmented Neuts Cancelled Cancelled Hypogranular Neuts Cancelled Cancelled Large Granular Lymphs Cancelled Cancelled # Lrg Granular Lymphs Cancelled Cancelled Hairy Cells Cancelled Cancelled Smudge Cells Cancelled Cancelled Toxic Granulation Cancelled Cancelled Toxic Vacuolation Cancelled Cancelled Dohle Bodies Cancelled Cancelled Sherry Rods Cancelled Cancelled Platelet Estimate Cancelled Cancelled Hypogranular Platelets Cancelled Cancelled Giant Platelets Cancelled Cancelled Platelet Satelliting Cancelled Cancelled RBC Morphology Cancelled Cancelled Polychromasia Cancelled Cancelled Hypochromasia Cancelled Cancelled Poikilocytosis Cancelled Cancelled Basophilic Stippling Cancelled Cancelled Anisocytosis Cancelled Cancelled Microcytosis Cancelled Cancelled Macrocytosis Cancelled Cancelled Spherocytes Cancelled Cancelled Pappenheimer Bodies Cancelled Cancelled Sickle Cells Cancelled Cancelled Target Cells Cancelled Cancelled Tear Drop Cells Cancelled Cancelled Ovalocytes Cancelled Cancelled Stomatocytes Cancelled Cancelled [place] Bodies Cancelled Cancelled Echinocytes Cancelled Cancelled Acanthocytes (Spur) Cancelled Cancelled Rouleaux Cancelled Cancelled RBC Agglutinates Cancelled Cancelled Schistocytes Cancelled Cancelled Sezary Cell Cancelled Cancelled PT 10.6 (9.0-12.0) Seconds INR 1.0 (0.9-1.1) APTT 25 (21-31) Seconds PTT Ratio 0.9 Sodium 137 (136-145) mmol/L Potassium TNP 3.3 L Chloride 101 (98-107) mmol/L Carbon Dioxide 25 (21-32) mmol/L Anion Gap 11 (3-11) BUN 18 (6-23) mg/dl Creatinine 1.18 (0.6-1.2) mg/dl Est Cr Clr Drug Dosing 39.6 ml/min eGFR 45.83 BUN/Creatinine Ratio 15.3 (10-20) Glucose 157 H (70-99(Fasting)) mg/dl Calcium 10.8 H (8.6-10.3) mg/dl Total Bilirubin 4.1 H (0.2-1.0) mg/dl Direct Bilirubin (0-0.2) mg/dl AST TNP 86 H ALT 284 H (7-52) U/L Alkaline Phosphatase 256 H (34-104) U/L Troponin I High Sens 16.3 H (0-14) pg/ml Total Protein 8.0 (6.0-8.3) gm/dl Albumin 4.2 (3.4-5.0) gm/dl Globulin 3.8 (2.5-4.0) gm/dl Albumin/Globulin Ratio 1.1 (0.9-2) Lipase 32 (11-82) U/L Urine Color Urine Appearance (Clear) Urine pH (4.5-7.5) Ur Specific [place] (1.000-1.030) Urine Protein (Negative) Urine Glucose (UA) (Negative) Urine Ketones (Negative) Urine Blood (Negative) Urine Nitrite (Negative) Urine Bilirubin (Negative) Urine Urobilinogen (Negative) Ur Leukocyte Esterase (Negative) Urine WBC (Auto) (0-5) /hpf Urine RBC (Auto) (0-2) /hpf U Hyaline Cast (Auto) (0-2) /lpf U Epithel Cells (Auto) (0-2) /hpf Urine Bacteria (Auto) (None Seen) Urine Comment Hep Bs Antigen Negative (Negative) Hepatitis C Antibody Negative (Negative) Blood Parasites ID Cancelled Cancelled 08/10/25 08/10/25 Range/Units 09:33 09:44 WBC RBC Hgb Hct MCV MCH MCHC RDW Std Deviation RDW Coeff of [place]ata Plt Count MPV Immature Gran % (Auto) Neut % (Auto) Lymph % (Auto) [place] % (Auto) Eos % (Auto) Baso % (Auto) Neut # (Auto) Lymph # (Auto) [place] # (Auto) Eos # (Auto) Baso # (Auto) Immature Gran # (Auto) Absolute Nucleated RBC Nucleated RBC % (auto) Neutrophils % (Manual) Band Neutrophils % Lymphocytes % (Manual) Prolymphocyte % Reactive Lymphs % (Man) Monocytes % (Manual) Eosinophils % (Manual) Basophils % (Manual) Metamyelocytes % (Man) Myelocytes % (Man) Promyelocytes % (Man) Blast Cells % (Manual) Plasma Cell % (Manual) Other Cells % Nucleated RBC % Neutrophils # (Manual) Band Neutrophils # Total Absolute Neuts Lymphocytes # (Manual) Prolymphocyte # Reactive Lymphs # Total Abs Lymphocytes Monocytes # (Manual) Eosinophils # (Manual) Basophils # (Manual) Metamyelocytes # (Man) Myelocytes # (Manual) Promyelocytes # (Man) Blast Cells # (Man) Plasma Cell # (Manual) Other Cells # Nucleated RBCs # (Man) Hypersegmented Neuts Hyposegmented Neuts Hypogranular Neuts Large Granular Lymphs # Lrg Granular Lymphs Hairy Cells Smudge Cells Toxic Granulation Toxic Vacuolation Dohle Bodies Sherry Rods Platelet Estimate Hypogranular Platelets Giant Platelets Platelet Satelliting RBC Morphology Polychromasia Hypochromasia Poikilocytosis Basophilic Stippling Anisocytosis Microcytosis Macrocytosis Spherocytes Pappenheimer Bodies Sickle Cells Target Cells Tear Drop Cells Ovalocytes Stomatocytes [place] Bodies Echinocytes Acanthocytes (Spur) Rouleaux RBC Agglutinates Schistocytes Sezary Cell PT (9.0-12.0) Seconds INR (0.9-1.1) APTT (21-31) Seconds PTT Ratio Sodium (136-145) mmol/L Potassium Chloride (98-107) mmol/L Carbon Dioxide (21-32) mmol/L Anion Gap (3-11) BUN (6-23) mg/dl Creatinine (0.6-1.2) mg/dl Est Cr Clr Drug Dosing ml/min eGFR BUN/Creatinine Ratio (10-20) Glucose (70-99(Fasting)) mg/dl Calcium (8.6-10.3) mg/dl Total Bilirubin (0.2-1.0) mg/dl Direct Bilirubin 2.6 H (0-0.2) mg/dl AST ALT (7-52) U/L Alkaline Phosphatase (34-104) U/L Troponin I High Sens (0-14) pg/ml Total Protein (6.0-8.3) gm/dl Albumin (3.4-5.0) gm/dl Globulin (2.5-4.0) gm/dl Albumin/Globulin Ratio (0.9-2) Lipase (11-82) U/L Urine Color Dark Yellow Urine Appearance Clear (Clear) Urine pH 6.0 (4.5-7.5) Ur Specific [place] > 1.045 H (1.000-1.030) Urine Protein Trace H (Negative) Urine Glucose (UA) Negative (Negative) Urine Ketones Negative (Negative) Urine Blood Negative (Negative) Urine Nitrite Negative (Negative) Urine Bilirubin 2+ H (Negative) Urine Urobilinogen Negative (Negative) Ur Leukocyte Esterase 1+ H (Negative) Urine WBC (Auto) 11-20 H (0-5) /hpf Urine RBC (Auto) 0-2 (0-2) /hpf U Hyaline Cast (Auto) 0-2 (0-2) /lpf U Epithel Cells (Auto) 0-2 (0-2) /hpf Urine Bacteria (Auto) None Seen (None Seen) Urine Comment Hep Bs Antigen (Negative) Hepatitis C Antibody (Negative) Blood Parasites ID Imaging Data Attestation: I personally reviewed and interpreted this imaging study as follows: Radiologist's Impression: Chest X-Ray 08/10/25 04:06 EXAM: XR chest 1V portable CLINICAL HISTORY: Chest pain, nonspecific TECHNIQUE: Radiograph of chest was taken COMPARISON: none FINDINGS: The lungs are clear and well-expanded with no pulmonary infiltrate or pleural effusion. The cardiomediastinal silhouette is within normal limits. No acute osseous abnormality. IMPRESSION: No acute cardiopulmonary disease. Electronically signed by Tyler Jiménez 08-10-2025 06:00 AM Abdomen/Pelvis CT 08/10/25 05:25 EXAM: CT abd pelvis IV con only CLINICAL HISTORY: elevated lfts/bili TECHNIQUE: Contiguous axial images were obtained from the level of the diaphragm to the pubic symphysis with intravenous contrast. Coronal and sagittal reconstructions were likewise performed and indicated to increase the sensitivity for detecting clinically relevant pathology. If IV contrast material had not been administered, the likelihood of detecting abnormalities relevant to the patient's condition would have been substantially decreased. CT scan was performed according to ALARA (as low as reasonably achievable). COMPARISON: 18:38:23 BODY CLEANER. FINDINGS: The visualized lung bases are clear. Sliding hiatus hernia noted. The liver is normal in size and reduced attenuation. Few hypodense lesions are noted in both lobe of liver - appears benign/ could be Cyst (Advice: USG/ Triphasic study correlation). There is no intra or extrahepatic biliary ductal dilatation. Hepatic vasculature is patent. The gallbladder is present and contracted with 3mm sized hyperdense calculus. The spleen, pancreas, and adrenal glands are unremarkable. The kidneys are normal in size and attenuation. There is no hydronephrosis. mild bilateral perinephric fat stranding. No renal calculi or renal masses are identified. Few simple cortical cyst are noted in both kidneys The ureters are normal in caliber and no ureteral calculi are seen. The bladder is normal in contour. Pelvic viscera are unremarkable. No focal or diffuse bowel wall thickening or evidence of bowel obstruction is identified. No imaging evidence of appendicitis. Abdominal and pelvic vasculature is patent. No adenopathy or fluid collections are seen. No aggressive appearing osseous lesions are identified. Diffuse atherosclerotic calcification is noted involving aorta iliac arteries. Fat containing paraumbilical hernia. Multiple small uncomplicated colonic diverticulosis. IMPRESSION: 1. Sliding hiatus hernia noted.-stable. 2. Hepatic steatosis.-stable. 3. Few hypodense lesions are noted in both lobe of liver - appears benign/ could be Cyst (Advice: Triphasic study correlation).-stable. 4. Cholelithiasis. New finding. USG correlation is suggested. 5. Mild bilateral perinephric fat stranding-stable. 6. Few simple cortical cyst are noted in both kidneys-stable. 7. Fat containing paraumbilical hernia.--new finding.. Previous cystic lesion is noted in at the level of umbilicus is not seen in current study. 8. Multiple small uncomplicated colonic diverticulosis-stable. 9. Diffuse atherosclerotic calcification is noted involving aorta iliac arteries.-stable. Electronically signed by Tyler Jiménez 08-10-2025 06:13 AM Gallbladder Ultrasound 08/10/25 05:25 EXAM: US gallbladder CLINICAL HISTORY: elevated lfts/tbili. TECHNIQUE: Limited ultrasound of the liver and gallbladder was performed in greyscale and Doppler. Multiple images were obtained in transverse and longitudinal planes. COMPARISON: 04/01/2024, 08/10/2025 CT FINDINGS: Liver: Liver size: Liver is at the upper limit of normal size values measuring 168 mm in craniocaudal length showing slight heterogeneous echotexture A dumbbell shaped anechoic seen in segment 2 of the left lobe of the liver, showing no vascularity on color Doppler, measuring 15 x 15 x 20 mm in size, likely a parenchymal cyst An echogenic focus of 2.5 mm seen in the right lobe of the liver segment 8 near the subcapsular region could be a small hemangioma. No evidence of focal lesions, cysts, or masses. Hepatic vasculature appears normal. Normal color-flow seen in the portal vein on Doppler Gallbladder: Gallbladder size: Partially contracted Gallbladder shows mild but diffuse wall thickening which measures 3.36 mm A nonshadowing echogenic focus seen in the gallbladder measuring 3.0 mm in size represents a calculus No evidence of gallbladder wall edema or signs of acute cholecystitis. Biliary Tree: Common bile duct diameter: CBD normal in caliber, measuring 4.5 mm at the brenda hepatis. Common bile duct is within normal limits in caliber and not dilated. No evidence of choledocholithiasis or biliary obstruction. Additional findings: Right kidney appears normal size showing normal color-flow and Doppler Lower pole of the right kidney shows few simple parenchymal cysts, larger one measuring 13 x 10 x 13 mm size Imaged pancreatic head appears unremarkable IMPRESSION: 1. Liver is at the upper limit of normal size values, with echogenic focus, possible hemangioma of 2.5 mm seen in the right lobe segment 8 near the subcapsular region, with a coexistent dumbbell shaped parenchymal cyst near the subcapsular surface of segment 2 of the left lobe 2. Partially contracted gallbladder showing mild, but diffuse wall thickening along with a non-shadowing intraluminalpossible calculus, clinical and Hernández sign correlation advised to assess for any superimposed acute cholecystitis. 3. No pericholecystic fluid seen on current study 4. Right renal lower pole simple parenchymal cysts as described. 5. No significant interval new findings. Electronically signed by Raul Magaña 08-10-2025 08:50 AM MDM Narrative Prior records/ancillary studies reviewed. Triage Nursing notes reviewed. Additional history obtained from nurse The patient's history was concerning for throat burning Differential diagnosis: Etiologies such as esophagitis, reflux, cardiac ischemia, aortic dissection, pulmonary embolism, pneumonia, pneumothorax, musculoskeletal, infections, pericarditis, myocarditis, esophageal rupture, gastrointestinal, as well as others were entertained. Physical examination: As above. ER treatment provided: An order was placed for continuous cardiac monitoring. The monitor shows a rate of 60-100 with a sinus rhythm per my interpretation. GI cocktail, Pepcid Zosyn was given for possible developing infx On reassessment the patient felt better. Diagnostic interpretation by me: #1 the electrocardiogram was ordered for throat burning EKG: Normal sinus, T wave inversion in 1 and aVL, no other ST-T wave changes, rate 55. EKG compared to prior EKG with no acute changes noted. Impression sinus bradycardia with unchanged T wave inversions independently interpreted by myself #2 EKG ordered for slightly elevated troponin EKG: Poor baseline, normal sinus, no acute ST-T wave changes, EKG similar to prior EKG with rate of 59. Impression unchanged EKG from earlier per my independent termination The labs Independently Interpreted by myself revealed elevated LFTs and T. bili. Slightly elevated troponin. Advanced workup was ordered after lab abnormalities were seen. Patient was given antibiotics for possible developing cholangitis. normal lipase Imaging studies: Imaging was reviewed and read by radiology ultrasound was ordered after elevated LFTs and T. bili. This is pending at time of signout HEART SCORE: Hx: high/mod/low suspicion: 0 ECG: ST depression/nonspecific changes/normal: 0 Age: Greater than 65/45-64/less than 45: 2 Risk factors: (Hypertension, hyperlipidemia, diabetes, coronary disease, tobacco use, cocaine use): 1 Troponin: Greater than 2 times normal limits/1-2 times normal limits/normal:1 Total: 3 Exam and history seen consistent with throat burning most likely related to reflux along with elevated LFTs and T. bili with unclear etiology. Ultrasound is pending at time of signout. Patient was already given antibiotics. She is feeling much better after being medicated as above. Patient was stable at time of signout. Case was signed out to oncoming provider pending imaging and reevaluation in stable condition pending The chart was completed utilizing [employer] Speech voice recognition software. Grammatical errors, random word insertions, pronoun errors, and incomplete sentences are an occassional consequence of this system due to software limitations, ambient noise, and hardware issues. Any formal questions or concerns about the content, text, or information contained within the body of this dictation should be directly addressed to the physician salon shampoo assistant for clarification. Impression & Plan Elevated LFTs, Elevated troponin, Burning sensation of throat Discharge Plan Visit Data Chief Complaint: GI Assessment Stated Complaint: severe acid reflux, hard time swallowing ED Provider: Tia Lewis ED Midlevel Provider: Hawk Ovalles Discharge Problem: Elevated LFTs, Elevated troponin, Burning sensation of throat Patient Disposition: Still a Patient Condition: Good Discharge Instructions Interventions: ED Discharge Assessment Last Done: 08/10/25 13:28
[2025-08-10] MEDS: LIDOCAINE VISCOUS 2% 15 ML UDC PO ONE (04:17)
[2025-08-10] MEDS: FAMOTIDINE 20MG IV PUSH 20 MG/5 ML SYR IV STA (04:17)
[2025-08-10] MEDS: ALUMINUM/MAGNESIUM SUSP 30 ML UDC PO STA (04:18)
[2025-08-10 05:23] LABS: Alanine Aminotransferase 284 U/L (7-52); Albumin Globulin Ratio 1.1 (0.9-2); Albumin Level 4.2 gm/dl (3.4-5.0); Alkaline Phosphatase 256 U/L (34-104); Anion Gap 11 (3-11); Bilirubin,Total 4.1 mg/dl (0.2-1.0); Blood Urea Nitrogen 18 mg/dl (6-23); Calcium 10.8 mg/dl (8.6-10.3); Carbon Dioxide 25 mmol/L (21-32); Chloride 101 mmol/L (98-107); Creatinine Clr Calc Pharmacy 39.6 ml/min; Globulin 3.8 gm/dl (2.5-4.0); Glucose 157 mg/dl (70-99(Fasting)); Lipase 32 U/L (11-82); Sodium 137 mmol/L (136-145); Total Protein 8.0 gm/dl (6.0-8.3)
[2025-08-10] MEDS: OPTIRAY 320 100ml IV ONE (05:42)
[2025-08-10] MEDS: PIPERACILLIN/TAZOBACTAM 4.5 GM/100 ML BAG IV ONE (05:56)
--- NOTE | 2025-08-10 06:01 | XRay Report ---
EXAM: XR chest 1V portable CLINICAL HISTORY: Chest pain, nonspecific TECHNIQUE: Radiograph of chest was taken COMPARISON: none FINDINGS: The lungs are clear and well-expanded with no pulmonary infiltrate or pleural effusion. The cardiomediastinal silhouette is within normal limits. No acute osseous abnormality. IMPRESSION: No acute cardiopulmonary disease. Electronically signed by Tyler Jiménez 08-10-2025 06:00 AM
--- NOTE | 2025-08-10 06:14 | CT Scan Report ---
EXAM: CT abd pelvis IV con only CLINICAL HISTORY: elevated lfts/bili TECHNIQUE: Contiguous axial images were obtained from the level of the diaphragm to the pubic symphysis with intravenous contrast. Coronal and sagittal reconstructions were likewise performed and indicated to increase the sensitivity for detecting clinically relevant pathology. If IV contrast material had not been administered, the likelihood of detecting abnormalities relevant to the patient's condition would have been substantially decreased. CT scan was performed according to ALARA (as low as reasonably achievable). COMPARISON: 18:38:23 MANAGER REGISTRATION. FINDINGS: The visualized lung bases are clear. Sliding hiatus hernia noted. The liver is normal in size and reduced attenuation. Few hypodense lesions are noted in both lobe of liver - appears benign/ could be Cyst (Advice: USG/ Triphasic study correlation). There is no intra or extrahepatic biliary ductal dilatation. Hepatic vasculature is patent. The gallbladder is present and contracted with 3mm sized hyperdense calculus. The spleen, pancreas, and adrenal glands are unremarkable. The kidneys are normal in size and attenuation. There is no hydronephrosis. mild bilateral perinephric fat stranding. No renal calculi or renal masses are identified. Few simple cortical cyst are noted in both kidneys The ureters are normal in caliber and no ureteral calculi are seen. The bladder is normal in contour. Pelvic viscera are unremarkable. No focal or diffuse bowel wall thickening or evidence of bowel obstruction is identified. No imaging evidence of appendicitis. Abdominal and pelvic vasculature is patent. No adenopathy or fluid collections are seen. No aggressive appearing osseous lesions are identified. Diffuse atherosclerotic calcification is noted involving aorta iliac arteries. Fat containing paraumbilical hernia. Multiple small uncomplicated colonic diverticulosis. IMPRESSION: 1. Sliding hiatus hernia noted.-stable. 2. Hepatic steatosis.-stable. 3. Few hypodense lesions are noted in both lobe of liver - appears benign/ could be Cyst (Advice: Triphasic study correlation).-stable. 4. Cholelithiasis. New finding. USG correlation is suggested. 5. Mild bilateral perinephric fat stranding-stable. 6. Few simple cortical cyst are noted in both kidneys-stable. 7. Fat containing paraumbilical hernia.--new finding.. Previous cystic lesion is noted in at the level of umbilicus is not seen in current study. 8. Multiple small uncomplicated colonic diverticulosis-stable. 9. Diffuse atherosclerotic calcification is noted involving aorta iliac arteries.-stable. Electronically signed by Tyler Jiménez 08-10-2025 06:13 AM
[2025-08-10 06:35] LABS: Hematocrit (blood only) 44.4 % (37.0-47.0); Hemoglobin 15.0 g/dL (12.0-16.0); Immature Granulocytes # (auto) 0.03 K/uL (0.01-0.20); Immature Granulocytes % (auto) 0.6 %; Mean Corpuscular Hemoglobin 29.4 pg (25.0-34.0); Mean Corpuscular Volume 86.9 fL (80.0-100.0); Platelet Count 230 K/uL (130-400); RDW Standard Deviation 43.3 fL (36.4-46.3); Red Blood Count 5.11 M/uL (4.20-5.40); White Blood Count 4.91 K/ul (4.8-10.8)
--- NOTE | 2025-08-10 06:38 | Emergency Department Note ---
ED Visit Note Patient case received in signout at 0630 HRS on 08/10/2025 from JOHNIE Olson. At that time we are pending ultrasound and additional laboratory studies to result. I did reevaluate the patient at time of signout. She was resting comfortably. No pain. She did add additional history noting that the symptoms began this past following eating some food with gravy. Pain initially was in the right upper quadrant area radiating to the neck area. She felt like it was more like reflux but symptoms continue to come and go. She does have s cleral icterus. Abdominal exam at this time is overall benign. There was no tenderness upon palpation. No guarding. No rigidity. Patient denies any excessive acetaminophen use. Hepatitis is felt to be unlikely but testing pending as ordered. There is no leukocytosis or concerning anemia. There is however new transaminitis and hyperbilirubinemia. Lipase normal. CT scan abdomen/pelvis reveals sliding hiatal hernia, hepatic steatosis, liver lesions all which are stable. There is however a new finding of cholelithiasis. There is also a fat- containing periumbilical hernia however this is not felt to be contributory at this time. Patient has already been empirically covered with IV Zosyn noting the new transaminitis, hyperbilirubinemia in the setting of new cholelithiasis and pain. NO fever at this time. Presentation may represent choledocholithiasis. Ultrasound results as below. 0922: I spoke with JOHNIE Vazquez with general surgery. Plan is MRCP. MRCP resulted. Results as below. No stone. Case discussed with the hospitalist service. Please refer to further documentation regarding her stay. EXAM: US gallbladder CLINICAL HISTORY: elevated lfts/tbili. TECHNIQUE: Limited ultrasound of the liver and gallbladder was performed in greyscale and Doppler. Multiple images were obtained in transverse and longitudinal planes. COMPARISON: 04/01/2024, 08/10/2025 CT FINDINGS: Liver: Liver size: Liver is at the upper limit of normal size values measuring 168 mm in craniocaudal length showing slight heterogeneous echotexture A dumbbell shaped anechoic seen in segment 2 of the left lobe of the liver, showing no vascularity on color Doppler, measuring 15 x 15 x 20 mm in size, likely a parenchymal cyst An echogenic focus of 2.5 mm seen in the right lobe of the liver segment 8 near the subcapsular region could be a small hemangioma. No evidence of focal lesions, cysts, or masses. Hepatic vasculature appears normal. Normal color-flow seen in the portal vein on Doppler Gallbladder: Gallbladder size: Partially contracted Gallbladder shows mild but diffuse wall thickening which measures 3.36 mm A nonshadowing echogenic focus seen in the gallbladder measuring 3.0 mm in size represents a calculus No evidence of gallbladder wall edema or signs of acute cholecystitis. Biliary Tree: Common bile duct diameter: CBD normal in caliber, measuring 4.5 mm at the brenda hepatis. Common bile duct is within normal limits in caliber and not dilated. No evidence of choledocholithiasis or biliary obstruction. Additional findings: Right kidney appears normal size showing normal color-flow and Doppler Lower pole of the right kidney shows few simple parenchymal cysts, larger one measuring 13 x 10 x 13 mm size Imaged pancreatic head appears unremarkable IMPRESSION: 1. Liver is at the upper limit of normal size values, with echogenic focus, possible hemangioma of 2.5 mm seen in the right lobe segment 8 near the subcapsular region, with a coexistent dumbbell shaped parenchymal cyst near the subcapsular surface of segment 2 of the left lobe 2. Partially contracted gallbladder showing mild, but diffuse wall thickening along with a non-shadowing intraluminalpossible calculus, clinical and Hernández sign correlation advised to assess for any superimposed acute cholecystitis. 3. No pericholecystic fluid seen on current study 4. Right renal lower pole simple parenchymal cysts as described. 5. No significant interval new findings. Electronically signed by Raul Magaña 08-10-2025 08:50 AM MR MRCP CLINICAL HISTORY: RUQ abd pain, LFT elev, T bili elev COMPARISON STUDY: Ultrasound and CT earlier today FINDINGS: There is motion artifact. Tiny gallstone seen on the prior studies is not visualized on this exam. No evidence of acute cholecystitis seen. Common bile duct measures normal diameter of 4 mm. No intrahepatic biliary dilatation seen. No common bile duct stones seen. Pancreatic duct is nondilated. A few small cysts again seen at the liver and kidneys. IMPRESSION: No common bile duct stone or biliary dilatation seen. ACT 112: Negative or not required by law. Electronically signed by: Davy Tao M.D. 08/10/2025 11:37 AM .
[2025-08-10 07:08] LABS: Potassium 3.3 mmol/L (3.5-5.1)
[2025-08-10 07:15] LABS: INR 1.0 (0.9-1.1); Partial Thromboplastin Time 25 Seconds (21-31); Prothrombin Time 10.6 Seconds (9.0-12.0)
--- NOTE | 2025-08-10 08:50 | Ultrasound Report ---
EXAM: US gallbladder CLINICAL HISTORY: elevated lfts/tbili. TECHNIQUE: Limited ultrasound of the liver and gallbladder was performed in greyscale and Doppler. Multiple images were obtained in transverse and longitudinal planes. COMPARISON: 04/01/2024, 08/10/2025 CT FINDINGS: Liver: Liver size: Liver is at the upper limit of normal size values measuring 168 mm in craniocaudal length showing slight heterogeneous echotexture A dumbbell shaped anechoic seen in segment 2 of the left lobe of the liver, showing no vascularity on color Doppler, measuring 15 x 15 x 20 mm in size, likely a parenchymal cyst An echogenic focus of 2.5 mm seen in the right lobe of the liver segment 8 near the subcapsular region could be a small hemangioma. No evidence of focal lesions, cysts, or masses. Hepatic vasculature appears normal. Normal color-flow seen in the portal vein on Doppler Gallbladder: Gallbladder size: Partially contracted Gallbladder shows mild but diffuse wall thickening which measures 3.36 mm A nonshadowing echogenic focus seen in the gallbladder measuring 3.0 mm in size represents a calculus No evidence of gallbladder wall edema or signs of acute cholecystitis. Biliary Tree: Common bile duct diameter: CBD normal in caliber, measuring 4.5 mm at the brenda hepatis. Common bile duct is within normal limits in caliber and not dilated. No evidence of choledocholithiasis or biliary obstruction. Additional findings: Right kidney appears normal size showing normal color-flow and Doppler Lower pole of the right kidney shows few simple parenchymal cysts, larger one measuring 13 x 10 x 13 mm size Imaged pancreatic head appears unremarkable IMPRESSION: 1. Liver is at the upper limit of normal size values, with echogenic focus, possible hemangioma of 2.5 mm seen in the right lobe segment 8 near the subcapsular region, with a coexistent dumbbell shaped parenchymal cyst near the subcapsular surface of segment 2 of the left lobe 2. Partially contracted gallbladder showing mild, but diffuse wall thickening along with a non-shadowing intraluminalpossible calculus, clinical and Hernández sign correlation advised to assess for any superimposed acute cholecystitis. 3. No pericholecystic fluid seen on current study 4. Right renal lower pole simple parenchymal cysts as described. 5. No significant interval new findings. Electronically signed by Raul Magaña 08-10-2025 08:50 AM
[2025-08-10 09:38] LABS: Hep B Surface Ag with confirm Negative (Negative)
[2025-08-10 09:43] LABS: Hep C Ab Rflx HepCQuant RNA Negative (Negative)
[2025-08-10 09:56] LABS: Appearance Urine Clear (Clear); Bacteria Urine Automated None Seen (None Seen); Cast Urine Automated 0-2 /lpf (0-2); Epithelial Cell Urine Auto 0-2 /hpf (0-2); Glucose Urine UA Negative (Negative); RBC Urine Automated 0-2 /hpf (0-2)
--- NOTE | 2025-08-10 11:39 | Magnetic Resonance Report ---
MR MRCP CLINICAL HISTORY: RUQ abd pain, LFT elev, T bili elev COMPARISON STUDY: Ultrasound and CT earlier today FINDINGS: There is motion artifact. Tiny gallstone seen on the prior studies is not visualized on thi s exam. No evidence of acute cholecystitis seen. Common bile duct measures normal diameter of 4 mm. N o intrahepatic biliary dilatation seen. No common bile duct stones seen. Pancreatic duct is nondilate d. A few small cysts again seen at the liver and kidneys. IMPRESSION: No common bile duct stone or biliary dilatation seen. ACT 112: Negative or not required by law. Electronically signed by: Davy Tao M.D. 08/10/2025 11:37 AM
[2025-08-10] MEDS: SODIUM CHLORIDE 0.9% 500 ML IV ONE (11:44)
--- NOTE | 2025-08-10 13:07 | History & Physical Report ---
Date of Service August 10, 2025 Assessment & Plan (1) Burning sensation of throat: (2) Elevated LFTs: (3) S/P repair of ventral hernia: (4) Obesity (BMI 35.0-39.9 without comorbidity): (5) HTN (hypertension): (6) Aortic stenosis: Plan 85 yo pleasant female with pretty much healthy otherwise presented to ED with acute GI illness. She presents with burning throat, h/o recent diarrhoea and inability to eat d/t throat discomfort. She had one episode of right flank pain but not RUQ pain that she admits to me. No fever, No UTI sx, No vomiting, however keeps feeling unwell and is not able to eat. At ED liver function test revealed obstructive pattern with elevated direct bili and reaised ALP, along with raised AST/ALT, along with e/o cholelithiasis in CT AP, ended up doing MRCP which is clear. Clinically pt does not appear to be in acute cholecystitis, no such evidence in imaging as well. I am admitting for observation and further investigation if needed. #UGI issue - Throat burning, swallowing difficulty. - Started after taking Augmentin, never had this issue before D.D: Augmentin SE vs GERD vs Swallowing issue vs post gastroenteritis symptom Given timeline of sx starting after augmentin use, this is potential Differential, however thus is definitely not the reason for her transaminitis with obstructive patient LFTs. I do suspect patient presentation is mixture of different pathology. I do not think patient has underlying swallowing issue. She does not admit reflux. I do think this could have been precipitated by Augmentin use. Fortunately she completed dose OSH. Plan: Admit inpatient( med/surg Tele as she has bradycardia) Iv famotidine 20 mg BID. NPO, advance diet as tolerated, can allow clears if pt feels ready. Will reevaluate tomorrow AM if she needs swallow eval- which I suspect very less. #Imaging dx of Cholelithiasis - Clinically patient stable, I do not think this is acute massimo. However concerning due to obstructive LFTs pattern. - Was ordered MRCP in ED-- MRCP clear. - ED provider initiated communication with general surgery team-- appreciate rec GS dejuan continue to follow. - I do no see clear indication of urgent surgical intervention for her, unless GS team diasgrees. Plan: reassess AM for any worsening #Obstructive jaundice with Transaminitis. - Lab findings significant for obstructive jaundice with elevated DB, Bili in urine, ALP rise. - CT AP: cholelithiasis. - MRCP; Normal CBD. D/D: Possible clearance of choledocholithiasis vs hepatitis vs infectious mono. Possible clearance of choledocho corresponds to her symptoms of GI rumbling which could happen when stone is passed out from duct to small intestine. Otherwise there is no stone in her CBD in MRCP which is reassuring. Patient having normal LFTs and all of sudden obstructive pattern with vague GI symptoms would be justified as GB sx, however patient is stable enough that i do not suspect she need immediate ERCP. Plan: Will involve Surgery team in decision making. Hepatitis panel awaiting. Trend AM lab. #Bradycardia - Pt bradycardic in baseline as well, however it is worsened this admission, still asymptomatic for this. EKG: Sinus bradycardia without block, pt w/o acute cardiac symptoms. Potentially elevated bilirubin is a cause of bradycardia as well, which could be the reason of worsening heart rate in her situation. Plan: Admit in Telemetry unit. Overnight trend. Would not treat HR perse unless she is symptomatic. She will drop down even more during night, however would not treat in that situation as well unless patient symptomatic. #HTN: - BP today: 160/80s. - Pt on amlodipine and chlorthalidone at home; will continue Dispo: Admit med/Surg tele DVT: SCDs. Code: Full History of Present Illness Primary Care Provider: Madelin Patino DO Miss Gonzalez is 85-year-old female presents to ER complaining of throat burning has been on Augmentin for the past week for a dental infection. She started antibiotics on 08/03 for dental infection and he most symptoms started on 08/04. She was taking augmentin three times a days and was taking them w/o food. Her son later suggested to take them with food and she tried to take some beef slices which she did't tolerate. She has never taken antibiotics in last 25years. Initially started with lot of gurgling in her belly. She also had multiple episodes of diarrhoea on and . Never noticed mucus or blood but poop was foul smelling. No nausea/ vomiting but she did not have an appetite. She did not Forgan accept having RUQ pain to me, but mentioned that this morning she has pain her her right flank region which was new in this timeline. Her most bothering issue now is burning throat, yesterday she reached to a point that it was really uncomfortable for her to drink even a glass of water. She felt kind of uneasy, like she is pushing against pressure, Would say 3/10 is she has to describe this discomfort in numbers. No epigastric pain, no radiation back. She tried some mustard, which would usually help her burning, but did not help this time despite taking 1 or 2 teaspoon of it. No fever throughout. No vomiting. No h/o having gall stone in past. Belly is still rumbling. Diarrhoea slowed down , the last BM she has was last night, it was good amount, soft in consistency. h.o hernia repair surgery 1 year ago, she presented in [facility]. Her belly rumble nothing closer during time as admits. After coming to ED, she was found to have deranged liver function implying obstructive pattern with DB elevated and AST ALT ALP high as well. Imaging showed cholelithiasis with clear MRCP. Allergies Allergy/AdvReac Type Severity Reaction Status Date / Time lisinopril Allergy Severe Hives Verified 05/14/24 09:10 nitrofurantoin Allergy Severe Hives Verified 05/14/24 09:10 [From Macrobid] Home Medications Medication Instructions Recorded Confirmed Type chlorthalidone 25 mg tablet 25 mg PO QAM 02/23/19 05/14/24 History amlodipine 10 mg tablet 10 mg PO QAM 03/22/21 05/14/24 History exemestane 25 mg tablet (Aromasin) 25 mg PO QAM 08/30/22 05/14/24 History oxybutynin chloride 5 mg 5 mg PO DAILY PRN urinary 03/16/23 05/14/24 History tablet,extended release 24 hr discomfort acetaminophen 500 mg tablet 500 - 1,000 mg PO Q6H PRN Pain 03/28/23 05/14/24 History turmeric 400 mg capsule 0 mg PO DAILY 09/13/23 05/14/24 History jmxr-inkrg-qv1-lzv-sol-veig-sterols 1 cap PO DAILY 04/01/24 05/14/24 History 375 mg-100 mg-36 mg-54 mg capsule (Glucosamine Chondroitin PLUS) Past Med/Surg History Problem List (Updated 08/10/25 @ 06:06 by Yessenia Olson PA-C) Burning sensation of throat (Acute) Elevated troponin (Acute) Elevated LFTs (Acute) S/P repair of ventral hernia Obesity (BMI 35.0-39.9 without comorbidity) Incarcerated ventral hernia Vomiting (Acute) Abdominal pain (Acute) HTN (hypertension) Sleep apnea CPAP Aortic stenosis Mild to moderate per 04/2022 ECHO Abdominal pain (Acute) SBO (small bowel obstruction) (Acute) Status post left hip replacement Malignant neoplasm of central portion of right breast in female, estrogen receptor positive (12/13/20) Encounter for pre-operative examination Medical History (Updated 08/10/25 @ 06:06 by Yessenia Olson PA-C) Carotid artery aneurysm Per head MRA 12/09/21= No change in a 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 No additional intracranial aneurysms. History of COVID-19 06/2022 asymptomatic Osteoarthritis Diverticular disease History of breast cancer Dx'd January 2021 - Rt breast - treated surgically (lumpectomy) Cardiac murmur Follows with Dr. Rawls. Since childhood - with PSH GI bleed Years ago Surgical History (Updated 04/02/24 @ 15:29 by Elizabeth Mondragon RN) H/O ventral hernia repair (04/01/24) Open Incarcerated Ventral Hernia Repair(Not Applicable) - Gerardo Graham DO History of colonoscopy History of surgery on left wrist Status post hip replacement Right History of total knee replacement (TKR) bilateral History of ultrasound guided needle biopsy (12/13/20) Right Breast History of lumpectomy (01/21/21) Right [place]-vesical fistula hx surgical repair Family History Father No problems noted. Mother No problems noted. Son No problems noted. Son No problems noted. Son No problems noted. Other Family history non-contributory No family history of adverse response to anesthesia Social History Smoking Status: Never smoker Second Hand Exposure: No; Do You Dip or Chew Tobacco: No; Hx Alcohol Use: Yes Alcohol type: wine Alcohol Intake Frequency: Monthly or L ess Hx Substance Use: No Preferred Language: Fijian Communication Ability: Effective Visual Impairment: No Limitations Hearing Ability: Normal Lead Informatica Developer Required: No Beliefs That Will Affect Care: None marital status: Current Living Situation: Spouse Current Living Situation Comment: lives in 1 story home with 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 No rhonchi, wheezes, or crackles. No increased work of breathing GI: Soft, Nondistended, Nontender, Normal Bowel sounds + No signs of acute abdomen MSK: No gross deformities noted Skin: Warm, Dry, No rashes Neuro: Alert, Oriented to TPP, No Focal deficit Psych: Mood and Affect congruent, Cooperative on exam Results & Data Results & Data Vital Signs (Past 12 Hours) Vital Signs Temp Pulse Pulse Resp BP BP Pulse Ox 08/10/25 12:20 52 L 08/10/25 11:56 40 L 16 145/79 H 94 08/10/25 09:48 60 19 144/82 H 99 08/10/25 09:06 41 L 15 165/80 H 95 08/10/25 08:20 47 L 19 179/86 H 95 08/10/25 08:15 43 L 08/10/25 07:10 44 L 16 177/84 H 96 08/10/25 06:00 68 16 147/81 H 96 08/10/25 04:29 57 L 16 95 08/10/25 04:29 57 L 16 157/81 H 95 08/10/25 04:13 63 08/10/25 03:54 36.6 C 77 18 168/142 H 98 O2 Del Method 08/10/25 12:20 08/10/25 11:56 Room Air 08/10/25 09:48 Room Air 08/10/25 09:06 Room Air 08/10/25 08:20 Room Air 08/10/25 08:15 08/10/25 07:10 Room Air 08/10/25 06:00 Room Air 08/10/25 04:29 Room Air 08/10/25 04:29 Room Air 08/10/25 04:13 08/10/25 03:54 Room Air Supervising Physician Co-Signing Physician Notes I personally examined the patient and verified all kim points of history and exam, discussed case, and agree with decision making with Dr Villar feeling like food is stuck and just needs to burp mostly came in because she couldn't really eat due to feeling full / feeling like esophagus was full vitals noted nad heent nc at mmm abd soft mild distention nontender no guarding no rebound no rigidity dysphagia, diarrhea, poor PO intake, dehydration, elevated LFTs - likely both augmentin ADR and mono-like virus - symptomatic and supportive care, follow, time bradycardia - no sx. follow given fairly low rates, although looks as though she may run low fairly often otherwise as above
[2025-08-10] MEDS ORDERED: HYDROmorphone INJ 0.5 MG/0.5 ML SYR IV PRN ×2 (13:28)
[2025-08-10] MEDS ORDERED: ONDANSETRON INJ 2 MG/ML 2 ML VIAL IV PRN (13:28)
[2025-08-10] MEDS: FAMOTIDINE 20MG IV PUSH 20 MG/5 ML SYR IV SCH ×2 (13:56→21:44)
--- NOTE | 2025-08-10 14:06 | Billing Data ---
Date of Service August 10, 2025 Coding Level of Care Code 63582 INT INP/OBS CARE
--- NOTE | 2025-08-10 14:46 | Electrocardiogram Report ---
Test Reason : Blood Pressure : */* mmHG Vent. Rate : 55 BPM Atrial Rate : 55 BPM P-R Int : 184 ms QRS Dur : 90 ms QT Int : 446 ms P-R-T Axes : 60 -11 103 degrees QTcB Int : 426 ms Sinus bradycardia Left ventricular hypertrophy with repolarization abnormality ( R in aVL ) Cannot rule out Septal infarct , age undetermined Abnormal ECG When compared with ECG of 01-Apr-2024 19:14, No significant change was found Confirmed by Gt Tesfaye ([id number]) on 08/10/2025 2:46:54 PM Referred By: REFERRED SELF Confirmed By: Gt Tesfaye
--- NOTE | 2025-08-10 14:49 | Electrocardiogram Report ---
Test Reason : Blood Pressure : */* mmHG Vent. Rate : 59 BPM Atrial Rate : 59 BPM P-R Int : 186 ms QRS Dur : 86 ms QT Int : 464 ms P-R-T Axes : 54 -8 83 degrees QTcB Int : 459 ms Sinus bradycardia Moderate voltage criteria for LVH, may be normal variant ( R in aVL T wave abnormality, consider lateral ischemia Abnormal ECG When compared with ECG of 10-Aug-2025 04:04, (unconfirmed) No significant change was found Confirmed by Gt Tesfaye ([id number]) on 08/10/2025 2:48:40 PM Referred By: REFERRED SELF Confirmed By: Gt Tesfaye
--- NOTE | 2025-08-10 15:45 | Surgery Consultation ---
Date of Consultation August 10, 2025 Assessment & Plan (1) Elevated LFTs: Patient with epigastric/RUQ pain with elevated LFTs and imaging with cholelithiasis. -Patient seen and evaluated this afternoon at bedside, pain currently well- managed and symptoms have seemed to subside at this time. -She has been started on Zosyn, continue for now -Patient with normal WBC, however LFTs elevated (Tbili 4.1, AST 86, ALT 28, Alk Phos 256), and lipase WNL. - Given her elevated LFTs an MRCP was obtained which was found to be negative for any CBD stone/dilation. Will plan to repeat LFTs in the morning. -Patient's case was discussed with attending surgeon, Dr. Graham, if LFTs are downtrending tomorrow morning we will tentatively plan for cholecystectomy tomorrow. -Will make NPO after midnight -Continue medical management per primary team, surgery to follow History of Present Illness Reason for Consultation: abdominal pain History of Present Illness Patient is an 10-year-old female presented to the emergency department earlier this morning due to complaints of severe indigestion. Patient states that she been experiencing "throat burning" along with epigastric/chest pain for the last few days after eating a meal with gravy. At time states the pain does migrate to her RUQ and into her upper back as well. She had tried to take a few things [id number] to help with her symptoms however was unsuccessful. Patient denies any associated nausea, vomiting, fevers or chills at the onset of her symptoms. Patient was worked up in the emergency department and labs showing transaminitis and hyperbilirubinemia and imaging concerning for cholelithiasis and diffuse wall thickening. Patient also underwent MRCP imaging due to concerns of elevated LFTs to rule out choledocholithiasis, which did not reveal any CBD stone or dilation. Patient was admitted to the medical service and surgery was consulted for further evaluation of the patient. The patient was seen and evaluated this afternoon at bedside, she is resting comfortably in bed, vital signs are stable, afebrile, and she is nontoxic- appearing. During my evaluation patient states abdominal pain has subsided with pain medication. She does have a surgical history of an open incarcerated ventral hernia repair in [address] Graham along with a colo-vesical fistula repair in the past. Allergies Allergy/AdvReac Type Severity Reaction Status Date / Time lisinopril Allergy Severe Hives Verified 05/14/24 09:10 nitrofurantoin Allergy Severe Hives Verified 05/14/24 09:10 [From Macrobid] Home Medications Medication Instructions Recorded Confirmed Type chlorthalidone 25 mg tablet 25 mg PO QAM 02/23/19 08/10/25 History amlodipine 10 mg tablet 10 mg PO QAM 03/22/21 08/10/25 History exemestane 25 mg tablet (Aromasin) 25 mg PO QAM 08/30/22 08/10/25 History oxybutynin chloride 5 mg 5 mg PO DAILY PRN urinary 03/16/23 08/10/25 History tablet,extended release 24 hr discomfort acetaminophen 500 mg tablet 500 - 1,000 mg PO Q6H PRN Pain 03/28/23 08/10/25 History turmeric 400 mg capsule 0 mg PO DAILY 09/13/23 08/10/25 History mtqo-mijqw-xr1-box-kep-ppuf-sterols 1 cap PO DAILY 04/01/24 08/10/25 History 375 mg-100 mg-36 mg-54 mg capsule (Glucosamine Chondroitin PLUS) sacubitril 24 mg-valsartan 26 mg 1 tab PO BID 08/10/25 08/10/25 History tablet Patient History Medical History (Updated 08/10/25 @ 06:06 by Yessenia Olson PA-C) Carotid artery aneurysm Per head MRA 12/09/21= No change in a 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 No additional intracranial aneurysms. History of COVID-19 06/2022 asymptomatic Osteoarthritis Diverticular disease History of breast cancer Dx'd January 2021 - Rt breast - treated surgically (lumpectomy) Cardiac murmur Follows with Dr. Rawls. Since childhood - with PSH GI bleed Years ago Surgical History (Updated 04/02/24 @ 15:29 by Elizabeth Mondragon RN) H/O ventral hernia repair (04/01/24) Open Incarcerated Ventral Hernia Repair(Not Applicable) - Gerardo Graham DO History of colonoscopy History of surgery on left wrist Status post hip replacement Right History of total knee replacement (TKR) bilateral History of ultrasound guided needle biopsy (12/13/20) Right Breast History of lumpectomy (01/21/21) Right [place]-vesical fistula hx surgical repair Family History Father No problems noted. Mother No problems noted. Son No problems noted. Son No problems noted. Son No problems noted. Other Family history non-contributory No family history of adverse response to anesthesia Social History Smoking Status: Never smoker Second Hand Exposure: No; Do You Dip or Chew Tobacco: No; Hx Alcohol Use: Yes Alcohol type: wine Alcohol Intake Frequency: Monthly or Less Hx Substance Use: No Preferred Language: Palauan Communication Ability: Effective Visual Impairment: No Limitations Hearing Ability: Normal Safety Grooving Machine Operator Required: No Beliefs That Will Affect Care: None marital status: Current Living Situation: Spouse Current Living Situation Comment: lives in 1 story home with 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 How many Children do You have: 3 Feels Safe at Home: Yes Childhood Exposure to Second-Hand Smoke: No Diet: other and regular Diet Comment: Nutri System caffeine: No during the past year weight has: decreased > 10 lbs Dental Care, Regularly: Yes Assistive Devices: CPAP and Glasses Review of Systems Constitutional: no fever, no chills and no weakness Respiratory: no cough, no chest congestion and no dyspnea Cardiovascular: no chest pain, no palpitations and no syncope Gastrointestinal: as per Subjective / HPI and + heartburn; no nausea and no vomiting Genitourinary: no difficulty urinating and no hematuria Physical Exam Constitutional: WD/WN, vitals as above Respiratory: normal respiratory effort, lungs clear to auscultation Cardiovascular: Rate/Rhythm: regular rate Gastrointestinal (Abdomen): Abdomen soft, nondistended, nontender to palpation Results & Data Vital Signs (Past 12 Hours) Vital Signs Temp Pulse Pulse Resp BP BP Pulse Ox 08/10/25 15:27 71 08/10/25 14:02 66 18 161/86 H 100 08/10/25 12:20 52 L 08/10/25 11:56 40 L 16 145/79 H 94 08/10/25 09:48 60 19 144/82 H 99 08/10/25 09:06 41 L 15 165/80 H 95 08/10/25 08:20 47 L 19 179/86 H 95 08/10/25 08:15 43 L 08/10/25 07:10 44 L 16 177/84 H 96 08/10/25 06:00 68 16 147/81 H 96 08/10/25 04:29 57 L 16 95 08/10/25 04:29 57 L 16 157/81 H 95 08/10/25 04:13 63 08/10/25 03:54 36.6 C 77 18 168/142 H 98 O2 Del Method 08/10/25 15:27 08/10/25 14:02 Room Air 08/10/25 12:20 08/10/25 11:56 Room Air 08/10/25 09:48 Room Air 08/10/25 09:06 Room Air 08/10/25 08:20 Room Air 08/10/25 08:15 08/10/25 07:10 Room Air 08/10/25 06:00 Room Air 08/10/25 04:29 Room Air 08/10/25 04:29 Room Air 08/10/25 04:13 08/10/25 03:54 Room Air Diagnostic Findings MR MRCP CLINICAL HISTORY: RUQ abd pain, LFT elev, T bili elev COMPARISON STUDY: Ultrasound and CT earlier today FINDINGS: There is motion artifact. Tiny gallstone seen on the prior studies is not visualized on this exam. No evidence of acute cholecystitis seen. Common bile duct measures normal diameter of 4 mm. No intrahepatic biliary dilatation seen. No common bile duct stones seen. Pancreatic duct is nondilated. A few small cysts again seen at the liver and kidneys. IMPRESSION: No common bile duct stone or biliary dilatation seen. EXAM: US gallbladder CLINICAL HISTORY: elevated lfts/tbili. TECHNIQUE: Limited ultrasound of the liver and gallbladder was performed in greyscale and Doppler. Multiple images were obtained in transverse and longitudinal planes. COMPARISON: 04/01/2024, 08/10/2025 CT FINDINGS: Liver: Liver size: Liver is at the upper limit of normal size values measuring 168 mm in craniocaudal length showing slight heterogeneous echotexture A dumbbell shaped anechoic seen in segment 2 of the left lobe of the liver, showing no vascularity on color Doppler, measuring 15 x 15 x 20 mm in size, likely a parenchymal cyst An echogenic focus of 2.5 mm seen in the right lobe of the liver segment 8 near the subcapsular region could be a small hemangioma. No evidence of focal lesions, cysts, or masses. Hepatic vasculature appears normal. Normal color-flow seen in the portal vein on Doppler Gallbladder: Gallbladder size: Partially contracted Gallbladder shows mild but diffuse wall thickening which measures 3.36 mm A nonshadowing echogenic focus seen in the gallbladder measuring 3.0 mm in size represents a calculus No evidence of gallbladder wall edema or signs of acute cholecystitis. Biliary Tree: Common bile duct diameter: CBD normal in caliber, measuring 4.5 mm at the brenda hepatis. Common bile duct is within normal limits in caliber and not dilated. No evidence of choledocholithiasis or biliary obstruction. Additional findings: Right kidney appears normal size showing normal color-flow and Doppler Lower pole of the right kidney shows few simple parenchymal cysts, larger one measuring 13 x 10 x 13 mm size Imaged pancreatic head appears unremarkable IMPRESSION: 1. Liver is at the upper limit of normal size values, with echogenic focus, possible hemangioma of 2.5 mm seen in the right lobe segment 8 near the subcapsular region, with a coexistent dumbbell shaped parenchymal cyst near the subcapsular surface of segment 2 of the left lobe 2. Partially contracted gallbladder showing mild, but diffuse wall thickening along with a non-shadowing intraluminalpossible calculus, clinical and Hernández sign correlation advised to assess for any superimposed acute cholecystitis. 3. No pericholecystic fluid seen on current study 4. Right renal lower pole simple parenchymal cysts as described. 5. No significant interval new findings. PG Care Time/CCT Total # of Minutes Spent Total Time Spent with Patient: Total time spent is greater than 50% in coordination of care (as documented) at patient's floor/unit and/or counseling patient: [place] [address] Office/OBS Consult Lvl 1 Patient Type New Medical Decision Making Straight Forward Diagnoses Elevated LFTs R79.89
[2025-08-10] MEDS: LACTATED RINGER'S 1,000 ML IV SCH (15:58)
[2025-08-10] MEDS: CHLORTHALIDONE 25 MG TAB PO SCH (20:02)
[2025-08-10] MEDS: ADVANCED PROBIOTIC 625 MG CAPSULE PO ONE (21:44)
--- NOTE | 2025-08-11 09:00 | Hospitalist Progress Note ---
Date of Service August 11, 2025 Assessment & Plan (1) Burning sensation of throat: (2) Elevated LFTs: (3) S/P repair of ventral hernia: (4) Obesity (BMI 35.0-39.9 without comorbidity): (5) HTN (hypertension): (6) Aortic stenosis: Plan 85 yo pleasant female with pretty much healthy otherwise presented to ED with acute GI illness. She presents with burning throat, h/o recent diarrhoea and inability to eat d/t throat discomfort. She had one episode of right flank pain but not RUQ pain that she admits to me. No fever, No UTI sx, No vomiting, however keeps feeling unwell and is not able to eat. At ED liver function test revealed obstructive pattern with elevated direct bili and reaised ALP, along with raised AST/ALT, along with e/o cholelithiasis in CT AP, ended up doing MRCP which is clear. Clinically pt does not appear to be in acute cholecystitis, no such evidence in imaging as well. She did well overnight with #UGI issue *IMPROVED - Throat burning, swallowing difficulty. - Started after taking Augmentin, never had this issue before D.D: Augmentin SE vs GERD vs Swallowing issue vs post gastroenteritis symptom Given timeline of sx starting after Augmentin use, this is potential Differential, however thus is definitely not the reason for her transaminitis with obstructive patient LFTs. I do suspect patient presentation is mixture of different pathology. I do not think patient has underlying swallowing issue. She does not admit reflux. I do think this could have been precipitated by Augmentin use. Fortunately she completed dose OSH. Plan: Continue PPI regime: famotidine 20 mg BID+ Protonix 40 BID. NPO until surgery decision. #Imaging dx of Cholelithiasis - Clinically patient stable. However concerning due to obstructive LFTs pattern. - Was ordered MRCP in ED-- MRCP clear. General Surgery Following. #Obstructive jaundice with Transaminitis. - Lab findings significant for obstructive jaundice with elevated DB, Bili in urine, ALP rise. - CT AP: cholelithiasis. - MRCP; Normal CBD. D/D: Possible clearance of choledocholithiasis vs hepatitis vs infectious mono. Possible clearance of choledocho corresponds to her symptoms of GI rumbling which could happen when stone is passed out from duct to small intestine. Otherwise there is no stone in her CBD in MRCP which is reassuring. Patient having normal LFTs and all of sudden obstructive pattern with vague GI symptoms would be justified as GB sx, however patient is stable enough that i do not suspect she need immediate ERCP. - AM Lab: Continues to remain obstructive pattern. GI on board: appreciate rec, continue monitoring. General surgery on board: appreciate rec, cancelled surgery plan today for continued obstructive pattern #Bradycardia Sinus Bradycardia. - Pt bradycardic in baseline as well, however it is worsened this admission, still asymptomatic for this. EKG: Sinus bradycardia without block, pt w/o acute cardiac symptoms. Potentially elevated bilirubin is a cause of bradycardia as well, which could be the reason of worsening heart rate in her situation. Plan: Continue monitoring. #HTN: - BP today: 160/88s. - Pt on amlodipine and chlorthalidone at home; will continue Dispo: Pending management plan ERCP vs Lap Jennifer DVT: SCDs. Code: Full Admission and Anticipated Discharge Date Admission Date: August 10, 2025 Subjective Miss lee remain stable, continues to feel better today, burning throat improved, No RUQ pain, No fever, had bowel movement after admission, and it was not loose. She is hoping to have GB removded if indicated. Review of Systems Review of Systems: As per hPI Physical Exam Physical Exam: Constitutional: Well appearing, No acute distress. Did not appreciate obvious icterus in room light. HEENT: Atraumatic, Normocephalic, No conjunctival injection CVS: S1 S2 systolic murmur+, Regular Rhythm, no LE edema Respiratory: BL equal air entry with NVBS. No rhonchi, wheezes, or crackles. No increased work of breathing GI: Soft, Nondistended, Nontender, Normal Bowel sounds + No signs of acute abdomen MSK: No gross deformities noted Skin: Warm, Dry, No rashes Neuro: Alert, Oriented to TPP, No Focal deficit Psych: Mood and Affect congruent, Cooperative on exam Results & Data Results & Data Vital Signs (Past 12 Hours) Vital Signs Temp Pulse Pulse Resp BP Pulse Ox O2 Del Method 08/11/25 08:39 36.4 C L 59 L 19 137/77 95 Room Air 08/11/25 04:59 45 L 08/11/25 03:28 36.8 C 52 L 18 133/71 97 Room Air 08/11/25 00:01 44 L 08/10/25 23:23 36.9 C 58 L 18 139/64 95 Room Air Resident Activity Tracking Resident Involvement: Resident Care Provided Care Provided: Adult Hospital Medicine
[2025-08-11 09:17] LABS: Hematocrit (blood only) 45.3 % (37.0-47.0); Hemoglobin 15.5 g/dL (12.0-16.0); Immature Granulocytes # (auto) 0.01 K/uL (0.01-0.20); Immature Granulocytes % (auto) 0.2 %; Mean Corpuscular Hemoglobin 29.5 pg (25.0-34.0); Mean Corpuscular Volume 86.3 fL (80.0-100.0); Platelet Count 237 K/uL (130-400); RDW Standard Deviation 43.3 fL (36.4-46.3); Red Blood Count 5.25 M/uL (4.20-5.40); White Blood Count 4.15 K/ul (4.8-10.8)
--- NOTE | 2025-08-11 09:26 | Surgery Progress Note ---
Date of Service August 11, 2025 Assessment & Plan (1) Elevated LFTs: Plan: A.m. labs are still pending. If the LFTs have improved we will plan laparoscopic cholecystectomy possible cholangiogram. If the LFTs have not improved we will need to discuss with GI ERCP availability. I discussed potential risks of the surgery which include bleeding, infection, injury to bile duct or other organ, DVT, PE, SC, CVA etc. I have answered all of her questions. Again if the LFTs improved we will plan laparoscopic cholecystectomy later today. She agrees with the plan. (2) Calculous cholecystitis with obstruction: Admission and Anticipated Discharge Date Admission Date: August 10, 2025 Subjective Patient seen. She is feeling much better. Currently denying any abdominal or chest pain. Currently no nausea. Physical Exam Constitutional: WD/WN, vitals as above no acute distress and not ill appearing Eyes: PERRL, conjunctivae normal, anicteric sclerae EOM intact bilaterally ENMT: external ear and nose normal, oropharynx normal Ears: no hearing impairment Neck: trachea midline, no thyromegaly Respiratory: normal respiratory effort; no respiratory distress and does not use accessory muscles Cardiovascular: Rate/Rhythm: regular rate and regular rhythm Gastrointestinal (Abdomen): normal bowel sounds, soft, nontender, no hepatosplenomegaly Skin: no rashes, warm and dry Psychiatric: Orientation: alert, oriented x 3 and cooperative Results & Data Vital Signs (Past 12 Hours) Vital Signs Temp Pulse Pulse Resp BP Pulse Ox O2 Del Method 08/11/25 08:39 36.4 C L 59 L 19 137/77 95 Room Air 08/11/25 04:59 45 L 08/11/25 03:28 36.8 C 52 L 18 133/71 97 Room Air 08/11/25 00:01 44 L 08/10/25 23:23 36.9 C 58 L 18 139/64 95 Room Air PG Care Time/CCT Total # of Minutes Spent Total Time Spent with Patient: Total time spent is greater than 50% in coordination of care (as documented) at patient's floor/unit and/or counseling patient: Coding Level of Care Code 84573 SUB INP/OBS CARE 09/06MIN Diagnoses Elevated LFTs R79.89 Calculous cholecystitis with obstruction K80.01
[2025-08-11 09:43] LABS: Alanine Aminotransferase 211.0 U/L (7-52); Albumin Level 4.2 gm/dl (3.4-5.0); Alkaline Phosphatase 232.0 U/L (34-104); Anion Gap 10.0 (3-11); Bilirubin,Total 4.4 mg/dl (0.2-1.0); Blood Urea Nitrogen 14.0 mg/dl (6-23); Calcium 10.1 mg/dl (8.6-10.3); Carbon Dioxide 24.0 mmol/L (21-32); Chloride 104.0 mmol/L (98-107); Creatinine Clr Calc Pharmacy 51.4 ml/min; Potassium 3.4 mmol/L (3.5-5.1); Sodium 138.0 mmol/L (136-145); Total Protein 7.5 gm/dl (6.0-8.3)
[2025-08-11 10:02] LABS: Hepatitis A Antibody IgM NON-REACTIVE (NON-REACTIVE); Hepatitis B Core Antibody IgM NON-REACTIVE (NON-REACTIVE)
[2025-08-11] MEDS: OXYBUTYNIN CHLORIDE XL 5 MG TABCR PO PRN (10:52)
--- NOTE | 2025-08-11 11:07 | Gastrointestinal Consultation ---
Date of Consultation August 11, 2025 Assessment & Plan (1) Elevated LFTs: Clinical situation reviewed and discussed with Dr. Francis who advised on plan. There is no ERCP coverage at [facility] this week, however MRCP was negative for obstruction or biliary dilation. Would continue to rule out overlapping issues contributing to LFT elevation including mono and infectious hepatitis. Regarding concerns for cholecystitis, will defer decisions regarding cholecystectomy/IOC to general surgery. Continue to monitor LFTs. Please refer to attending physician statement for additions/revisions to the plan of care as the clinical situation continues to unfold today. Supervising Physician Co-Signing Physician Notes Patient seen and examined and plan discussed in detail with ROULA Aguilera as above. Abd: Soft, NT, ND, +BS Patient tolerated regular lunch without difficulty Continue to monitor clinical course and will make further recommendations as needed Will Defer to Surgery regarding cholecystitis and timing of cholecystectomy History of Present Illness Reason for Consultation: "Obstructive jaundice, MRCP clear, Pt really stable" Attending Physician: Jamie Casillas DO History of Present Illness Patient is an 85 yo female who is currently admitted with elevated LFTs. She originally presented to the ED due to severe epigastric burning/acid reflux that she could not resolve at home. She notes she has had right sided flank/back pain, but not true RUQ pain. No diarrhea/constipation. No vomiting. Currently T bili 4.4. D bili 3.0. AST 74. ALT 211. Alk phos 232. Hep A, B, C negative. No pertinent family history. Several imaging studies available: Abdominal US IMPRESSION: 1. Liver is at the upper limit of normal size values, with echogenic focus, possible hemangioma of 2.5 mm seen in the right lobe segment 8 near the subcapsular region, with a coexistent dumbbell shaped parenchymal cyst near the subcapsular surface of segment 2 of the left lobe 2. Partially contracted gallbladder showing mild, but diffuse wall thickening along with a non-shadowing intraluminalpossible calculus, clinical and Hernández sign correlation advised to assess for any superimposed acute cholecystitis. 3. No pericholecystic fluid seen on current study 4. Right renal lower pole simple parenchymal cysts as described. 5. No significant interval new findings. Abdominal CT CT Abdomen/pelvis: IMPRESSION: 1. Sliding hiatus hernia noted.-stable. 2. Hepatic steatosis.-stable. 3. Few hypodense lesions are noted in both lobe of liver - appears benign/ could be Cyst (Advice: Triphasic study correlation).-stable. 4. Cholelithiasis. New finding. USG correlation is suggested. 5. Mild bilateral perinephric fat stranding-stable. 6. Few simple cortical cyst are noted in both kidneys-stable. 7. Fat containing paraumbilical hernia.--new finding.. Previous cystic lesion is noted in at the level of umbilicus is not seen in current study. 8. Multiple small uncomplicated colonic diverticulosis-stable. 9. Diffuse atherosclerotic calcification is noted involving aorta iliac arteries.-stable. MRCP IMPRESSION: 1. Sliding hiatus hernia noted.-stable. 2. Hepatic steatosis.-stable. 3. Few hypodense lesions are noted in both lobe of liver - appears benign/ could be Cyst (Advice: Triphasic study correlation).-stable. 4. Cholelithiasis. New finding. USG correlation is suggested. 5. Mild bilateral perinephric fat stranding-stable. 6. Few simple cortical cyst are noted in both kidneys-stable. 7. Fat containing paraumbilical hernia.--new finding.. Previous cystic lesion is noted in at the level of umbilicus is not seen in current study. 8. Multiple small uncomplicated colonic diverticulosis-stable. 9. Diffuse atherosclerotic calcification is noted involving aorta iliac arteries.-stable. General surgery following and was planning for a cholecystectomy today, however patient's LFTs remained elevated and general surgery asking for GI opinion. Patient has abdominal discomfort. No n/v. No bowel habit changes. Allergies Allergy/AdvReac Type Severity Reaction Status Date / Time lisinopril Allergy Severe Hives Verified 05/14/24 09:10 nitrofurantoin Allergy Severe Hives Verified 05/14/24 09:10 [From [email or web address]] Home Medications Medication Instructions Recorded Confirmed Type chlorthalidone 25 mg tablet 25 mg PO QAM 02/23/19 08/10/25 History amlodipine 10 mg tablet 10 mg PO QAM 03/22/21 08/10/25 History exemestane 25 mg tablet (Aromasin) 25 mg PO QAM 08/30/22 08/10/25 History oxybutynin chloride 5 mg 5 mg PO DAILY PRN urinary 03/16/23 08/10/25 History tablet,extended release 24 hr discomfort acetaminophen 500 mg tablet 500 - 1,000 mg PO Q6H PRN Pain 03/28/23 08/10/25 History turmeric 400 mg capsule 0 mg PO DAILY 09/13/23 08/10/25 History fovj-kgqwx-kh6-azv-nft-tovr-sterols 1 cap PO DAILY 04/01/24 08/10/25 History 375 mg-100 mg-36 mg-54 mg capsule (Glucosamine Chondroitin PLUS) sacubitril 24 mg-valsartan 26 mg 1 tab PO BID 08/10/25 08/10/25 History tablet Patient History Medical History Carotid artery aneurysm Per head MRA 12/09/21= No change in a 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 No additional intracranial aneurysms. History of COVID-19 06/2022 asymptomatic Osteoarthritis Diverticular disease History of breast cancer Dx'd January 2021 - Rt breast - treated surgically (lumpectomy) Cardiac murmur Follows with Dr. Rawls. Since childhood - with PSH GI bleed Years ago Surgical History H/O ventral hernia repair (04/01/24) Open Incarcerated Ventral Hernia Repair(Not Applicable) - Gerardo Graham, DO History of colonoscopy History of surgery on left wrist Status post hip replacement Right History of total knee replacement (TKR) bilateral History of ultrasound guided needle biopsy (12/13/20) Right Breast History of lumpectomy (01/21/21) Right [place]-vesical fistula hx surgical repair Family History Father No problems noted. Mother No problems noted. Son No problems noted. Son No problems noted. Son No problems noted. Other Family history non-contributory No family history of adverse response to anesthesia Social History Smoking Status: Never smoker Second Hand Exposure: No; Do You Dip or Chew Tobacco: No; Hx Alcohol Use: Yes Alcohol type: wine Alcohol Intake Frequency: Monthly or Less Hx Substance Use: No Preferred Language: Venezuelan Communication Ability: Effective Visual Impairment: No Limitations Hearing Ability: Normal Channel Rebuilder Required: No Beliefs That Will Affect Care: None marital status: Current Living Situation: Spouse Current Living Situation Comment: lives in 1 story home with current occupational status: retired 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 How many Children do You have: 3 Feels Safe at Home: Yes Childhood Exposure to Second-Hand Smoke: No Diet: other and regular Diet Comment: Nutri System caffeine: No during the past year weight has: decreased > 10 lbs Dental Care, Regularly: Yes Assistive Devices: None Review of Systems Constitutional: no fever and no chills Respiratory: no cough and no dyspnea Cardiovascular: no chest pain Gastrointestinal: + abdominal pain Physical Exam Gastrointestinal (Abdomen): normal bowel sounds, soft, nontender, no hepatosplenomegaly Results & Data Vital Signs (Past 12 Hours) Vital Signs Temp Pulse Pulse Resp BP Pulse Ox O2 Del Method 08/11/25 09:55 36.5 C 55 L 20 166/88 H 97 Room Air 08/11/25 08:39 36.4 C L 59 L 19 137/77 95 Room Air 08/11/25 04:59 45 L 08/11/25 03:28 36.8 C 52 L 18 133/71 97 Room Air 08/11/25 00:01 44 L 08/10/25 23:23 36.9 C 58 L 18 139/64 95 Room Air PG Care Time/CCT Total # of Minutes Spent Total Time Spent with Patient: Total time spent is greater than 50% in coordination of care (as documented) at patient's floor/unit and/or counseling patient: Coding Level of Care Code 06083 INT INP/OBS CARE 3/75MIN Diagnoses Elevated LFTs R79.89
[2025-08-11 12:10] VITALS: RESP 18
[2025-08-11] MEDS: INFLUENZA VACC TS2025-26(65y+)/PF (IIV3) 0.5mL Syr IM ONE (15:42)
[2025-08-11 15:44] VITALS: TEMP 97.7; O2SAT 94
[2025-08-11] MEDS: LACTATED RINGER'S 1,000 ML IV SCH (17:44)
[2025-08-11 18:49] VITALS: BP 161/86; PULSE 66
--- NOTE | 2025-08-11 19:02 | Discharge Summary ---
Discharge Summary Date of Service August 11, 2025 Principal Dx & Hospital Course #1 = Principal Diagnosis (1) Elevated LFTs: (2) Burning sensation of throat: Plan #GI upset and elevated LFTs -ddx being combination of viral (mono like) and augmentin ADR causing sx and lab abnormalities vs a passed choledolcholith ---CT, US, MRCP without evidence of choledolcholitiasis; symptoms improved w hydration, acid suppression, supportive care ---surgery did wonder if pt would benefit from ERCP; GI did not see immediate need, and in d/w pt she preferred conservative/watchful waiting ---gave regular diet, did well for 2 meals. safe/stable for home - current working dx being resolving viral and augmentin ADR; alternative dx being choledolcholith that passed ----return/re-eval if symptoms return or worsen; f/u labs weekly until r esolution. re-eval/consider ERCP or massimo w intraop cholangiogram if labs don't improve or symptoms recur ---safe/stable for home ---see progress notes same day otherwise Notes For Next Care Provider Medication Changes From Visit none Admission HPI Per Admitting Provider Miss Gonzalez is 85-year-old female presents to ER complaining of throat burning has been on Augmentin for the past week for a dental infection. She started antibiotics on 08/03 for dental infection and he most symptoms started on 08/04. She was taking augmentin three times a days and was taking them w/o food. Her son later suggested to take them with food and she tried to take some beef slices which she did't tolerate. She has never taken antibiotics in last 25years. Initially started with lot of gurgling in her belly. She also had multiple episodes of diarrhoea on and . Never noticed mucus or blood but poop was foul smelling. No nausea/ vomiting but she did not have an appetite. She did not [place] accept having RUQ pain to me, but mentioned that this morning she has pain her her right flank region which was new in this timeline. Her most bothering issue now is burning throat, yesterday she reached to a point that it was really uncomfortable for her to drink even a glass of water. She felt kind of uneasy, like she is pushing against pressure, Would say 3/10 is she has to describe this discomfort in numbers. No epigastric pain, no radiation back. She tried some mustard, which would usually help her burning, but did not help this time despite taking 1 or 2 teaspoon of it. No fever throughout. No vomiting. No h/o having gall stone in past. Belly is still rumbling. Diarrhoea slowed down , the last BM she has was last night, it was good amount, soft in consistency. h.o hernia repair surgery 1 year ago, she presented in [facility]. Her belly rumble nothing closer during time as admits. After coming to ED, she was found to have deranged liver function implying obstructive pattern with DB elevated and AST ALT ALP high as well. Imaging showed cholelithiasis with clear MRCP. Discharge Exam gen aaox3 pleasant nad heent nc at mmm breathing unlabored no accessory muscles good effort skin no rashes no pallor or icterus neuro no focal deficits abd soft nd nt no epigastric or RUQ tenderness no guarding/rebound/rigidity. Updated Medication List Medication Instructions Recorded Confirmed Type chlorthalidone 25 mg tablet 25 mg PO QAM 02/23/19 08/10/25 History amlodipine 10 mg tablet 10 mg PO QAM 03/22/21 08/10/25 History exemestane 25 mg tablet (Aromasin) 25 mg PO QAM 08/30/22 08/10/25 History oxybutynin chloride 5 mg 5 mg PO DAILY PRN urinary 03/16/23 08/10/25 History tablet,extended release 24 hr discomfort acetaminophen 500 mg tablet 500 - 1,000 mg PO Q6H PRN Pain 03/28/23 08/10/25 History turmeric 400 mg capsule 0 mg PO DAILY 09/13/23 08/10/25 History odfb-yulps-ur7-acw-kmj-zuvv-sterols 1 cap PO DAILY 04/01/24 08/10/25 History 375 mg-100 mg-36 mg-54 mg capsule (Glucosamine Chondroitin PLUS) sacubitril 24 mg-valsartan 26 mg 1 tab PO BID 08/10/25 08/10/25 History tablet Hospital Stay Data Consultations 08/10/25 11:56 ED Decision to Admit Stat 08/10/25 13:28 Consult General Surgery Routine 08/11/25 10:31 Consult Gastroenterology Routine Procedures Performed Operation Date: 08/11/25 10:55 <No data on this case meets the specified criteria> Diagnostic Imagining Performed 08/10/25 05:25 CT Abd and Pelvis [CT abd pelvis IV con only] Stat US gallbladder Stat 08/10/25 09:26 MR MRCP Stat Pending Results Patient Have Any Pending Studies at Discharge: No Discharge Instructions Given to Patient (Per Discharging Provider) -stomach upset and elevated liver labs ---the current "working diagnosis" is that you had two main things causing the problems: a GI virus (probably a cousin to mono, like CMV) likely caused a lot of the symptoms (the diarrhea, probably a lot of the upset stomach, and the elevated labs); and then augmentin is pretty notorious for causing indigestion so the augmentin was probably also a culprit for a lot of the upper GI symptoms and burning ---the "alternate" diagnosis would be that you passed a gallstone. the reason this is still under consideration is basically that it could fit with your labwork and it is a common thing to occur - but it fits with your symptoms less, and while the ultrasound shows some stones, simply the presence of stones is quite common (probably ~25% of all people) but we didn't see any stones in the ducts/nothing looking stuck/lodged on the CT, ultrasound, or MRI. for now, as we discussed, watching you closely makes more sense than transferring you for the scope to look at the bile ducts directly (ERCP). the main risk here being that you have a recurrence of symptoms and then it's clear that a stone was the culprit (but given that the main "fix" for stones would be procedures and surgery, it probably would be better to have more of a clear "we need to" before putting you through anything like that anyway!) ---what i would recommend: -eat like you normally do -if you have some mild indigestion with eating, that can be normal as your stomach recovers from a viral infection and augmentin upsetting it - so if you do have symptoms but they're mild, then take famotidine (pepcid) 20mg twice a day for a week, and then stop it to reassess if you still need it -if you have severe symptoms or a bad rerun of what brought you in, or if you need famotidine for a while but then just can't get rid of it without feeling wo rse, then come back for re-evaluation ("back" depending on severity and when you can get in - if things are mild and you're able to see your PCP or Dr Graham in short order, the office is good; if things are really intense and/or you can't get in to the office in a timely manner, then come back here to the hospital) -have follow up labwork (CBC, CMP) checked in the office next week (and then wee jos if things aren't back to totally normal) -if the labs don't normalize over a few weeks, or things worsen again, that could be another hint of there actually being a stone --follow up with Dr Patino (or if she doesn't have availability, Dr Villar who was helping care for you here in the hospital is also with [facility] -just in the [place] office instead) next week ---follow up with Dr Graham in 1-2 weeks ---have repeat labwork (CBC, CMP) as above noted next week, then as directed --get seen right away if you have recurrent / worsening / worrisome symptoms Total Time Total Time Spent Total Time Spent (In Minutes): <30
--- NOTE | 2025-08-11 19:02 | Billing Data ---
Date of Service August 11, 2025 Coding Level of Care Code 59835 IN/OBS DISCH 30 MIN/LESS
== END 2025-08-11 19:15 | disposition home or self-care (01) | DRG 392 ==
LOC: ED 03:51 → INTOOBSV 12:56 → EDINP 12:56 → 2N 13:28